=== PATIENT | female | born 1970 | race Caucasian/White ===

== ENCOUNTER 2016-09-30 17:02 | Observation (INO) | payer OTHER ==
[~2016-09-30] VITALS: Ht 167.6 cm; Wt 98.7 kg
[~2016-09-30 17:02] MED LIST: CHOL1CAP95 PO; GABA600T PO; MULT1CHW39 PO; PANT20TA PO; TRAM-10 PO; TYLOTC500 PO; VITAMIN B12 LIQUID PO
[2016-09-30] MEDS ORDERED: ASPIRIN 324 MG CHEW PO STA (17:45)
--- NOTE | 2016-09-30 17:59 | EMERGENCY ROOM VISIT NOTE ---
History First contact with patient: 17:34 Chief Complaint: CARDIAC ASSESSMENT Stated Complaint: FLUTTERING IN CHEST, TIGHTNESS, LT ARM TIGHTNESS History of Present Illness The patient is a 46 year old female who presents to the Emergency Room via private vehicle with complaints of "fluttering in chest, tightness, left arm tightness". Patient states that a week ago she developed chest pain/heaviness and fluttering in her chest and a sensation of clamminess then her heart felt like it was going to beat out of her chest. She notes that this has been off and on since that time she's experienced 3-4 episodes of fluttering per day. She notes that the last episode was today while at the urgent care with her daughter she had pain in the anterior chest that radiated to her arm and was pulling sensation. She was referred here for further evaluation. She states the episode lasted a few seconds and was 2 hours prior to arrival. There is associated nausea. She denies any abdominal pain, vomiting, or history, hypertension, chest pain currently. She denies any trauma or injury. Review of Systems A complete 10-point Review of Systems was discussed with the patient, with pertinent positives and negatives listed in the History of Present Illness. All remaining Review of Systems questions can be considered negative unless otherwise specified. Past Medical/Surgical History Medical Problems: (1) Chest pain radiating to arm (2) Palpitations (3) Right foot drop Family History Patient reports no known family medical history. Diabetes, heart disease, high blood pressure, gallbladder disease. Social History Smoking Status: Never Smoker Marital Status: Housing Status: unknown Occupation Status: unemployed Social History: Patient lives at home with children. Current/Historical Medications Scheduled Gabapentin (Neurontin), 400 MG PO HS Multiple Vitamins W/ Minerals (Multivitamin Gummies Wome), 1 UNIT PO QAM Pantoprazole (Protonix), 40 MG PO DAILY Scheduled PRN Tramadol (Ultram), 1 TAB PO BID PRN for Pain Allergies Coded Allergies: No Known Allergies (Unverified , 09/30/16) Physical Exam Vital Signs Date Time Temp Pulse Resp B/P Pulse Ox O2 Delivery O2 Flow Rate FiO2 09/30/16 20:46 74 18 102/64 100 Room Air 09/30/16 17:42 77 09/30/16 17:22 36.7 72 18 114/62 100 Room Air Physical Exam VITAL SIGNS - Vital signs and nursing notes were reviewed. Afebrile, normotensive, non-tachycardic and saturating on room air at 100%. GENERAL -46-year-old female appearing her stated age who is in no acute distress. Communicates well with provider and answers questions appropriately. SKIN - Without rashes. HEAD - NC/AT. EYES - PERRL with EOMI bilaterally. Sclera anicteric. Palpebral conjunctiva pink and moist with no injection noted. EARS - No deformities of external structures noted on gross examination bilaterally. No pain elicited with palpation of the tragus bilaterally. External auditory canals without discharge or otorrhea. Tympanic membranes pearly sherwood without retraction or bulging. No fluid or purulent material visualized behind the TM. Handle of malleus, umbo, cone of light, pars tensa/ flaccid all easily visualized. NOSE - Midline and without cyanosis. No epistaxis or purulent drainage noted. Septum midline without deviation or septal hematoma noted. MOUTH/OROPHARYNX - Without perioral cyanosis. Buccal mucosa pink and moist and without leukoplakia. Tongue midline with equal elevation of palate bilaterally. No tonsillar hypertrophy, erythema, or exudates noted. Good dentition noted. NECK - Neck with FROM. Supple to palpation. No lymphadenopathy noted. No nuchal rigidity. No Meningismus. LUNGS - Chest wall symmetric without accessory muscle use, intercostals retractions, or central cyanosis. Normal vesicular breath sounds CTA B/L. No wheezes, rales, or rhonchi appreciated. CARDIAC - RRR with S1/S2. No murmur, rubs, or gallops appreciated. ABDOMEN - Abdominal contour without pulsations or visible masses. BS normoactive all four quadrants. No tenderness, palpable masses, hepatosplenomegaly, or ascites noted. EXTREMITIES - No clubbing or peripheral cyanosis. No pretibial edema present. Vascularly intact. +5/5 strength noted in UE/LE bilaterally. NEUROLOGIC - Cranial nerves II through XII grossly intact. Sensory intact to light touch throughout. PSYCH - Pt is very pleasant and interacts well with examiner. Medical Decision & Procedures ER Provider Diagnostic Interpretation: CHEST ONE VIEW PORTABLE CLINICAL HISTORY: Chest pain dyspnea COMPARISON STUDY: No previous studies for comparison. FINDINGS: The bones soft tissues and hemidiaphragms are normal. The cardiomediastinal silhouette is normal. The lungs are clear. The pulmonary vasculature is normal. IMPRESSION: Negative chest. Electronically signed by: Karlos Rodriguez M.D. 09/30/2016 6:24 PM Dictated Date/Time: 09/30/2016 6:21 PM Laboratory Results 09/30/16 19:11 Red Blood Count 3.97, Mean Corpuscular Volume 92.2, Mean Corpuscular Hemoglobin 31.0, Mean Corpuscular Hemoglobin Concent 33.6, Mean Platelet Volume 10.3, Neutrophils (%) (Auto) 49.9, Lymphocytes (%) (Auto) 41.2, Monocytes (%) (Auto) 6.9, Eosinophils (%) (Auto) 1.4, Basophils (%) (Auto) 0.4, Neutrophils # (Auto) 2.53, Lymphocytes # (Auto) 2.09, Monocytes # (Auto) 0.35, Eosinophils # (Auto) 0.07, Basophils # (Auto) 0.02 09/30/16 19:11 Test 09/30/16 19:11 09/30/16 19:23 White Blood Count 5.07 K/uL (4.8-10.8) Red Blood Count 3.97 M/uL (4.2-5.4) Hemoglobin 12.3 g/dL (12.0-16.0) Hematocrit 36.6 % (37-47) Mean Corpuscular Volume 92.2 fL (80-100) Mean Corpuscular Hemoglobin 31.0 pg (25-34) Mean Corpuscular Hemoglobin Concent 33.6 g/dl (32-36) Platelet Count 205 K/uL (130-400) Mean Platelet Volume 10.3 fL (7.4-10.4) Neutrophils (%) (Auto) 49.9 % Lymphocytes (%) (Auto) 41.2 % Monocytes (%) (Auto) 6.9 % Eosinophils (%) (Auto) 1.4 % Basophils (%) (Auto) 0.4 % Neutrophils # (Auto) 2.53 K/uL (1.4-6.5) Lymphocytes # (Auto) 2.09 K/uL (1.2-3.4) Monocytes # (Auto) 0.35 K/uL (0.11-0.59) Eosinophils # (Auto) 0.07 K/uL (0-0.5) Basophils # (Auto) 0.02 K/uL (0-0.2) RDW Standard Deviation 46.0 fL (36.4-46.3) RDW Coefficient of Variation 13.6 % (11.5-14.5) Immature Granulocyte % (Auto) 0.2 % Immature Granulocyte # (Auto) 0.01 K/uL (0.00-0.02) Anion Gap 10.0 mmol/L (3-11) Est Creatinine Clear Calc Drug Dose 126.2 ml/min Estimated GFR () 122.5 Estimated GFR (Non- 105.7 BUN/Creatinine Ratio 17.7 (10-20) Calcium Level 8.3 mg/dl (8.5-10.1) Magnesium Level 2.0 mg/dl (1.8-2.4) Total Bilirubin 0.3 mg/dl (0.2-1) Aspartate Amino Transf (AST/SGOT) 25 U/L (15-37) Alanine Aminotransferase (ALT/SGPT) 28 U/L (12-78) Alkaline Phosphatase 49 U/L (45-117) Total Protein 6.6 gm/dl (6.4-8.2) Albumin 3.5 gm/dl (3.4-5.0) Globulin 3.1 gm/dl (2.5-4.0) Albumin/Globulin Ratio 1.1 (0.9-2) Thyroid Stimulating Hormone (TSH) 1.280 uIu/ml (0.300-4.500) Bedside Troponin I 0.000 ng/ml (0-0.045) Medications Administered Medications (Trade) Dose Ordered Sig/Monster Route Start Time Stop Time Status Last Admin Dose Admin Aspirin (Aspirin Chew) 324 mg NOW STAT PO 09/30/16 17:45 09/30/16 17:47 DC 09/30/16 18:10 324 MG Gabapentin (Neurontin Cap) 400 mg HS PO 09/30/16 21:00 10/30/16 20:59 10/01/16 01:14 400 MG Medical Decision Patient was seen and evaluated as above. After obtaining a thorough history and physical examination IV access was obtained and the above workup was initiated. There was concern for acute coronary event. She was given 324 mg chewable aspirin. Point care troponin was initiated, there was difficulty obtaining vascular access. Once this was obtained the blood work was initiated. CBC reveals no leukocytosis but slight anemia. CMP reveals no blood slight abnormality or evidence of kidney failure. Calcium was slightly low at 8.3. Magnesium was within normal limits. No evidence of liver failure. Troponin was 0 and TSH was normal. Although the patient did have normal laboratory findings I was concerned for unstable angina as the patient has had transient episodes of fluttering in the chest followed by chest pain and then sensation of feeling clammy. She also notes that she experiences the chest pain pathway up a flight of stairs. I am concerned that this may be angina, and although the patient as I have any risk factors I do believe she will benefit from inpatient admission for further evaluation and management. Case was thoroughly discussed with my attending, and the decision was made to admit the patient. Patient was thoroughly involved with this decision making and also elected to stay. Case was discussed with Dr. Garcia, and the patient will be admitted for further evaluation and management. Patient seemed happy with plan of care. Please refer to further documentation by hospital staff regarding her stay. In the evaluation and treatment of this patient following differential diagnoses were entertained: Acute coronary syndrome, myocardial infarction, pericarditis, pleurisy, PE, atrial fibrillation, among others. Impression Primary Impression: Chest pain radiating to arm Additional Impression: Palpitations Departure Information Dispostion Admitted as an inpatient Condition FAIR Referrals Wanda Quintero (PCP) Patient Instructions My [facility] Problem Qualifiers
[2016-09-30] MEDS ORDERED: GABA1CAP5 PO (18:00)
[2016-09-30] MEDS ORDERED: PANT40TA PO (18:00)
--- NOTE | 2016-09-30 18:26 | DIAGNOSTIC IMAGING REPORT ---
CHEST ONE VIEW PORTABLE CLINICAL HISTORY: Chest pain dyspnea COMPARISON STUDY: No previous studies for comparison. FINDINGS: The bones soft tissues and hemidiaphragms are normal. The cardiomediastinal silhouette is normal. The lungs are clear. The pulmonary vasculature is normal. IMPRESSION: Negative chest. Electronically signed by: Karlos Rodriguez M.D. 09/30/2016 6:24 PM Dictated Date/Time: 09/30/2016 6:21 PM
[2016-09-30 19:18] LABS: BASO % 0.4 %; BASO ABS # 0.02 K/uL (0-0.2); COMPLETE YES; EOS % 1.4 %; HEMATOCRIT 36.6 % (37-47); IG% 0.2 %; LYMPH % 41.2 %; LYMPH ABS # 2.09 K/uL (1.2-3.4); MEAN CELL VOLUME 92.2 fL (80-100); MEAN CORPUSCULAR HGB CONC 33.6 g/dl (32-36); MEAN PLATELET VOLUME 10.3 fL (7.4-10.4); MONO % 6.9 %; NEUT % 49.9 %; PLATELET COUNT 205 K/uL (130-400); RED BLOOD COUNT 3.97 M/uL (4.2-5.4); WHITE BLOOD COUNT 5.07 K/uL (4.8-10.8)
[2016-09-30 19:38] LABS: BUN/CREATININE RATIO 17.7 (10-20); CALCIUM 8.3 mg/dl (8.5-10.1); CREATININE 0.65 mg/dl (0.60-1.20); POTASSIUM 3.6 mmol/L (3.5-5.1)
[2016-09-30 19:48] LABS: ALB/GLOB RATIO 1.1 (0.9-2); THYROID STIMULATING HORMONE 1.28 uIu/ml (0.300-4.500)
[2016-09-30] MEDS ORDERED: LORAZEPAM 2 MG/ML 1 ML VIAL IV PRN (21:15)
[2016-09-30] MEDS ORDERED: PROMETHAZINE HCL INJ 12.5 MG in SODIUM CHLORIDE 0.9% 50ML 50 ML IV PRN (21:15)
[2016-09-30] MEDS ORDERED: ONDANSETRON INJ 2 MG/ML 2 ML VIAL IV PRN (21:15)
[2016-09-30] MEDS ORDERED: NITROGLYCERIN 0.4 MG SL PER TAB CHARGE SL PRN (21:15)
[2016-09-30] MEDS ORDERED: ZOLPIDEM TARTRATE 5 MG TAB PO PRN ×2 (21:15)
[2016-09-30] MEDS ORDERED: MAGNESIUM HYDROXIDE SUSP 30 ML UDC PO PRN (21:15)
[2016-09-30] MEDS ORDERED: ACETAMINOPHEN 325 MG TAB PO PRN ×2 (21:15)
[2016-09-30] MEDS ORDERED: ALUMINUM/MAGNESIUM/SIMETH (MAALOX MAX) 30 ML UDC PO PRN (21:15)
[2016-09-30] MEDS ORDERED: DiphenhydrAMINE HCL 50 MG/ML VIAL IV PRN (21:15)
[2016-09-30] MEDS ORDERED: IV FLUIDS COMPLETED PRN (21:45)
[2016-09-30 22:09] LABS: CKMB/CK RATIO 0.9 (0-3.0)
[2016-10-01] VITALS (9 sets, daily range): BP systolic 92–109; BP diastolic 55–69; PULSE 67–82; TEMP 36.7–36.9; O2SAT 97–99; Ht 167.6 cm; Wt 98.7 kg
[2016-10-01] MEDS: GABAPENTIN 400 MG CAP PO SCH ×2 (01:14→20:59)
[2016-10-01] MEDS: NSS + 20MEQ KCL 1000ML 1,000 ML IV SCH ×3 (01:14→19:19)
--- NOTE | 2016-10-01 01:34 | History and Physical ---
History & Physical Date & Time of Service: Oct 01, 2016 at 01:26 Chief Complaint: Chest Pain Radiating To Arm, Palpitations Primary Care Physician: Wanda Quintero History of Present Illness Source: patient, family The patient is a 46-year-old female who presents emergency department with complaint of fluttering/pulling sensation in her chest over the past 2 days, with more recent episode she's had radiation of discomfort to her left arm. The symptoms may happen with exertion or at rest. She does have a family history of a sister with tachycardia. She has not had any recent change in her diet pattern, physical activity pattern or sleep. Past Medical/Surgical History Medical Problems: (1) Right foot drop Status: Chronic Family History Patient reports no known family medical history. Social History Smoking Status: Never Smoker Smokeless Tobacco Use: No Alcohol Use: none Drug Use: none Marital Status: Housing status: lives with family Occupational Status: unemployed Multi-Drug Resistant Organisms History of MDRO: No Allergies Coded Allergies: No Known Allergies (Unverified , 09/30/16) Home Medications Scheduled Gabapentin (Neurontin), 400 MG PO HS Multiple Vitamins W/ Minerals (Multivitamin Gummies [place]), 1 UNIT PO QAM Pantoprazole (Protonix), 40 MG PO DAILY Scheduled PRN Tramadol (Ultram), 1 TAB PO BID PRN for Pain Review of Systems The patient denies shortness of breath, coughing, lower extremity swelling, vision change, hearing change, sore throat, fevers, chills, sweats, weight change, fatigue, nausea, vomiting, abdominal pain, pelvic pain, blood in urine or stool, dysuria, urinary frequency or urgency, lightheadedness, dizziness, headache, memory loss, rash, abnormal bruising or bleeding, imbalance, focal or generalized weakness, numbness or tingling in legs, arthralgias or myalgias, back or neck pain, night sweats, or allergy symptoms. The review of systems is otherwise negative other than for that already noted above, and at least 10 systems have been reviewed. Physical Exam Vital Signs Date Time Temp Pulse Resp B/P Pulse Ox O2 Delivery O2 Flow Rate FiO2 10/01/16 01:06 74 09/30/16 23:22 72 16 97/60 99 Room Air 09/30/16 21:59 74 09/30/16 20:46 74 18 102/64 100 Room Air 09/30/16 17:42 77 09/30/16 17:22 36.7 72 18 114/62 100 Room Air The patient is awake, well-developed and adequately nourished, alert and oriented 3, normocephalic and atraumatic, lying in bed and in no acute distress. HEENT--PERRL, EOMI, mucous membranes and oropharynx dry. Neck--supple, no JVD or bruits, thyroid normal, trachea midline, no adenopathy. Heart--normal S1 and S2, no extra beats, no murmurs, rubs or gallops. Lungs--clear bilaterally with good air movement, no respiratory distress, no accessory muscle use. Abdomen--normal bowel sounds and soft, nontender and nondistended, no hernias or masses, no organomegaly. Extremities--no cyanosis, clubbing or edema. There are good distal pulses b/l. Dermatologic--normal skin turgor, normal color, warm and dry, no abnormal lymph nodes, no rash. Neurologic--cranial nerves II through XII grossly intact, motor and sensory examination normal. Rheumatologic--normal range of motion, nontender, muscles and joints. Psychiatric--normal affect. Diagnostics Laboratory Results Results Past 24 Hours Test 09/30/16 19:11 09/30/16 19:23 09/30/16 21:32 Range/Units White Blood Count 5.07 4.8-10.8 K/uL Red Blood Count 3.97 4.2-5.4 M/uL Hemoglobin 12.3 12.0-16.0 g/dL Hematocrit 36.6 37-47 % Mean Corpuscular Volume 92.2 80-100 fL Mean Corpuscular Hemoglobin 31.0 25-34 pg Mean Corpuscular Hemoglobin Concent 33.6 32-36 g/dl Platelet Count 205 130-400 K/uL Mean Platelet Volume 10.3 7.4-10.4 fL Neutrophils (%) (Auto) 49.9 % Lymphocytes (%) (Auto) 41.2 % Monocytes (%) (Auto) 6.9 % Eosinophils (%) (Auto) 1.4 % Basophils (%) (Auto) 0.4 % Neutrophils # (Auto) 2.53 1.4-6.5 K/uL Lymphocytes # (Auto) 2.09 1.2-3.4 K/uL Monocytes # (Auto) 0.35 0.11-0.59 K/uL Eosinophils # (Auto) 0.07 0-0.5 K/uL Basophils # (Auto) 0.02 0-0.2 K/uL RDW Standard Deviation 46.0 36.4-46.3 fL RDW Coefficient of Variation 13.6 11.5-14.5 % Immature Granulocyte % (Auto) 0.2 % Immature Granulocyte # (Auto) 0.01 0.00-0.02 K/uL Sodium Level 140 136-145 mmol/L Potassium Level 3.6 3.5-5.1 mmol/L Chloride Level 104 98-107 mmol/L Carbon Dioxide Level 26 21-32 mmol/L Anion Gap 10.0 3-11 mmol/L Blood Urea Nitrogen 11 7-18 mg/dl Creatinine 0.65 0.60-1.20 mg/dl Est Creatinine Clear Calc Drug Dose 126.2 ml/min Estimated GFR () 122.5 Estimated GFR (Non- 105.7 BUN/Creatinine Ratio 17.7 10-20 Random Glucose 80 70-99 mg/dl Calcium Level 8.3 8.5-10.1 mg/dl Magnesium Level 2.0 1.8-2.4 mg/dl Total Bilirubin 0.3 0.2-1 mg/dl Aspartate Amino Transf (AST/SGOT) 25 15-37 U/L Alanine Aminotransferase (ALT/SGPT) 28 12-78 U/L Alkaline Phosphatase 49 45-117 U/L Total Creatine Kinase 146 135 26-192 U/L Creatine Kinase MB 1.5 1.2 0.5-3.6 ng/ml Creatine Kinase MB Ratio 1.0 0.9 0-3.0 Total Protein 6.6 6.4-8.2 gm/dl Albumin 3.5 3.4-5.0 gm/dl Globulin 3.1 2.5-4.0 gm/dl Albumin/Globulin Ratio 1.1 0.9-2 Thyroid Stimulating Hormone (TSH) 1.280 0.300-4.500 uIu/ml Bedside Troponin I 0.000 0-0.045 ng/ml Troponin I < 0.015 0-0.045 ng/ml Diagnostic Radiology Patient Name: DOREEN HORTON Unit Number: [id number] Dictated: 09/30/161820 Transcribed: 09/30/161820 MS Printed Date/Time: [~ rep prt dt]/[~ rep prt tm] [~ rep ct labl] - [~ rep ct ivnm] [facility] [place] [address] Dictated: 09/30/161820 Transcribed: 09/30/161820 MS Printed Date/Time: [~ rep prt dt]/[~ rep prt tm] [~ rep ct labl] - [~ rep ct ivnm] CHEST ONE VIEW PORTABLE CLINICAL HISTORY: Chest pain dyspnea COMPARISON STUDY: No previous studies for comparison. FINDINGS: The bones soft tissues and hemidiaphragms are normal. The cardiomediastinal silhouette is normal. The lungs are clear. The pulmonary vasculature is normal. IMPRESSION: Negative chest. Electronically signed by: Karlos Rodriguez M.D. 09/30/2016 6:24 PM Dictated Date/Time: 09/30/2016 6:21 PM The status of this report is Signed. Draft = Not yet reviewed or approved by Radiologist. Signed = Reviewed and approved by Radiologist. <AttendingPhy></AttendingPhy> <FamilyPhy>Wanda QuinteroRJimmyNJimmyPJimmy</FamilyPhy> < PrimaryPhy>Wanda QuinteroRJimmyNJimmyP.</PrimaryPhy> <UnitNumber>[id number]</ UnitNumber> <VisitNumber>[id number]</VisitNumber> <PatientName>DOREEN HORTON</PatientName> <DateOfBirth>1970</DateOfBirth> <Location>[facility]< /Location> <ServiceDate>09/30/16</ServiceDate> <MNE>ESINDI</MNE> <OrderingPhy> Skyler Edwards PA-C</OrderingPhy> <OrderingPhyMNE>f rep ord dr marin</ OrderingPhyMNE> <DictatingPhyMNE>f rep dict dr marin</DictatingPhyMNE> <CCListMNE> f rep ct mne</CCListMNE> <AdmittingPhyMNE>f pt admit dr marin</AdmittingPhyMNE> < AttendingPhyMNE>f pt attend dr marin</AttendingPhyMNE> <ConsultingPhyMNE>f pt consult dr marin</ConsultingPhyMNE> <FamilyPhyMNE>f pt fam dr marin</FamilyPhyMNE> <OtherPhyMNE>f pt other dr marin</OtherPhyMNE> < PrimaryPhyMNE>f pt prim care dr marin</PrimaryPhyMNE> <ReferringPhyMNE>f pt referring dr marin</ReferringPhyMNE> EKG EKG shows normal sinus rhythm at 73 bpm, there are no acute ST-T changes. Impression Assessment and Plan Palpitations/fluttering in chest, accompanied by tightness, and more recently radiation to her left arm--the patient be admitted to the telemetry unit, for serial cardiac enzymes, cardiac rhythm monitoring and a 2-D echocardiogram with Dopplers. If the above studies are negative, she should have a stress echocardiogram prior to discharge. Lumbar degenerative disc disease/right foot drop--she is at her baseline at this time no active issues going on. Continue gabapentin 400 mg by mouth at bedtime. GERD--continue pantoprazole 40 mg by mouth daily. Vitamin B-12 deficiency--takes B12 liquid as an outpatient. Level of Care Telemetry Advanced Directives Existing Advance Directive: No Existing Living Will: No Existing Power of Meter Shop Superintendent: No Resuscitation Status FULL RESUSCITATION VTE Prophylaxis VTE Risk Assessment Done? Y/N: Yes Risk Level: Moderate Given or contraindicated: SCD's Social Service Consult None Apply
[2016-10-01 05:08] LABS: BASO % 0.2 %; BASO ABS # 0.01 K/uL (0-0.2); COMPLETE YES; EOS % 2.2 %; HEMATOCRIT 35.9 % (37-47); IG% 0.2 %; LYMPH % 43.6 %; LYMPH ABS # 1.79 K/uL (1.2-3.4); MEAN CELL VOLUME 92.5 fL (80-100); MEAN CORPUSCULAR HEMOGLOBIN 30.9 pg (25-34); MEAN CORPUSCULAR HGB CONC 33.4 g/dl (32-36); MEAN PLATELET VOLUME 10.2 fL (7.4-10.4); MONO % 8.3 %; NEUT % 45.5 %; PLATELET COUNT 193 K/uL (130-400); RED BLOOD COUNT 3.88 M/uL (4.2-5.4); WHITE BLOOD COUNT 4.11 K/uL (4.8-10.8)
[2016-10-01 05:29] LABS: BLOOD UREA NITROGEN 10 mg/dl (7-18); BUN/CREATININE RATIO 16.3 (10-20); CALCIUM 7.9 mg/dl (8.5-10.1); CARBON DIOXIDE 27 mmol/L (21-32); CHLORIDE 109 mmol/L (98-107); CREATININE 0.62 mg/dl (0.60-1.20); GLUCOSE 86 mg/dl (70-99); POTASSIUM 3.9 mmol/L (3.5-5.1); SODIUM 143 mmol/L (136-145)
[2016-10-01 05:34] LABS: CKMB/CK RATIO 0.9 (0-3.0)
[2016-10-01] MEDS: TRAMADOL HCL 50 MG TAB PO PRN (08:03)
[2016-10-01] MEDS: CEROVITE ADV FORMULA TAB PO SCH (08:03)
[2016-10-01] MEDS: PANTOprazole SOD 40 MG TAB PO SCH (08:03)
[2016-10-01 13:58] LABS: CKMB/CK RATIO 0.9 (0-3.0)
--- NOTE | 2016-10-01 14:54 | Progress Note ---
Subjective Date of Service: Oct 01, 2016. Subjective Pt evaluation today including: conversation w/ patient, conversation w/ family , physical exam, chart review, lab review, review of studies, conversation w/ surgery consultant, review of inpatient medication list Mild anxious, no more palpitations and fluttering no chest pain, no other complaint, Problem List Medical Problems: (1) Right knee pain Status: Acute Review of Systems Constitutional: + fatigue, No chills, No fever, No problem reported, No sweats , No weight loss Eyes: No diplopia, No discharge, No eye pain, No redness, No worsening of vision ENT: No dental problems, No hearing loss, No nasal symptoms, No sore throat, No tinnitus, No trouble swallowing, No unusual epistaxis Respiratory: No cough, No dyspnea at rest, No dyspnea on exertion, No hemoptysis, No shortness of breath, No sputum, No wheezing Cardiac: No PND, No chest pain, No claudication, No edema, No orthopnea, No palpitations Abdomen: No constipation, No diarrhea, No nausea, No pain, No vomiting Musculoskeletal: No calf pain, No joint pain, No muscle pain, No swelling Female : No abnormal vaginal bleeding, No dysuria, No hematuria, No incontinence, No urinary frequency, No vaginal discharge Neurologic: No balance problems, No memory loss, No numbness/tingling, No paralysis, No vertigo, No weakness Psychiatric: No anhedonism, No anxiety, No depression symptoms, No insomnia, No substance abuse Heme: No abnormal bleeding/bruising, No clotting problems, No night sweats, No swollen lymph nodes Endo: No excessive thirst, No excessive urination, No fatigue Skin: No bleeding, No color change, No itch, No new/changing skin lesions, No rash Objective Vital Signs Date Time Temp Pulse Resp B/P Pulse Ox O2 Delivery O2 Flow Rate FiO2 10/01/16 12:15 Room Air 10/01/16 11:37 36.7 73 16 109/59 99 Room Air 10/01/16 08:00 Room Air 10/01/16 07:41 70 10/01/16 07:33 36.9 74 16 102/55 97 Room Air 10/01/16 05:10 69 10/01/16 04:40 36.9 67 104/62 98 Room Air 10/01/16 04:40 Room Air 10/01/16 02:03 36.7 77 16 95/55 98 Room Air 10/01/16 01:06 74 09/30/16 23:22 72 16 97/60 99 Room Air 09/30/16 21:59 74 09/30/16 20:46 74 18 102/64 100 Room Air 09/30/16 17:42 77 09/30/16 17:22 36.7 72 18 114/62 100 Room Air Physical Exam General Appearance: WD/WN, no apparent distress, + obese Eyes: normal inspection, PERRL, EOMI, sclerae normal ENT: normal ENT inspection, hearing grossly normal, pharynx normal Neck: supple, no adenopathy, thyroid normal, no JVD, no carotid bruits, trachea midline Respiratory/Chest: chest non-tender, lungs clear, normal breath sounds, no respiratory distress, no accessory muscle use Cardiovascular: regular rate, rhythm, no edema, no gallop, no JVD, no murmur Abdomen: normal bowel sounds, non tender, soft, no organomegaly, no pulsatile mass Extremities: normal range of motion, non-tender, normal inspection, no pedal edema, no calf tenderness, normal capillary refill, pelvis stable Neurologic/Psychiatric: certified peer specialist II-XII nml as tested, no motor/sensory deficits, alert, normal mood/affect, oriented x 3 Skin: normal color, warm/dry, no rash Lymphatic: no adenopathy Laboratory Results Last 24 Hours Test 09/30/16 19:11 09/30/16 19:23 09/30/16 21:32 10/01/16 04:55 White Blood Count 5.07 K/uL 4.11 K/uL Red Blood Count 3.97 M/uL 3.88 M/uL Hemoglobin 12.3 g/dL 12.0 g/dL Hematocrit 36.6 % 35.9 % Mean Corpuscular Volume 92.2 fL 92.5 fL Mean Corpuscular Hemoglobin 31.0 pg 30.9 pg Mean Corpuscular Hemoglobin Concent 33.6 g/dl 33.4 g/dl Platelet Count 205 K/uL 193 K/uL Mean Platelet Volume 10.3 fL 10.2 fL Neutrophils (%) (Auto) 49.9 % 45.5 % Lymphocytes (%) (Auto) 41.2 % 43.6 % Monocytes (%) (Auto) 6.9 % 8.3 % Eosinophils (%) (Auto) 1.4 % 2.2 % Basophils (%) (Auto) 0.4 % 0.2 % Neutrophils # (Auto) 2.53 K/uL 1.87 K/uL Lymphocytes # (Auto) 2.09 K/uL 1.79 K/uL Monocytes # (Auto) 0.35 K/uL 0.34 K/uL Eosinophils # (Auto) 0.07 K/uL 0.09 K/uL Basophils # (Auto) 0.02 K/uL 0.01 K/uL RDW Standard Deviation 46.0 fL 47.1 fL RDW Coefficient of Variation 13.6 % 13.9 % Immature Granulocyte % (Auto) 0.2 % 0.2 % Immature Granulocyte # (Auto) 0.01 K/uL 0.01 K/uL Sodium Level 140 mmol/L 143 mmol/L Potassium Level 3.6 mmol/L 3.9 mmol/L Chloride Level 104 mmol/L 109 mmol/L Carbon Dioxide Level 26 mmol/L 27 mmol/L Anion Gap 10.0 mmol/L 7.0 mmol/L Blood Urea Nitrogen 11 mg/dl 10 mg/dl Creatinine 0.65 mg/dl 0.62 mg/dl Est Creatinine Clear Calc Drug Dose 126.2 ml/min 132.3 ml/min Estimated GFR () 122.5 124.5 Estimated GFR (Non- 105.7 107.4 BUN/Creatinine Ratio 17.7 16.3 Random Glucose 80 mg/dl 86 mg/dl Calcium Level 8.3 mg/dl 7.9 mg/dl Magnesium Level 2.0 mg/dl 2.0 mg/dl Total Bilirubin 0.3 mg/dl Aspartate Amino Transf (AST/SGOT) 25 U/L Alanine Aminotransferase (ALT/SGPT) 28 U/L Alkaline Phosphatase 49 U/L Total Creatine Kinase 146 U/L 135 U/L 114 U/L Creatine Kinase MB 1.5 ng/ml 1.2 ng/ml 1.0 ng/ml Creatine Kinase MB Ratio 1.0 0.9 0.9 Total Protein 6.6 gm/dl Albumin 3.5 gm/dl Globulin 3.1 gm/dl Albumin/Globulin Ratio 1.1 Thyroid Stimulating Hormone (TSH) 1.280 uIu/ml Bedside Troponin I 0.000 ng/ml Troponin I < 0.015 ng/ml < 0.015 ng/ml Test 10/01/16 13:20 Total Creatine Kinase 111 U/L Creatine Kinase MB 1.0 ng/ml Creatine Kinase MB Ratio 0.9 Troponin I < 0.015 ng/ml Assessment and Plan 46-year-old WF was In observation because of typical chest pain from 09/30/2016 Palpitations/fluttering in chest, accompanied by tightness, and more recently had a typical chest pain episodes with chest pain radiation to her left arm Chest x-ray, EKG, cardiac enzyme troponin, results was reviewed, not remarkable TSH is normal range a echo was done no formal report is yet Discussed with patient and family about care plan, patient has typical chest pain, palpitation for couple days, family history of significant heart disease sister has heart attack, I feel patient will be related benefit to have a stress echo,, she probably need to event monitor all Holter as outpatient with PCP as well. Patient has right sided foot drop, I believe she need dobutamine stress echo Continue telemetry uni Lumbar degenerative disc disease/right foot drop stable Continue gabapentin 400 mg by mouth at bedtime. GERD--continue pantoprazole 40 mg by mouth daily. Vitamin B-12 deficiency--takes B12 liquid as an outpatient. GI and DVT prophylaxis Continued [facility] stay due to: home environment unsafe for pt Discharge planning: home
--- NOTE | 2016-10-01 16:55 | ECHOCARDIOGRAM REPORT ---
*NOTICE TO RECEIVING REPUBLICAN AGENCY This information is strictly Confidential and protected under [place] law. [place] law prohibits you from making any further disclosure of this information unless further disclosure is expressly permitted by the written consent of the person to whom it pertains or is authorized by law. A general authorization for the release of medical or other information is not sufficient for this purpose. Hospital accepts no responsibility if the information is made available to any other person, INCLUDING THE PATIENT. Interpretation Summary * Name: DOREEN HORTON Study Date: 10/01/2016 07:51 AM BP: 104/62 mmHg * Patient Location: [facility] HR: 71 * : 1970 (M/d/yyyy) Gender: Female Height: 66 in * Age: 46 yrs Ethnicity: CA Weight: 215 lb * Ordering Physician: Vinnie Wesley * Referring Physician: Laurent Epstein * Performed By: Chacha Vallecillo RCS * * Reason For Study: PALPITATIONS * BSA: 2.1 m2 * -- Conclusions -- * 1. Normal left ventricular size and systolic function. EF 55-60%. No regional wall motion abnormalities. No left ventricular hypertrophy. No significant diastolic dysfunction. * 2. No significant valvular abnormalities. * 3. No prior study available for comparison. Procedure Details * A complete two-dimensional transthoracic echocardiogram was performed (2D, M-mode, Doppler and color flow Doppler). Left Ventricle * Normal left ventricular size and systolic function. EF 55-60%. No regional wall motion abnormalities. No left ventricular hypertrophy. No significant diastolic dysfunction. Right Ventricle * The right ventricle is normal in size and function. * The right ventricular systolic function is normal as assessed by tricuspid annular plane systolic excursion (TAPSE) (normal >1.5 cm). Atria * The left atrial size is normal. * Right atrial size is normal. * There is no evidence of atrial septal defect, but resolution does not allow assessment for a patent foramen ovale. Mitral Valve * The mitral valve leaflets appear normal. There is no evidence of stenosis, fluttering, or prolapse. * There is no mitral valve stenosis. * There is trace mitral regurgitation. Tricuspid Valve * The tricuspid valve is not well visualized, but is grossly normal. * There is no tricuspid stenosis. * There is trace tricuspid regurgitation. Aortic Valve * The aortic valve is trileaflet. * No hemodynamically significant valvular aortic stenosis. * No aortic regurgitation is present. Pulmonic Valve * The pulmonary valve is inadequately visualized, but the Doppler data is adequate for interpretation. * There is no pulmonic valvular stenosis. * Trace pulmonic valvular regurgitation. Great Vessels * The aortic root is normal size. * Aortic arch of normal dimension. * Normal hepatic and pulmonary venous flow patterns. Pericardium/Pleural * There is no pericardial effusion. Great Vessels * Normal inferior vena cava size and collapsability with sniff indicates a normal right atrial pressure of 3 mmHg MMode 2D Measurements and Calculations IVSd 1.1 cm IVSs 1.3 cm LVIDd 4.2 cm LVIDs 2.8 cm LVPWd 10 cm LVPWs 1.3 cm IVS/LVPW 1.1 FS 33.6 % EDV(Teich) 80.6 ml ESV(Teich) 30.0 ml EF(Teich) 62.8 % EDV(cubed) 76.5 ml ESV(cubed) 22.4 ml EF(cubed) 70.8 % % IVS thick 19.5 % % LVPW thick 35.2 % LV mass(C)d 151.9 grams LV mass(C)dI 73.6 grams/m\S\2 LV mass(C)s 121.3 grams LV mass(C)sI 58.8 grams/m\S\2 SV(Teich) 50.6 ml SI(Teich) 24.5 ml/m\S\2 SV(cubed) 54.1 ml SI(cubed) 26.2 ml/m\S\2 Ao root diam 3.4 cm Ao root area 9.2 cm\S\2 LA dimension 3.3 cm LA/Ao 0.95 LVOT diam 2.0 cm LVOT area 3.1 cm\S\2 LVAd ap4 25.7 cm\S\2 LVLd ap4 7.7 cm EDV(MOD-sp4) 70.3 ml EDV(sp4-el) 72.4 ml LVAs ap4 14.9 cm\S\2 LVLs ap4 6.4 cm ESV(MOD-sp4) 31.1 ml ESV(sp4-el) 29.8 ml EF(MOD-sp4) 55.8 % EF(sp4-el) 58.9 % SV(MOD-sp4) 39.2 ml SI(MOD-sp4) 19.0 ml/m\S\2 SV(sp4-el) 42.7 ml SI(sp4-el) 20.7 ml/m\S\2 Doppler Measurements and Calculations MV E max payal 63.6 cm/sec MV A max payal 41.0 cm/sec MV E/A 1.6 MV P1/2t max payal 81.1 cm/sec MV P1/2t 78.4 msec MVA(P1/2t) 2.8 cm\S\2 MV dec slope 302.8 cm/sec\S\2 MV dec time 0.27 sec Ao V2 max 100.0 cm/sec Ao max PG 4.0 mmHg Ao max PG (full) 1.6 mmHg HANNA(V,A) 2.4 cm\S\2 HANNA(V,D) 2.4 cm\S\2 LV V1 max PG 2.4 mmHg LV V1 max 77.1 cm/sec TV E max payal 55.5 cm/sec PA V2 max 94.2 cm/sec PA max PG 3.5 mmHg PI max payal 153.0 cm/sec PI max PG 9.4 mmHg PI dec slope 191.4 cm/sec\S\2 PI P1/2t 234.1 msec RAP systole 3.0 mmHg
[2016-10-02] VITALS: O2SAT 98
[2016-10-02 04:00] VITALS: O2SAT 98
[2016-10-02 04:04] VITALS: BP 100/66; PULSE 76; TEMP 36.9; O2SAT 97
[2016-10-02] MEDS: NSS + 20MEQ KCL 1000ML 1,000 ML IV SCH (05:12)
[2016-10-02 07:54] LABS: BASO % 0.2 %; BASO ABS # 0.01 K/uL (0-0.2); COMPLETE YES; EOS % 1.9 %; HEMATOCRIT 35.8 % (37-47); IG% 0.2 %; LYMPH % 36.3 %; LYMPH ABS # 1.76 K/uL (1.2-3.4); MEAN CELL VOLUME 93.2 fL (80-100); MEAN CORPUSCULAR HGB CONC 33.2 g/dl (32-36); MONO % 6.6 %; NEUT % 54.8 %; PLATELET COUNT 178 K/uL (130-400); RED BLOOD COUNT 3.84 M/uL (4.2-5.4); WHITE BLOOD COUNT 4.85 K/uL (4.8-10.8)
[2016-10-02 08:00] VITALS: O2SAT 98
[2016-10-02 08:07] VITALS: BP 96/59; PULSE 80; TEMP 36.9; O2SAT 94
[2016-10-02 08:19] LABS: BUN/CREATININE RATIO 13.2 (10-20); CALCIUM 7.9 mg/dl (8.5-10.1); CREATININE 0.62 mg/dl (0.60-1.20); POTASSIUM 4.1 mmol/L (3.5-5.1)
[2016-10-02 08:22] LABS: CHOLESTEROL/HDL RATIO 2.9
[2016-10-02] MEDS: TRAMADOL HCL 50 MG TAB PO PRN (08:24)
[2016-10-02] MEDS ORDERED: ATROPINE SULFATE 0.1 MG/ML 5ML SYR ONE (08:28)
[2016-10-02] MEDS ORDERED: DOBUTamine HCL 12.5 MG/ML 20 ML VIAL ONE (08:28)
[2016-10-02] MEDS: CEROVITE ADV FORMULA TAB PO SCH (08:28)
[2016-10-02] MEDS ORDERED: METOPROLOL TARTRATE 1 MG/ML VIAL ONE (08:28)
[2016-10-02 09:07] LABS: ESTIMATED AVERAGE GLUCOSE 100 mg/dl; HA1C FLAG Normal (Normal)
[2016-10-02] MEDS: PANTOprazole SOD 40 MG TAB PO SCH (10:20)
[2016-10-02] MEDS ORDERED: NTRSLP4 SL (11:01)
--- NOTE | 2016-10-02 11:03 | Discharge Instructions ---
Discharge Instructions Admission Reason for Admission: Chest Pain Radiating To Arm, Palpitations Discharge Discharge Diagnosis / Problem: atipical chest pain Discharge Goals Goal(s): Decrease discomfort, Improve function, Increase independence, Improve disease control, Improve nutritional status, Learn about illness, Diagnostic testing, Therapeutic intervention, Prevent Disease Progression, Specific goals Activity Recommendations Activity Limitations: resume your previous activity . Instructions / Follow-Up Instructions / Follow-Up you have atypical chest pain you have Palpitations/fluttering in chest, all the tests so far are unremarkable - you need to follow up with your primary care physician in 1 week, - take medication as instructed, never overdose or any misuse, or take with alcohol, because misuse of medicine may cause organ damage or , call your primary care physician if have questions of medicaitons. - call your primary care physician OR go to local emergency room if has any fever/chill, chest pain, shortness of breathing, nausea/vomiting/abdominal pain , facial droop/slurry speech/local weakness, or if has any questions. - fall precaution - diet as instructed - you need to follow up with your subspecialist - you should understand that it is important to follow up the above instruction , and "not following the above instruction" may cause delayed or missed care of your medical conditions which may cause permanent organ damage and even . Current Hospital Diet Patient's current hospital diet: AHA Diet (Heart Healthy) Discharge Diet Recommended Diet: AHA Diet (Heart Healthy) Pending Studies Studies pending at discharge: no Laboratory Results Hemoglobin A1c Test 10/02/16 07:26 Range/Units Estimated Average Glucose 100 mg/dl Hemoglobin A1c 5.1 4.5-5.6 % Lipid Panel Test 10/02/16 07:26 Range/Units Triglycerides Level 111 0-150 mg/dl Cholesterol Level 149 0-200 mg/dl HDL Cholesterol 52 mg/dl Cholesterol/HDL Ratio 2.9 LDL Cholesterol, Calculated 75 mg/dl Medical Emergencies . Who to Call and When: Medical Emergencies: If at any time you feel your situation is an emergency, please call 911 immediately. . Non-Emergent Contact Non-Emergency issues call your: Primary Care Provider . . "Provider Documentation" section prepared by Toni Heart. VTE Core Measure Inpt VTE Proph given/why not?: SCD's
--- NOTE | 2016-10-02 11:14 | DOBUTAMINE ECHO ---
*NOTICE TO RECEIVING CONSTITUTION PARTY AGENCY This information is strictly Confidential and protected under [place] law. [place] law prohibits you from making any further disclosure of this information unless further disclosure is expressly permitted by the written consent of the person to whom it pertains or is authorized by law. A general authorization for the release of medical or other information is not sufficient for this purpose. Hospital accepts no responsibility if the information is made available to any other person, INCLUDING THE PATIENT. Interpretation Summary * Name: DOREEN HORTON Study Date: 10/02/2016 10:29 AM BP: 93/66 mmHg * Patient Location: .[facility]\S\N288\S\2 HR: 77 * : 1970 (M/d/yyyy) Gender: Female Height: 66 in * Age: 46 yrs Ethnicity: [place] Weight: 215 lb * Ordering Physician: Toni Heart * Referring Physician: Laurent Epstein * Performed By: Chacha Vallecillo RCS * * Reason For Study: CHEST PAIN * BSA: 2.1 m2 * -- Conclusions -- * Stress Echo: * 1. Negative dobutamine stress echo for ischemia at 88% MPHR. * 2. Negative dobutamine ECG for ischemia at 88% MPHR. * 3. Right sided chest discomfort described during dobutamine infusion, which was different than her presenting symptom according to her report. She was tender in that area during her chest pain episode. There were no ischemic ECG or echo changes during that time. * 4. Hypotensive response to dobutamine (mild). * 5. No arrhythmia. Procedure Details * DOBUTAMINE ECHO, CPT#41018 Left Ventricle * The left ventricle is normal in size. * Left ventricular systolic function is normal. * Resting wall motion: Normal. Stress wall motion: Appropriate increase in Left ventricular systolic function and decrease in cavity size. No stress induced segmental wall motion abnormalities. * The left ventricular ejection fraction increases normally with stress. The left ventricular end-systolic cavity size reduces post-stress (normal response). The left ventricular wall motion with stress is normal. Stress Parameters * NSR 78 bpm. * Stress ECG: No ST changes. No arrhythmias. * No arrhythmia were noted with stress. * The stress portion of this study was personally supervised by the undersigned interpreting physician. * Rest heart rate was '77' BPM. * Rest blood pressure was '93/66' * Maximum heart rate achieved was 153 bpm. * Maximum heart rate was 88 % of maximum age-predicted heart rate. * Maximum blood pressure was '114/56' * Maximum Dobutamine infusion rate was '40' mcg/kg/min. * Dobutamine infusion was terminated due to achieving target heart rate * A total of 2.50 mg of IV Metoprolol was administered to reverse Dobutamine-induced tachycardia. * Right sided chest discomfort described during dobutamine infusion. It was tender to palpation in that area. It was different than the chest pain for which she presented. Dobutamine induced hypotension, with a low blood pressure 88/35 mmHg.
--- NOTE | 2016-10-02 11:25 | Discharge Summary ---
Discharge Summary Date of Service Oct 02, 2016. Discharge Summary Admission Date: Sep 30, 2016 at 21:07 Discharge Date: Oct 02, 2016 Discharge Disposition: Home Principal Diagnosis: atypical chest pain Problems/Secondary Diagnoses: Palpitations/fluttering in chest, Procedures: Stress echo Consultations: No Medication Reconciliation New Medications: Nitroglycerin (Nitrostat) 0.4 Mg/1 Tab Subl 0.4 MG SL UD PRN for Chest Pain for 30 Days, #30 Continued Medications: Gabapentin (Neurontin) 400 Mg Cap 400 MG PO HS, CAP Multiple Vitamins W/ Minerals (Multivitamin Gummies Wome) 1 Chw Chw 1 UNIT PO QAM Pantoprazole (Protonix) 40 Mg Tab 40 MG PO DAILY, #30 TAB Tramadol (Ultram) 50 Mg Tab 1 TAB PO BID PRN for Pain for 30 Days, #60 TAB Discharge Exam Doing well, no more chest pain Review of Systems: Constitutional: No chills, No fatigue, No fever, No problem reported, No sweats, No weakness, No weight loss Eyes: No diplopia, No discharge, No eye pain, No problem reported, No redness, No worsening of vision ENT: No dental problems, No hearing loss, No nasal symptoms, No problem reported, No sore throat, No tinnitus, No trouble swallowing, No unusual epistaxis Respiratory: No cough, No dyspnea at rest, No dyspnea on exertion, No hemoptysis, No problem reported, No shortness of breath, No sputum, No wheezing Cardiovascular: No PND, No chest pain, No claudication, No edema, No orthopnea, No palpitations, No problem reported Abdomen: No GI bleeding, No constipation, No diarrhea, No nausea, No pain, No problem reported, No vomiting Genitourinary - Female: No dysmenorrhea, No dysuria, No hematuria, No menorrhagia, No metrorrhagia, No , No problem reported, No rash, No urinary frequency, No urinary incontinence, No urinary retention, No urinary urgency, No vaginal bleeding, No vaginal discharge, No vaginal itching, No vulvodynia Neurologic: No balance problems, No memory loss, No numbness/tingling, No paralysis, No problem reported, No vertigo, No weakness Psychiatric: No anhedonism, No anxiety, No depression symptoms, No insomnia , No problem reported, No substance abuse Endocrine: No excessive thirst, No excessive urination, No fatigue, No problem reported Hematologic / Lymphatic: No abnormal bleeding/bruising, No clotting problems , No night sweats, No problem reported, No swollen lymph nodes Integumentary: No bleeding, No color change, No itch, No new/changing skin lesions, No problem reported, No rash Physical Exam: General Appearance: WD/WN, no apparent distress, + obese Eyes: normal inspection, PERRL ENT: normal ENT inspection, hearing grossly normal, TMs normal Neck: supple, no adenopathy Respiratory/Chest: chest non-tender, lungs clear, normal breath sounds, no respiratory distress Cardiovascular: regular rate, rhythm, no edema, no gallop, no JVD Abdomen / GI: normal bowel sounds, non tender, no organomegaly, no pulsatile mass Extremities: normal inspection, no calf tenderness, normal capillary refill Neurologic/Psychiatric: assistant distribution manager II-XII nml as tested, no motor/sensory deficits , normal reflexes, oriented x 3 Skin: normal color, warm/dry Hospital Course 46-year-old WF was In observation because of typical chest pain from 09/30/2016 Palpitations/fluttering in chest, accompanied by tightness, and more recently had a typical chest pain episodes with chest pain radiation to her left arm Chest x-ray, EKG, cardiac enzyme troponin, results was reviewed, not remarkable TSH is normal range Stress echo was done it was negative, therefore is atypical chest pain Fasting lipid panel was done, LDL less than 100, total cholesterol less than 200 , HbA1c was done which was 7, I encouraged her to continue healthy lifestyle and healthy diet, Stress echo results Conclusions -- * Stress Echo: * 1. Negative dobutamine stress echo for ischemia at 88% MPHR. * 2. Negative dobutamine ECG for ischemia at 88% MPHR. * 3. Right sided chest discomfort described during dobutamine infusion, which was different than her presenting symptom according to her report. She was tender in that area during her chest pain episode. There were no ischemic ECG or echo changes during that time. * 4. Hypotensive response to dobutamine (mild). * 5. No arrhythmia. Lumbar degenerative disc disease/right foot drop stable Continue gabapentin 400 mg by mouth at bedtime. GERD--continue pantoprazole 40 mg by mouth daily. Vitamin B-12 deficiency--takes B12 liquid as an outpatient. GI and DVT prophylaxis Instructions / Follow-Up you have atypical chest pain you have Palpitations/fluttering in chest, all the tests so far are unremarkable - you need to follow up with your primary care physician in 1 week, - take medication as instructed, never overdose or any misuse, or take with alcohol, because misuse of medicine may cause organ damage or , call your primary care physician if have questions of medicaitons. - call your primary care physician OR go to local emergency room if has any fever/chill, chest pain, shortness of breathing, nausea/vomiting/abdominal pain , facial droop/slurry speech/local weakness, or if has any questions. - fall precaution - diet as instructed - you need to follow up with your subspecialist - you should understand that it is important to follow up the above instruction , and "not following the above instruction" may cause delayed or missed care of your medical conditions which may cause permanent organ damage and even . Total Time Spent: Less than 30 minutes This includes examination of the patient, discharge planning, medication reconciliation, and communication with other providers. Discharge Instructions Please refer to the electronic Patient Visit Report (Discharge Instructions) for additional information. Additional Copies To Wanda Quintero
[2016-10-02 12:29] VITALS: BP 168/78; PULSE 91; TEMP 36.7; O2SAT 94
[2017-01-20] MEDS ORDERED: CYCL10TA6 PO (11:27)
[2017-02-19] MEDS ORDERED: PREG1CAP70 PO (13:07)
[2017-04-23] MEDS ORDERED: CHOL2000 PO (10:01)
[2017-04-23] MEDS ORDERED: PREG200C PO (10:01)
[2017-04-23] MEDS ORDERED: ERGO500037 PO (10:01)
[2017-04-23] MEDS ORDERED: CYM/30 PO (10:01)
[2017-04-23] MEDS ORDERED: AMIT25TA9 PO (10:01)
[2017-04-23] MEDS ORDERED: FERR1TAB13 PO (10:01)
[2017-04-23] MEDS ORDERED: voltaren gel TOP (10:01)
[2017-04-23] MEDS ORDERED: CYNI1000 IM (10:01)
== END 2016-10-02 13:16 | disposition home or self-care (01) ==
LOC: ENRESERVTM → ENRESERVDT → C.EDB 17:03 → C.EDINP 21:07 → C.MED 10-01 15:20
PROVIDERS: ADMIT Hospitalist; ATTEND Hospitalist
DX: R07.89 Other chest pain (principal); R00.2 Palpitations; M51.36 Other intervertebral disc degeneration, lumbar region; K21.9 Gastro-esophageal reflux disease without esophagitis; E53.8 Deficiency of other specified B group vitamins; Z82.49 Family history of ischemic heart disease and other diseases of the circulatory system; Z83.3 Family history of diabetes mellitus

== ENCOUNTER → 2017-02-19 | Day surgery (SDC) | payer OTHER ==
[2017-01-20 11:27] VITALS: Ht 167.6 cm; Wt 97.3 kg
[~2017-02-19] VITALS: Ht 167.6 cm; Wt 97.3 kg
[~2017-02-19] MED LIST changes: +AMIT25TA9 PO; -CHOL1CAP95 PO; +CHOL2000 PO; +CYCL10TA6 PO; +CYM/30 PO; +CYNI1000 IM; +ERGO500037 PO; +FERR1TAB13 PO; +GABA1CAP5 PO; -GABA600T PO; +IOPAMIDOL INJ 61% 15 ML VIAL ONE; +LIDOCAINE HCL 1% MPF 5 ML VIAL ONE; -MULT1CHW39 PO; -PANT20TA PO; +PANT40TA PO; +PREG1CAP70 PO; +PREG200C PO; +SODIUM CHLORIDE 0.9% INJ 10 ML VIAL ONE; -TYLOTC500 PO; -VITAMIN B12 LIQUID PO; +voltaren gel TOP
[2017-02-19 13:07] VITALS: TEMP 36.9
--- NOTE | 2017-02-19 13:59 | History & Physical Bridge - [place] ---
H&P Re-Evaluation Bridge Note: I have examined the patient, reviewed the History & Physical and in the interval since the performance of the History & Physical I have noted the following changes of clinical significance: No changes noted
--- NOTE | 2017-02-19 14:23 | Discharge Instructions ---
Discharge Instructions Date of Service Feb 19, 2017. Visit Reason for Visit: Lumbar Radiculopathy Discharge Discharge Diagnosis / Problem: leg pain Discharge Goals Goal(s): Decrease discomfort, Improve function Activity Recommendations Activity Limitations: resume your previous activity Anesthesia . Post Anesthesia Instructions: If you have had General Anesthesia or IV Sedation: * Do not drive today. * Resume driving when surgeon permits. * Do not make important decisions or sign legal documents today. * Call surgeon for: 1. Temperature elevations greater than 101 degrees F. 2. Uncontrollable pain. 3. Excessive bleeding. 4. Persistent nausea and vomiting. 5. Medication intolerance (nausea, vomiting or rash). * For nausea and vomiting use only clear liquids such as: tea, soda, bouillon until nausea subsides, then gradually increase diet as tolerated. * If you have any concerns or questions, call your surgeon's office. If physician is unavailable and it is an emergency, call 911 or go to the nearest emergency room. . Diet Recommendations Recommended Home Diet: resume previous diet Procedures Procedures Performed: Lumbar Epidural Steroid Injection. Pending Studies Studies pending at discharge: no Medical Emergencies . Who to Call and When: Medical Emergencies: If at any time you feel your situation is an emergency, please call 911 immediately. . Non-Emergent Contact Non-Emergency issues call your: Specialist . . "Provider Documentation" section prepared by Manuel Cox. .
[2017-02-19 14:30] VITALS: BP 98/66; PULSE 66; O2SAT 99
--- NOTE | 2017-02-19 16:20 | [facility] Operative Report ---
Operative Report Date of Service Feb 19, 2017. Operative Report DICTATED BY: Manuel Cox M.D. DATE OF SURGERY: 02/19/17. DATE OF OPERATION: 02/19/2017. PREOPERATIVE DIAGNOSIS: L5-S1 disc disease with a right L5 radiculopathy. POSTOPERATIVE DIAGNOSIS: Same. PROCEDURE: Right L5-S1 paramedian intralaminar epidural steroid injection under fluoroscopic guidance. INDICATIONS: The patient is a 46-year-old white female who presents today for an epidural injection to decrease discomfort and improve function as she has failed conservative physical therapy and medications. She has classic pain radiating down the L5 dermatomal distribution of her right leg. CONSENT: Verbal and written consent was obtained from the patient. Risks and benefits were reviewed. Risks include but are not limited to epidural hematoma, allergic reaction, and dural puncture. The patient wishes to proceed. PROCEDURE: The patient was taken back to the special procedures room of [facility] where she was maintained in a prone position. Backside was cleansed with Betadine x3 and a dry sterile dressing was applied. Fluoroscope was used to identify the L5-S1 intralaminar space and overlying skin was anesthetized with 4 mL of lidocaine 1% with a 25 gauge 1.5-inch needle. A 22-gauge 3-1/2 inch Tuohy needle was then directed down towards the intralaminar space and was advanced under lateral fluoroscopic guidance and loss of resistance was noted and Isovue-300 contrast 1 mL was injected in which demonstrated epidural uptake pattern with spread that was confirmed with both AP and lateral views. She then underwent injection after negative aspiration of 40 mg of Depo-Medrol and 4 mL of preservative free sodium chloride. Injection was well tolerated. DISPOSITION: 1. The patient is taken out into the discharge recovery area where she will be discharged home once discharge criteria have been met. 2. Follow up in the [facility] office in 2-4 weeks. I attest to the content of the Intraoperative Record and any orders documented therein. Any exceptions are noted below. I attest to the content of the Intraoperative Record and any orders documented therein. Any exceptions are noted below.
== END | disposition home or self-care (01) ==
LOC: X.SURG 12:57
PROVIDERS: ATTEND Physical Medicine & Rehabilitation
DX: M51.17 Intervertebral disc disorders with radiculopathy, lumbosacral region (principal)

== ENCOUNTER → 2017-03-25 | Outpatient (CLI) | payer OTHER ==
[~2017-03-25] MED LIST changes: -IOPAMIDOL INJ 61% 15 ML VIAL ONE; -LIDOCAINE HCL 1% MPF 5 ML VIAL ONE; -SODIUM CHLORIDE 0.9% INJ 10 ML VIAL ONE
== END | disposition home or self-care (01) ==
LOC: C.RDSM 11:10
PROVIDERS: ATTEND Physical Medicine & Rehabilitation Sports Medicine
DX: M25.561 Pain in right knee (principal); M25.562 Pain in left knee

== ENCOUNTER → 2017-04-01 | Outpatient (CLI) | payer OTHER ==
--- NOTE | 2017-04-01 11:06 | DIAGNOSTIC IMAGING REPORT ---
RIGHT ELBOW MIN 3 VIEWS ROUTINE CLINICAL HISTORY: 46 years-old Female presenting with chronic elbow pain. TECHNIQUE: Frontal, oblique, and lateral views of the right elbow were obtained. COMPARISON: None. FINDINGS: No acute fracture or malalignment. No gross evidence of an elbow joint effusion. No significant degenerative change. Regional soft tissues normal. IMPRESSION: No acute osseous injury of the right elbow. Electronically signed by: Garland Rajan M.D. 04/01/2017 11:05 AM Dictated Date/Time: 04/01/2017 11:04 AM
--- NOTE | 2017-04-01 11:09 | DIAGNOSTIC IMAGING REPORT ---
LEFT ELBOW MIN 3 VIEWS ROUTINE HISTORY: 46 years-old Female M25.529 Elbow pain, chronic bilateral COMPARISON: None available TECHNIQUE: 3 views of the left elbow. FINDINGS: No acute fracture or dislocation is identified. The radial head appears intact. There is minimal spurring of the lateral epicondyle about the distal humerus at the expected site of the common extensor tendon. Bone mineralization is within normal limits. No large joint effusion or radiopaque foreign body. IMPRESSION: 1. No acute bony abnormality. 2. Minimal spurring of the lateral condyle at the expected location of the common extensor tendon. The above report was generated using voice recognition software. It may contain grammatical, syntax or spelling errors. Electronically signed by: Norman Pham M.D. 04/01/2017 11:08 AM Dictated Date/Time: 04/01/2017 11:06 AM
[2017-04-01 12:23] LABS: CALCIUM 9.1 mg/dl (8.5-10.1)
[2017-04-01 12:29] LABS: RHEUMATOID FACTOR < 10.0 U/mL (0-15); TOTAL IRON BINDING CAPACITY 407 mcg/dl (250-450)
[2017-04-05 06:39] LABS: ANTI-CENTROMERE AB <1.0 NEG AI (<1.0 NEG); ANTI-SS-A <1.0 NEG AI (<1.0 NEG); ANTI-SS-B <1.0 NEG AI (<1.0 NEG); DNA ds CRITHIDIA NEGATIVE (NEGATIVE); Sm Antibody <1.0 NEG AI (<1.0 NEG)
== END | disposition home or self-care (01) ==
LOC: C.LAB1850 10:05
PROVIDERS: ATTEND Internal Medicine Rheumatology
DX: M25.529 Pain in unspecified elbow (principal); Z98.84 Bariatric surgery status; R76.8 Other specified abnormal immunological findings in serum; E55.9 Vitamin D deficiency, unspecified

== ENCOUNTER → 2017-04-02 | Outpatient (CLI) | payer OTHER ==
--- NOTE | 2017-04-02 12:17 | DIAGNOSTIC IMAGING REPORT ---
LUMBAR SPINE W/O CONTRAST CLINICAL HISTORY: 46 years-old Female presenting with FOOT DROP, RIGHT, RADICULOPATHY, leg spasms, more left-sided back pain for 4 years, no trauma or surgery. TECHNIQUE: Multisequence, multiplanar MR imaging of the lumbar spine was performed without the use of intravenous contrast. IV contrast: None. COMPARISON: Plain radiographs of the lumbar spine from 05/07/2016. FINDINGS: Localizer images: Unremarkable. Straightening of normal lumbar lordosis. T2 hyperintense, T1 hypointense bone marrow signal intensity noted eccentrically along the left anterior aspect at the L3-4 endplates consistent with edema (Modic type I). T2 hypointense, T1 hypointense bone marrow signal intensity noted eccentrically along the right anterior endplates of L4-5 consistent with sclerosis (Modic type III). Remainder of vertebral bodies to ensure normal height, alignment, and bone marrow signal intensity. Intervertebral disc desiccation at L3-4 and to a lesser extent at L4-5 noted. Multilevel degenerative changes detailed below: L1-2: Normal. L2-3: Facet arthropathy without evidence of neural foraminal or spinal canal narrowing. L3-4: Disc bulge with left neural foraminal narrowing results in minimal effacement of the ventral thecal sac. No significant spinal canal or neural foraminal narrowing. L4-5: Disc bulge with right greater than left facet arthropathy result in mild to moderate right neural foraminal narrowing. No significant spinal canal narrowing. L5-S1: Mild facet arthropathy. No significant spinal canal or neural foraminal narrowing. Spinal cord ends in good position at the superior endplate of L1. Cauda equina normal. Minimal edema noted in the right paraspinal musculature at the level of L5. Minimal superficial edema noted in the subcutaneous tissue of the lower back. No paraspinal fluid collection. No epidural collection. Remaining soft tissues within normal limits. IMPRESSION: 1. Multilevel degenerative changes most severe at L4-5, where there is mild to moderate right neural foraminal narrowing. No significant spinal canal narrowing. 2. Mild edema in the right paraspinal musculature at the L5 level, most consistent with muscle strain. Electronically signed by: Garland Rajan M.D. 04/02/2017 12:16 PM Dictated Date/Time: 04/02/2017 12:10 PM
== END | disposition home or self-care (01) ==
LOC: C.MRIBC 11:00
PROVIDERS: ATTEND Physical Medicine & Rehabilitation
DX: M21.371 Foot drop, right foot (principal); M54.16 Radiculopathy, lumbar region

== ENCOUNTER → 2017-04-08 | Outpatient (CLI) | payer OTHER ==
--- NOTE | 2017-04-08 15:16 | DIAGNOSTIC IMAGING REPORT ---
BONE SCAN WHOLE BODY HISTORY: 46 years-old Female Z98.84 Status post gastric bypass for [id number] Elbow pain, COMPARISON: Right elbow radiographs 04/01/2017. TECHNIQUE: Whole body bone scan was obtained utilizing 25.8 mCi technetium 99 MDP. Scan was obtained 3 hours post injection. Injection was done within the left antecubital fossa. FINDINGS: Residual radiotracer activity is seen within the region of the left antecubital fossa at the injection site. Physiologic radiotracer activity is seen within the kidneys, renal collecting systems and urinary bladder. Mild likely degenerative related uptake is seen about the knees and shoulders. Mildly increased radiotracer activity seen about the facet joints of the lower lumbar spine, likely degenerative related. No abnormal radiotracer uptake is otherwise seen focally within the axial or appendicular skeletal system. No focal abnormal radiotracer uptake is seen about the right elbow. IMPRESSION: 1. No focal abnormally increased radiotracer activity is seen involving the right elbow. 2. Minimal likely degenerative related uptake is seen about the hips, shoulders and lower lumbar spine. The above report was generated using voice recognition software. It may contain grammatical, syntax or spelling errors. Electronically signed by: Norman Pham M.D. 04/08/2017 3:14 PM Dictated Date/Time: 04/08/2017 2:56 PM
== END | disposition home or self-care (01) ==
LOC: C.NUCL 11:00
PROVIDERS: ATTEND Internal Medicine Rheumatology
DX: E55.9 Vitamin D deficiency, unspecified (principal); M25.529 Pain in unspecified elbow; R76.8 Other specified abnormal immunological findings in serum; Z98.84 Bariatric surgery status

== ENCOUNTER → 2017-07-14 | Outpatient (CLI) | payer OTHER ==
[~2017-07-14] MED LIST changes: -PREG1CAP70 PO
== END | disposition home or self-care (01) ==
LOC: C.RDSM 12:00
PROVIDERS: ATTEND Physical Medicine & Rehabilitation Sports Medicine
DX: M25.511 Pain in right shoulder (principal)

== ENCOUNTER → 2017-08-29 | Outpatient (CLI) | payer OTHER | END | disposition home or self-care (01) | LOC: C.RADBC 10:33 | DX: M54.16 Radiculopathy, lumbar region (principal) ==

== ENCOUNTER 2017-09-15 06:30 | Emergency (ER) | payer OTHER ==
[~2017-09-15] VITALS: Ht 167.6 cm; Wt 99.9 kg
[~2017-09-15 06:30] MED LIST changes: -GABA1CAP5 PO
[2017-09-15 06:39] VITALS: TEMP 36.8; Ht 167.6 cm; Wt 99.9 kg
[2017-09-15] MEDS ORDERED: ONDANSETRON INJ 2 MG/ML 2 ML VIAL IV STA (07:06)
[2017-09-15] MEDS ORDERED: SODIUM CHLORIDE 0.9% 1000ML 1,000 ML IV STA (07:06)
[2017-09-15] MEDS ORDERED: DICL1GEL12 TOP (07:31)
--- NOTE | 2017-09-15 08:06 | DIAGNOSTIC IMAGING REPORT ---
PA CHEST WITH ABDOMINAL SERIES CLINICAL HISTORY: Epigastric abdominal pain. Nausea and vomiting. FINDINGS: A PA chest radiograph is compared to study dated 09/30/2016. The cardiomediastinal silhouette is unremarkable. The lungs and pleural spaces are clear. No pneumothorax is seen. The bony thorax is grossly intact. Degenerative change is noted in the thoracic spine. Supine and erect abdominal radiographs are obtained. Correlation is made with lumbar spine radiographs dated 05/07/2016. Surgical clips and suture material are present throughout the upper abdomen. There is a nonobstructed abdominal bowel gas pattern. Mild colonic fecal retention is observed. No evidence of intraperitoneal free air is seen. A 3 mm calcification projects below the right transverse process of L2. This has been present dating back to 2015 and likely represents a phlebolith. No additional abnormal calcifications are identified. The lumbosacral spine and bony pelvis appear intact. IMPRESSION: 1. No active disease in the chest. 2. Nonobstructed abdominal bowel gas pattern. Electronically signed by: Godwin Zepeda M.D. 09/15/2017 8:05 AM Dictated Date/Time: 09/15/2017 7:59 AM
[2017-09-15 08:20] LABS: ALBUMIN 3.2 gm/dl (3.4-5.0); CALCIUM 8.5 mg/dl (8.5-10.1); CREATININE 0.73 mg/dl (0.60-1.20); POTASSIUM 3.8 mmol/L (3.5-5.1)
[2017-09-15 08:23] LABS: TOTAL PROTEIN 7.1 gm/dl (6.4-8.2)
[2017-09-15 08:27] LABS: HEMATOCRIT 36.6 % (37-47); HEMOGLOBIN 12.4 g/dL (12.0-16.0); MEAN CELL VOLUME 88.6 fL (80-100); MEAN CORPUSCULAR HGB CONC 33.9 g/dl (32-36); MEAN PLATELET VOLUME 9.8 fL (7.4-10.4); PLATELET COUNT 179 K/uL (130-400); RED CELL DISTRIBUTION WIDTH CV 13.6 % (11.5-14.5); RED CELL DISTRIBUTION WIDTH SD 43.8 fL (36.4-46.3); WHITE BLOOD COUNT 2.89 K/uL (4.8-10.8)
[2017-09-15 08:34] LABS: INFLUENZA B ANTIGEN Neg for Influ B (NEG)
[2017-09-15] MEDS ORDERED: ONDA4TAB10 SL (09:47)
[2017-09-15 09:48] LABS: BASO % 0.7 %; BASO ABS # 0.02 K/uL (0-0.2); EOS % 0.7 %; EOS ABS # 0.02 K/uL (0-0.5); IG# 0.01 K/uL (0.00-0.02); LYMPH % 51.6 %; LYMPH ABS # 1.49 K/uL (1.2-3.4); MONO % 9.7 %; MONO ABS # 0.28 K/uL (0.11-0.59); NEUT ABS # 1.07 K/uL (1.4-6.5)
--- NOTE | 2017-09-15 09:48 | EMERGENCY ROOM VISIT NOTE ---
History First contact with patient: 06:56 Chief Complaint: ABDOMINAL PAIN Stated Complaint: NAUSEA,HEADACHE,COUGH Nursing Triage Summary: dx with flu last week. pt taking Tamiflu. c/o severe abdominal pain, nausea and vomiting, feels worse. child and spouse both +strep. pt also having sore throat. no fevers. History of Present Illness The patient is a 47 year old female who presents to the Emergency Room with complaints of epigastric pain, nausea since she started taking the Tamiflu last Friday. The patient states that she went to a [facility] outpatient clinic and was diagnosed with influenza although they did not do a swab. She was placed on Tamiflu. The patient states at that time she was very achy all over sensitive to light and felt feverish. Patient states that some of the symptoms have improved but she still has a frontal headache and feels very weak. She denies any recent fevers. She denies any cough. The patient does admit to nausea and vomiting. She has not had a normal bowel movement in 3 days. The patient denies any urinary symptoms of frequency, urgency, dysuria or hematuria. The patient states that she is not drinking due to the nausea and vomiting. The patient states that she took the Tamiflu yesterday but not today. She states that her daughter looked up Tamiflu side effects on the Internet and she has all of them. The patient had a gastric bypass in the past. Review of Systems 10 system review was performed and was negative unless stated otherwise history of present illness. Past Medical/Surgical History Medical Problems: (1) Chest pain radiating to arm (2) Palpitations (3) Right foot drop , Cholecystectomy Gastric bypass Family History Patient reports no known family medical history. Social History Smoking Status: Never Smoker Drug Use: none Marital Status: single Housing Status: unknown Occupation Status: unemployed Current/Historical Medications Scheduled Amitriptyline Hcl (Elavil), 25 MG PO HS Cholecalciferol (Vitamin D3), 2,000 MG PO DAILY Cyanocobalamin (Cyanocobalamin), 1,000 MCG IM Q4WK Ergocalciferol (Vitamin D 01950 Unit), 1 CAP PO Q2WK Ferrous Sulfate (Kp Ferrous Sulfate), 325 MG PO DAILY Pantoprazole (Protonix), 40 MG PO QAM Pregabalin (Lyrica), 200 MG PO QAM Scheduled PRN Diclofenac Sodium (Topical) (Voltaren 1% Top Gel), 1 APPLN TOP QID PRN for Pain Tramadol (Ultram), 50 MG PO QAM PRN for Pain Physical Exam Vital Signs Date Time Temp Pulse Resp B/P (MAP) Pulse Ox O2 Delivery O2 Flow Rate FiO2 09/15/17 08:28 76 122/76 09/15/17 06:39 36.8 75 18 126/80 98 Room Air Physical Exam PHYSICAL EXAM: Vital Signs were reviewed: Reviewed Nurse's notes and agree.. GENERAL: 47-year-old female appears in no acute distress. MENTAL STATUS: Alert, oriented, coherent. EARS: Canals clear. TMs good light reflex, no erythema or fluid level noted. NOSE: Nasal mucosa with moderate erythema engorgement. PHARYNX: Minimal erythema, no edema noted. No exudate noted. Airway is adequate. NECK: Supple, non-tender. No lymphadenopathy noted. LUNGS: Clear to auscultation without wheezes rales or rhonchi. CARDIAC: Regular rate and rhythm without murmur. ABDOMEN: Soft, positive bowel sounds all 4 quadrants. Tenderness palpation in the epigastric region otherwise nontender without organomegaly or masses. SKIN: No rashes noted. Medical Decision & Procedures ER Provider Diagnostic Interpretation: PA CHEST WITH ABDOMINAL SERIES CLINICAL HISTORY: Epigastric abdominal pain. Nausea and vomiting. FINDINGS: A PA chest radiograph is compared to study dated 09/30/2016. The cardiomediastinal silhouette is unremarkable. The lungs and pleural spaces are clear. No pneumothorax is seen. The bony thorax is grossly intact. Degenerative change is noted in the thoracic spine. Supine and erect abdominal radiographs are obtained. Correlation is made with lumbar spine radiographs dated 05/07/2016. Surgical clips and suture material are present throughout the upper abdomen. There is a nonobstructed abdominal bowel gas pattern. Mild colonic fecal retention is observed. No evidence of intraperitoneal free air is seen. A 3 mm calcification projects below the right transverse process of L2. This has been present dating back to 2015 and likely represents a phlebolith. No additional abnormal calcifications are identified. The lumbosacral spine and bony pelvis appear intact. IMPRESSION: 1. No active disease in the chest. 2. Nonobstructed abdominal bowel gas pattern. Electronically signed by: Godwin Zepeda M.D. 09/15/2017 8:05 AM Laboratory Results 09/15/17 07:45 Red Blood Count 4.13, Mean Corpuscular Volume 88.6, Mean Corpuscular Hemoglobin 30.0, Mean Corpuscular Hemoglobin Concent 33.9, Mean Platelet Volume 9.8 09/15/17 07:45 Test 09/15/17 07:30 09/15/17 07:45 Influenza Type A Antigen Neg for Influ A (NEG) Influenza Type B Antigen Neg for Influ B (NEG) White Blood Count 2.89 K/uL (4.8-10.8) Red Blood Count 4.13 M/uL (4.2-5.4) Hemoglobin 12.4 g/dL (12.0-16.0) Hematocrit 36.6 % (37-47) Mean Corpuscular Volume 88.6 fL (80-100) Mean Corpuscular Hemoglobin 30.0 pg (25-34) Mean Corpuscular Hemoglobin Concent 33.9 g/dl (32-36) Platelet Count 179 K/uL (130-400) Mean Platelet Volume 9.8 fL (7.4-10.4) RDW Standard Deviation 43.8 fL (36.4-46.3) RDW Coefficient of Variation 13.6 % (11.5-14.5) Anion Gap 8.0 mmol/L (3-11) Est Creatinine Clear Calc Drug Dose 112.4 ml/min Estimated GFR () 112.9 Estimated GFR (Non- 97.4 BUN/Creatinine Ratio 13.3 (10-20) Calcium Level 8.5 mg/dl (8.5-10.1) Total Bilirubin 0.4 mg/dl (0.2-1) Direct Bilirubin 0.1 mg/dl (0-0.2) Aspartate Amino Transf (AST/SGOT) 24 U/L (15-37) Alanine Aminotransferase (ALT/SGPT) 22 U/L (12-78) Alkaline Phosphatase 49 U/L (45-117) Total Protein 7.1 gm/dl (6.4-8.2) Albumin 3.2 gm/dl (3.4-5.0) Lipase 354 U/L (73-393) Medications Administered Medications (Trade) Dose Ordered Sig/Monster Route Start Time Stop Time Status Last Admin Dose Admin Sodium Chloride 1,000 ml @ 999 mls/hr Q1H1M STAT IV 09/15/17 07:06 09/15/17 08:06 DC 09/15/17 08:30 999 MLS/HR Ondansetron HCl (Zofran Inj) 4 mg NOW STAT IV 09/15/17 07:06 09/15/17 07:08 DC 09/15/17 08:30 4 MG ED Course The patient was evaluated. The patient's EMR medication list were reviewed. IV access was obtained. The patient was given 1 L normal saline wide-open. She was given Zofran 4 mg IV push for nausea. CBC and differential, renal profile, LFTs and lipase levels were ordered. Rapid strep was negative. Culture is pending. Influenza was negative for influenza A and influenza B. Abdominal series x-ray with PA chest was ordered and interpreted by the radiologist as above without any acute findings. The patient was reevaluated was feeling better. The patient was discharged home in stable condition. Medical Decision Differential diagnosis include side effects from Tamiflu, influenza, small bowel obstruction [place] Drug Monitoring Program Search Results: patient reviewed within database Medication Reconcilliation Current Medication List: was personally reviewed by [place] Blood Pressure Screening Patient's blood pressure: Normal blood pressure Impression Primary Impression: Abdominal pain Additional Impressions: Sore throat Influenza-like symptoms Departure Information Dispostion Home / Self-Care Condition GOOD Prescriptions Ondasetron Odt (ZOFRAN ODT) 4 Mg Tab 4 MG SL Q6H for Nausea, #10 TAB Prov: Alis Rodriguez PA-C 09/15/17 Referrals Wanda Quintero (PCP) Forms Call Back Authorization, HOME CARE DOCUMENTATION FORM, IMPORTANT VISIT INFORMATION Patient Instructions ED Nausea Vomiting, [facility] Additional Instructions Push fluids, rest. Tylenol and/or ibuprofen as needed for fever and body aches. Take Zofran as needed for nausea. Follow bland diet. Advance diet slowly as tolerated. If symptoms persist or worsen, follow-up with your family doctor for recheck. Problem Qualifiers Primary Impression: Abdominal pain Abdominal location: epigastric Qualified Codes: R10.13 - Epigastric pain
[2017-09-15 10:12] VITALS: BP 135/70; PULSE 79; O2SAT 99
== END 2017-09-15 10:13 | disposition home or self-care (01) ==
LOC: C.EDB 06:33
DX: J11.2 Influenza due to unidentified influenza virus with gastrointestinal manifestations (principal); Z90.49 Acquired absence of other specified parts of digestive tract; Z98.84 Bariatric surgery status; Z79.899 Other long term (current) drug therapy

== ENCOUNTER 2017-10-08 18:56 | Emergency (ER) | payer OTHER ==
[~2017-10-08] VITALS: Ht 167.6 cm; Wt 101.1 kg
[~2017-10-08 18:56] MED LIST changes: -CYCL10TA6 PO; -CYM/30 PO; +DICL1GEL12 TOP; +ONDA4TAB10 SL; -voltaren gel TOP
[2017-10-08 19:01] VITALS: Ht 167.6 cm; Wt 101.1 kg
[2017-10-08 20:11] LABS: BASO % 0.1 %; BASO ABS # 0.01 K/uL (0-0.2); EOS ABS # 0.07 K/uL (0-0.5); HEMATOCRIT 37.4 % (37-47); HEMOGLOBIN 12.4 g/dL (12.0-16.0); IG# 0.02 K/uL (0.00-0.02); LYMPH % 19.5 %; LYMPH ABS # 1.38 K/uL (1.2-3.4); MEAN CORPUSCULAR HEMOGLOBIN 30.2 pg (25-34); MEAN CORPUSCULAR HGB CONC 33.2 g/dl (32-36); MEAN PLATELET VOLUME 10.4 fL (7.4-10.4); MONO % 6.2 %; MONO ABS # 0.44 K/uL (0.11-0.59); NEUT % 72.9 %; NEUT ABS # 5.15 K/uL (1.4-6.5); PLATELET COUNT 174 K/uL (130-400); RED CELL DISTRIBUTION WIDTH CV 14.2 % (11.5-14.5); RED CELL DISTRIBUTION WIDTH SD 47.4 fL (36.4-46.3); WHITE BLOOD COUNT 7.07 K/uL (4.8-10.8)
[2017-10-08 20:27] LABS: CALCIUM 8.2 mg/dl (8.5-10.1); CREATININE 0.78 mg/dl (0.60-1.20); POTASSIUM 3.6 mmol/L (3.5-5.1)
--- NOTE | 2017-10-08 21:32 | EMERGENCY ROOM VISIT NOTE ---
History First contact with patient: 19:18 Chief Complaint: HYPOGLYCEMIA Stated Complaint: AGITATED, SWEATY, DIZZY, WEIRD Nursing Triage Summary: c/o dizziness [employer] History of Present Illness The patient is a 47 year old female who presents to the Emergency Room with complaints of feeling dizzy and lightheaded prior to arrival. The patient reports that she was driving and began to feel sweaty and dizzy. She states that her feet felt very heavy and her vision began to narrow. She states that her heart began to pound very fast and she felt slightly anxious. She tried to take a sip of her diet ice tea but states that this did not help her symptoms. She states that she had a similar episode last week which resolved after drinking some soda. She had a gastric bypass 7 years ago and eats very small meals of healthy foods. She states that she last ate approximately 4 hours ago. At that time she had a small meal of rice and chicken breast. She is not a diabetic. She denies chest pain or syncopal episodes. Review of Systems A complete 10 point review of systems was reviewed with the patient with pertinent positives and negatives as per history of present illness. All else were negative. Past Medical/Surgical History Medical Problems: (1) Chest pain radiating to arm (2) Palpitations (3) Right foot drop Family History Patient reports no known family medical history. Social History Smoking Status: Never Smoker Drug Use: none Marital Status: single Housing Status: unknown Occupation Status: unemployed Current/Historical Medications Scheduled Amitriptyline Hcl (Elavil), 25 MG PO HS Cholecalciferol (Vitamin D3), 2,000 MG PO DAILY Cyanocobalamin (Cyanocobalamin), 1,000 MCG IM Q4WK Ergocalciferol (Vitamin D 87917 Unit), 1 CAP PO Q2WK Ferrous Sulfate (Kp Ferrous Sulfate), 325 MG PO DAILY Ondasetron Odt (Zofran Odt), 4 MG SL Q6H Pantoprazole (Protonix), 40 MG PO QAM Pregabalin (Lyrica), 200 MG PO QAM Scheduled PRN Diclofenac Sodium (Topical) (Voltaren 1% Top Gel), 1 APPLN TOP QID PRN for Pain Tramadol (Ultram), 50 MG PO QAM PRN for Pain Physical Exam Vital Signs Date Time Temp Pulse Resp B/P (MAP) Pulse Ox O2 Delivery O2 Flow Rate FiO2 10/08/17 21:44 36.5 71 20 116/66 100 10/08/17 21:12 20 110/68 97 Room Air 10/08/17 19:01 36.5 89 17 111/73 99 Room Air Physical Exam VITALS: Vitals are noted on the nurse's note and reviewed by myself. Vital signs stable. GENERAL: This is a 47-year-old female, in no acute distress, nondiaphoretic, well-developed well-nourished. SKIN: The skin was without rashes. HEAD: Normocephalic atraumatic. EARS: External auditory canals clear, tympanic membranes pearly sherwood without erythema or effusion bilaterally. EYES: Pupils equal round and reactive to light and accommodation. Extraocular movements intact. MOUTH: Mucous membranes moist. NECK: Supple without nuchal rigidity. No lymphadenopathy. HEART: Regular rate and rhythm without murmurs gallops or rubs. LUNGS: Clear to auscultation bilaterally without wheezes, rales or rhonchi. No retractions or accessory muscle use. ABDOMEN: Positive bowel sounds x 4. Soft, nontender to palpation. MUSCULOSKELETAL: Strength 5/5 throughout. NEURO: Patient was alert and oriented to person place and time. No focal neurological deficits. Medical Decision & Procedures Laboratory Results 10/08/17 20:00 Red Blood Count 4.11, Mean Corpuscular Volume 91.0, Mean Corpuscular Hemoglobin 30.2, Mean Corpuscular Hemoglobin Concent 33.2, Mean Platelet Volume 10.4, Neutrophils (%) (Auto) 72.9, Lymphocytes (%) (Auto) 19.5, Monocytes (%) (Auto) 6.2, Eosinophils (%) (Auto) 1.0, Basophils (%) (Auto) 0.1, Neutrophils # (Auto) 5.15, Lymphocytes # (Auto) 1.38, Monocytes # (Auto) 0.44, Eosinophils # (Auto) 0.07, Basophils # (Auto) 0.01 10/08/17 20:00 Test 10/08/17 19:45 10/08/17 20:00 Bedside Glucose 112 mg/dl (70-90) White Blood Count 7.07 K/uL (4.8-10.8) Red Blood Count 4.11 M/uL (4.2-5.4) Hemoglobin 12.4 g/dL (12.0-16.0) Hematocrit 37.4 % (37-47) Mean Corpuscular Volume 91.0 fL (80-100) Mean Corpuscular Hemoglobin 30.2 pg (25-34) Mean Corpuscular Hemoglobin Concent 33.2 g/dl (32-36) Platelet Count 174 K/uL (130-400) Mean Platelet Volume 10.4 fL (7.4-10.4) Neutrophils (%) (Auto) 72.9 % Lymphocytes (%) (Auto) 19.5 % Monocytes (%) (Auto) 6.2 % Eosinophils (%) (Auto) 1.0 % Basophils (%) (Auto) 0.1 % Neutrophils # (Auto) 5.15 K/uL (1.4-6.5) Lymphocytes # (Auto) 1.38 K/uL (1.2-3.4) Monocytes # (Auto) 0.44 K/uL (0.11-0.59) Eosinophils # (Auto) 0.07 K/uL (0-0.5) Basophils # (Auto) 0.01 K/uL (0-0.2) RDW Standard Deviation 47.4 fL (36.4-46.3) RDW Coefficient of Variation 14.2 % (11.5-14.5) Immature Granulocyte % (Auto) 0.3 % Immature Granulocyte # (Auto) 0.02 K/uL (0.00-0.02) Anion Gap 7.0 mmol/L (3-11) Est Creatinine Clear Calc Drug Dose 105.8 ml/min Estimated GFR () 104.2 Estimated GFR (Non- 89.9 BUN/Creatinine Ratio 12.6 (10-20) Calcium Level 8.2 mg/dl (8.5-10.1) Medical Decision Differential diagnosis includes hypoglycemia, infection, electrolyte abnormality , vertigo, CVA, TIA, dehydration, among others. The patient was evaluated as above. [id number] glucose was performed while the patient was in triage. She was found to have a glucose of 63. She was then given juice and a sandwich and was feeling better by the time of my evaluation. Repeat [id number] glucose was 112. Labs were unremarkable. Patient does have a history of gastric bypass and eats very small, low-carb meals. She has no history of diabetes. The patient was advised to add a few snacks to her diet in between meals. I did advise her to keep some Candy or soda with her in case she has another episode of these symptoms. She will call her primary care provider in the morning to schedule a follow-up appointment. She verbalized understanding of my assessment and treatment plan and was discharged home in good condition. The patient's case was reviewed with Dr. Burk, ED attending physician, who agreed with my assessment and treatment plan. Medication Reconcilliation Current Medication List: was personally reviewed by me Blood Pressure Screening Patient's blood pressure: Normal blood pressure Impression Primary Impression: Hypoglycemia Departure Information Dispostion Home / Self-Care Condition GOOD Referrals Wanda Quintero (PCP) Patient Instructions [facility] Additional Instructions Contact your primary care provider tomorrow to schedule a follow-up appointment. Make sure to eat frequent small meals. You should eat snacks that contain some carbohydrates between your meals. If you start having these symptoms again, you should eat something with sugar in it such as a candy bar, soda, juice or piece of fruit.
[2017-10-08 21:44] VITALS: BP 116/66; PULSE 71; TEMP 36.5; O2SAT 100
== END 2017-10-08 21:45 | disposition home or self-care (01) ==
LOC: C.EDB 18:58 → C.EDC 21:45
DX: E16.2 Hypoglycemia, unspecified (principal)

== ENCOUNTER 2017-10-12 00:31 | Emergency (ER) | payer OTHER ==
[2017-10-12 00:33] VITALS: TEMP 36.9
[2017-10-12 00:46] VITALS: O2SAT 99
[2017-10-12] MEDS ORDERED: ONDANSETRON INJ 2 MG/ML 2 ML VIAL IV STA (01:00)
[2017-10-12] MEDS ORDERED: SODIUM CHLORIDE 0.9% 1000ML 1,000 ML IV STA (01:00)
--- NOTE | 2017-10-12 01:08 | EMERGENCY ROOM VISIT NOTE ---
History Report prepared by Carine: Meagan Edmond Under the Supervision of: Dr. Toni Strange M.D. First contact with patient: 00:53 Chief Complaint: OTHER COMPLAINT Stated Complaint: TROUBLE BREATHING,ANXIETY,ADVERSE RX TO ALC/MEDS History of Present Illness The patient is a 47 year old female who presents to the Emergency Room with complaints of persistent nausea and weakness that started a couple of hours ago. The patient took her normal medications, Lyrica and Tramadol, and then drank 2 ounces of vodka. The patient's daughter states she was unable to hold herself up or swallow water. The patient has been spitting up but has not vomited. She denies any abdominal pain, headache, or chest pain. This HPI is limited secondary to patient non-interaction. Source of History: patient, family History Limited By: poor cooperation Onset: a couple of hours ago Position: other (global) Timing: other (persistent) Associated Symptoms: No headache, No chest pain, No vomiting, No abdominal pain Review of Systems ROS limited due to patient unwilling to answer questions. Past Medical & Surgical Medical Problems: (1) Chest pain radiating to arm (2) Palpitations (3) Right foot drop Family History Patient reports no known family medical history. Social History Smoking Status: Never Smoker Drug Use: none Marital Status: single Housing Status: unknown Occupation Status: unemployed Current/Historical Medications Scheduled Amitriptyline Hcl (Elavil), 25 MG PO HS Cholecalciferol (Vitamin D3), 2,000 MG PO DAILY Cyanocobalamin (Cyanocobalamin), 1,000 MCG IM Q4WK Ergocalciferol (Vitamin D 44552 Unit), 1 CAP PO Q2WK Ferrous Sulfate (Kp Ferrous Sulfate), 325 MG PO DAILY Ondasetron Odt (Zofran Odt), 4 MG SL Q6H Pantoprazole (Protonix), 40 MG PO QAM Pregabalin (Lyrica), 200 MG PO QAM Scheduled PRN Diclofenac Sodium (Topical) (Voltaren 1% Top Gel), 1 APPLN TOP QID PRN for Pain Tramadol (Ultram), 50 MG PO QAM PRN for Pain Allergies Coded Allergies: No Known Allergies (Unverified , 09/15/17) Physical Exam Vital Signs Date Time Temp Pulse Resp B/P (MAP) Pulse Ox O2 Delivery O2 Flow Rate FiO2 10/12/17 02:37 76 16 103/53 97 Room Air 10/12/17 02:15 75 13 103/58 97 Room Air 10/12/17 01:16 75 16 103/72 98 Room Air 10/12/17 00:46 99 Room Air 10/12/17 00:45 74 10/12/17 00:33 36.9 81 24 114/74 98 Room Air Physical Exam GENERAL: Patient is moderately intoxicated. Smells of alcohol. Well appearing and in no acute distress. HEAD: No evidence of Trauma. AT/NC EYES: Won't open eyes. ENT: Mucous membranes moist, no nasal congestion, . NECK: No step-offs, no adenopathy, no meningismus, trachea is midline. LUNGS: No dyspnea. Clear to auscultation and equal bilaterally. No wheeze, no rhonchi. HEART: Regular rate and rhythm. No murmurs, rubs, gallops appreciated. ABDOMEN: Soft, nontender, bowel sounds positive, no masses appreciated, no peritonitis. BACK: No midline tenderness, no CVA tenderness EXTREMITIES: Normal motion all extremities, no cyanosis, no edema. NEUROLOGIC: Intoxicated. Awake, not answering questions due to nausea. No acute motor or sensory deficits, no focal weakness, cranial nerves grossly intact. SKIN: No rash, no jaundice, no diaphoresis. Limited due to patient not willing to speak. Medical Decision & Procedures Laboratory Results 10/12/17 01:15 Red Blood Count 4.11, Mean Corpuscular Volume 89.8, Mean Corpuscular Hemoglobin 30.2, Mean Corpuscular Hemoglobin Concent 33.6, Mean Platelet Volume 10.0, Neutrophils (%) (Auto) 57.5, Lymphocytes (%) (Auto) 33.4, Monocytes (%) (Auto) 7.4, Eosinophils (%) (Auto) 0.9, Basophils (%) (Auto) 0.5, Neutrophils # (Auto) 3.34, Lymphocytes # (Auto) 1.94, Monocytes # (Auto) 0.43, Eosinophils # (Auto) 0.05, Basophils # (Auto) 0.03 10/12/17 01:15 Test 10/12/17 01:15 White Blood Count 5.81 K/uL (4.8-10.8) Red Blood Count 4.11 M/uL (4.2-5.4) Hemoglobin 12.4 g/dL (12.0-16.0) Hematocrit 36.9 % (37-47) Mean Corpuscular Volume 89.8 fL (80-100) Mean Corpuscular Hemoglobin 30.2 pg (25-34) Mean Corpuscular Hemoglobin Concent 33.6 g/dl (32-36) Platelet Count 203 K/uL (130-400) Mean Platelet Volume 10.0 fL (7.4-10.4) Neutrophils (%) (Auto) 57.5 % Lymphocytes (%) (Auto) 33.4 % Monocytes (%) (Auto) 7.4 % Eosinophils (%) (Auto) 0.9 % Basophils (%) (Auto) 0.5 % Neutrophils # (Auto) 3.34 K/uL (1.4-6.5) Lymphocytes # (Auto) 1.94 K/uL (1.2-3.4) Monocytes # (Auto) 0.43 K/uL (0.11-0.59) Eosinophils # (Auto) 0.05 K/uL (0-0.5) Basophils # (Auto) 0.03 K/uL (0-0.2) RDW Standard Deviation 47.8 fL (36.4-46.3) RDW Coefficient of Variation 14.5 % (11.5-14.5) Immature Granulocyte % (Auto) 0.3 % Immature Granulocyte # (Auto) 0.02 K/uL (0.00-0.02) Anion Gap 10.0 mmol/L (3-11) Estimated GFR () 116.7 Estimated GFR (Non- 100.7 BUN/Creatinine Ratio 20.9 (10-20) Calcium Level 8.5 mg/dl (8.5-10.1) Total Bilirubin 0.1 mg/dl (0.2-1) Direct Bilirubin < 0.1 mg/dl (0-0.2) Aspartate Amino Transf (AST/SGOT) 24 U/L (15-37) Alanine Aminotransferase (ALT/SGPT) 26 U/L (12-78) Alkaline Phosphatase 58 U/L (45-117) Total Protein 7.5 gm/dl (6.4-8.2) Albumin 3.5 gm/dl (3.4-5.0) Lipase 342 U/L (73-393) Ethyl Alcohol mg/dL 79.0 mg/dl (0-3) Laboratory results as reviewed by me. Medications Administered Medications (Trade) Dose Ordered Sig/Monster Route Start Time Stop Time Status Last Admin Dose Admin Ondansetron HCl (Zofran Inj) 4 mg NOW STAT IV 10/12/17 01:00 10/12/17 01:01 DC 10/12/17 01:15 4 MG Sodium Chloride 1,000 ml @ 999 mls/hr Q1H1M STAT IV 10/12/17 01:00 10/12/17 02:00 DC 10/12/17 01:15 999 MLS/HR ED Course 0053: The patient was evaluated in room A10. A complete history and physical exam was performed. 0212: I reevaluated the patient and she is somnolent. Her nausea is gone and she denies any pain anywhere. The patient has no other complaints or requests at the moment. 0235: Reevaluated the patient and she is feeling much better. She is awake and answering questions. She states she wants to go home and she feels safe at home. She agrees to avoid mixing alcohol and other medications. 0300: Reevaluated the patient. Discussed results and discharge instructions: She verbalized understanding and agreement. The patient is ready for discharge. Medical Decision Differential: Alcohol Intoxication, Drug Intoxication, Electrolyte Abnormality, Trauma, Intracranial Event, Toxicological, Excited Delirium, Serotonin Syndrome , amongst other pathologies entertained. 47 yr old female arrives with nausea/vomiting, lightheadedness after taking her Lyrica and Tramadol then doing shots of vodka. She has history of gastric bypass and admits she doesn't do well with Tariq's. Initially she was pretty much unwilling to say anthing but once she was feeling better with IV zofran she was much more interactive. She is stable, labs look good and she is in no distress. She is comfortable with discharge and wants to go home. She states she feels safe at home and denies any concerns. We discussed likelihood this is combination of meds/etoh, but also possibility it is either something early or possibly gastroenteritis. She does have Zofran at home. Clear to her and family that can return at any time if worsening or other concerns. I did note that this has been her third visit in last few weeks but she denies any issues other than medical and that things are fine at home. Medication Reconcilliation Current Medication List: was personally reviewed by me Impression Primary Impression: Nausea Scribe Attestation The scribe's documentation has been prepared under my direction and personally reviewed by me in its entirety. I confirm that the note above accurately reflects all work, treatment, procedures, and medical decision making performed by me. Departure Information Dispostion Home / Self-Care Referrals No Doctor, Assigned (PCP) Patient Instructions [facility] Additional Instructions Avoid drinking alcohol with your medications as these can cause significant interactions. Use Zofran as needed for nausea. Eat a light and bland diet over the next 24 hours while keeping well hydrated. Return if pain, fevers, vomiting, passing out or other concerns. We are always here if you feel you need evaluation for any other reason.
[2017-10-12 01:53] LABS: BASO % 0.5 %; BASO ABS # 0.03 K/uL (0-0.2); EOS % 0.9 %; EOS ABS # 0.05 K/uL (0-0.5); HEMATOCRIT 36.9 % (37-47); HEMOGLOBIN 12.4 g/dL (12.0-16.0); IG# 0.02 K/uL (0.00-0.02); LYMPH % 33.4 %; LYMPH ABS # 1.94 K/uL (1.2-3.4); MEAN CELL VOLUME 89.8 fL (80-100); MEAN CORPUSCULAR HEMOGLOBIN 30.2 pg (25-34); MEAN CORPUSCULAR HGB CONC 33.6 g/dl (32-36); MONO % 7.4 %; MONO ABS # 0.43 K/uL (0.11-0.59); NEUT % 57.5 %; NEUT ABS # 3.34 K/uL (1.4-6.5); PLATELET COUNT 203 K/uL (130-400); RED CELL DISTRIBUTION WIDTH CV 14.5 % (11.5-14.5); RED CELL DISTRIBUTION WIDTH SD 47.8 fL (36.4-46.3); WHITE BLOOD COUNT 5.81 K/uL (4.8-10.8)
[2017-10-12 02:13] LABS: ALBUMIN 3.5 gm/dl (3.4-5.0); ALT/SGPT 26 U/L (12-78); AST/SGOT 24 U/L (15-37); BLOOD UREA NITROGEN 15 mg/dl (7-18); CALCIUM 8.5 mg/dl (8.5-10.1); CARBON DIOXIDE 23 mmol/L (21-32); CREATININE 0.71 mg/dl (0.60-1.20); GLUCOSE 86 mg/dl (70-99); LIPASE 342 U/L (73-393); POTASSIUM 3.5 mmol/L (3.5-5.1); SODIUM 137 mmol/L (136-145)
[2017-10-12 02:16] LABS: ALKALINE PHOSPHATASE 58 U/L (45-117); TOTAL PROTEIN 7.5 gm/dl (6.4-8.2)
[2017-10-12 02:37] VITALS: BP 103/53; PULSE 76; O2SAT 97
== END 2017-10-12 02:51 | disposition home or self-care (01) ==
LOC: C.EDB 00:32 → C.EDA 02:51
DX: R11.0 Nausea (principal); R40.0 Somnolence; Z98.84 Bariatric surgery status

== ENCOUNTER 2017-10-15 11:42 | Emergency (ER) | payer OTHER ==
[~2017-10-15] VITALS: Ht 167.6 cm; Wt 101.6 kg
[2017-10-15 11:47] VITALS: TEMP 37.2; Ht 167.6 cm; Wt 101.6 kg
[2017-10-15] MEDS ORDERED: HYDROmorphone INJ 0.5 MG/0.5 ML SYR IV STA (12:13)
[2017-10-15] MEDS ORDERED: ONDANSETRON INJ 2 MG/ML 2 ML VIAL IV STA (12:13)
[2017-10-15 12:52] LABS: BASO % 0.3 %; BASO ABS # 0.02 K/uL (0-0.2); EOS % 0.7 %; EOS ABS # 0.05 K/uL (0-0.5); HEMATOCRIT 35.8 % (37-47); IG# 0.01 K/uL (0.00-0.02); LYMPH % 27.9 %; LYMPH ABS # 1.97 K/uL (1.2-3.4); MEAN CELL VOLUME 89.9 fL (80-100); MEAN CORPUSCULAR HEMOGLOBIN 30.2 pg (25-34); MEAN CORPUSCULAR HGB CONC 33.5 g/dl (32-36); MEAN PLATELET VOLUME 9.8 fL (7.4-10.4); MONO % 9.6 %; MONO ABS # 0.68 K/uL (0.11-0.59); NEUT % 61.4 %; NEUT ABS # 4.32 K/uL (1.4-6.5); PLATELET COUNT 201 K/uL (130-400); RED CELL DISTRIBUTION WIDTH CV 14.6 % (11.5-14.5); RED CELL DISTRIBUTION WIDTH SD 48.5 fL (36.4-46.3); WHITE BLOOD COUNT 7.05 K/uL (4.8-10.8)
[2017-10-15 13:02] LABS: INR 0.9 (0.9-1.1); PTT PATIENT 25.2 SECONDS (21.0-31.0)
[2017-10-15 13:09] LABS: ALBUMIN 3.3 gm/dl (3.4-5.0); CALCIUM 8.3 mg/dl (8.5-10.1); CREATININE 0.83 mg/dl (0.60-1.20); POTASSIUM 4.1 mmol/L (3.5-5.1)
[2017-10-15 13:12] LABS: TOTAL PROTEIN 6.8 gm/dl (6.4-8.2)
--- NOTE | 2017-10-15 13:49 | DIAGNOSTIC IMAGING REPORT ---
LUMBAR SPINE W/O CONTRAST CLINICAL HISTORY: 47 years-old Female presenting with severe saddle pain, urinary incontinence. prior back surgery. TECHNIQUE: Multisequence, multiplanar MR imaging of the lumbar spine was performed without the use of intravenous contrast. IV contrast: None. COMPARISON: 04/02/2017. FINDINGS: Localizer images: Extra hepatic biliary ductal dilatation with the common duct measuring 14 mm in the midportion. Straightening of normal lumbar lordosis. . Bony edema noted at the endplates of L3-4 has significantly slightly decreased since the prior exam. Endplate changes at L4-5 are less severe and are unchanged from prior exam, combination of minimal edema and sclerotic changes. Vertebral bodies maintain normal height and alignment. Remainder bone marrow signal intensity normal. Disc desiccation noted from L3-4 through L5-S1 with disc height loss greatest at L3-4 and L4-5. Annular fissures suggested at L5-S1. L1-2: Normal. L2-3: Facet arthropathy without significant neural foraminal or spinal canal narrowing.. L3-4: Disc bulge with left neural foraminal narrowing does not result in significant spinal canal stenosis. Minimal bilateral neural foraminal narrowing. L4-5: Minimal disc bulge with right greater than left facet arthropathy result in mild to moderate right neural foraminal narrowing. No significant spinal canal narrowing. L5-S1: Minimal disc bulge with annular fissure. No significant spinal canal or neural foraminal narrowing. Spinal cord ends in good position at the superior endplate of L1. Cauda equina normal. Slight interval decrease in intramuscular edema noted in the right paraspinal region at the level of L5. No paraspinal fluid collection. No epidural collection. Remaining soft tissues within normal limits. IMPRESSION: 1. No evidence of cauda equina impingement. No significant spinal canal stenosis. 2. Multilevel degenerative changes with neural foraminal narrowing most significant at L4-5 on the right. 3. Decreased edema in the right paraspinal musculature at the L5 level, consistent with resolving muscle strain. 4. Significant extrahepatic biliary ductal dilatation. This could represent a reservoir effect in the post cholecystectomy state if the patient has had the gallbladder removed, which cannot be confirmed as no prior imaging of the abdomen has been performed. If the patient has not undergone cholecystectomy, further evaluation to be considered. The report will be called/faxed according to standard departmental protocol. Electronically signed by: Garland Rajan M.D. 10/15/2017 1:47 PM Dictated Date/Time: 10/15/2017 1:36 PM
[2017-10-15] MEDS ORDERED: DIAZEPAM INJ 5 MG/ML 2 ML CARP IV STA (14:23)
[2017-10-15] MEDS ORDERED: GI COCKTAIL PO STA (15:21)
[2017-10-15] MEDS ORDERED: LIDOCAINE HCL 2% VISC SOLN 20 ML UDC ONE ×2 (15:33→15:40)
[2017-10-15] MEDS ORDERED: ALUMINUM/MAGNESIUM SUSP 30 ML UDC ONE ×2 (15:33→15:39)
--- NOTE | 2017-10-15 17:24 | DIAGNOSTIC IMAGING REPORT ---
PELVIS WITHOUT CONTRAST (MRI) CLINICAL HISTORY: 47 years-old Female presenting with sacroiliac joint pain, history of injections. TECHNIQUE: Multisequence, multiplanar MR imaging of the pelvis was performed without the use of intravenous contrast. IV contrast: None. COMPARISON: None. FINDINGS: Localizer images: Unremarkable. Normal bone marrow signal intensity. No fluid in the sacroiliac joints. Normal appearance of the sacral ala and neural foramina. No muscular edema. No superficial soft tissue infiltration. Limited intrapelvic evaluation within normal limits. IMPRESSION: Normal MR examination of the sacroiliac joints. Electronically signed by: Garland Rajan M.D. 10/15/2017 5:22 PM Dictated Date/Time: 10/15/2017 5:15 PM
[2017-10-15] MEDS ORDERED: FENTANYL CITRATE INJ 50 MCG/1 ML 2 ML VIAL IV STA (17:30)
[2017-10-15] MEDS ORDERED: NORCO 5/325MG HOME PACK PO ONE (17:30)
[2017-10-15] MEDS ORDERED: LORAZEPAM 2 MG/ML 1 ML VIAL IV STA (17:55)
[2017-10-15] MEDS ORDERED: KETOROLAC TROMETHAMINE 30 MG/ML VIAL IV STA (18:10)
[2017-10-15 18:39] VITALS: BP 119/66; PULSE 70; O2SAT 97
--- NOTE | 2017-10-15 19:40 | EMERGENCY ROOM VISIT NOTE ---
History Report prepared by Carine: Daphne Gonzalez Under the Supervision of: Dr. Ozzie Chacko M.D. First contact with patient: 12:05 Chief Complaint: GROIN PAIN Stated Complaint: GROIN PAIN History of Present Illness The patient is a 47 year old female who presents to the Emergency Room brought in by EMS with complaints of persistent left knee pain radiating to her groin since two hours ago. She describes the pain as cramping and sore. She notes movement worsens the pain. She reports a history of back surgery in the L4-L5 region July 2012. She reports a history of right drop foot. She reports receiving at least three series of injections by Dr. Nguyen, pain management. Her last steroid/numbing injection was October 09, 2017 in the sacroiliac joint due to sacroiliitis and lumbago. She notes that when she was initially given the first injection and a few days later she experienced severe cramping pain in her perineum. She reports leaking urine due to spasms when the pain occurs. She notes the pain at that time radiated from her groin to both of her knees. Per daughter, the patient was sitting and watching a movie this morning when she suddenly screamed in pain and laid on the floor unable to move due to the pain. She notes the pain seemed to start in her left knee and radiate up towards her groin and perineum. She states that after the first incident, Dr. Nguyen explained that she can experience spasms and pain as a side effect of the injections, though she feels this episode was much worse than the last two episodes. She rated the initial pain today a 10/10 in severity. She notes leaking urine due to the spasms, though she denies any pain with urination. She notes the pain seems to have decreased in severity and she currently rates her pain a 7/10 in severity. She notes that her groin is periodically sending spasms. She notes her left knee is swollen. She is currently taking Lyrica, Tramadol, Zofran, and Protonics. She was recently seen October 12, 2017 for an adverse reaction due to taking medication and alcohol at the same time. She was administered Zofran and fluids. She felt better upon discharge. Pt denies LOC, headache, fevers, chills, diaphoresis, visual changes, neck pain, chest pain, breathing difficulties, nausea, vomiting, abdominal pain, back pain, melena, hematochezia, urinary symptoms, numbness, changes to skin, rash, or other complaints. Source of History: patient Onset: two hours ago Position: knee (left) Symptom Intensity: 7/10 Quality: cramping, other (sore and radiating to groin) Timing: other (persistent) Modifying Factors (Worsening): movement Associated Symptoms: No urinary symptoms (no pain with urination) Note: She notes pain is radiating to her groin and perineum. She notes left knee swelling. She notes leaking urine. Review of Systems See HPI for pertinent positives and negatives. A total of ten systems were reviewed and were otherwise negative. Past Medical & Surgical Medical Problems: (1) Chest pain radiating to arm (2) Palpitations (3) Right foot drop Surgical Problems: (1) H/O discectomy (2) H/O gastric bypass (3) H/O rotator cuff surgery (4) History of cholecystectomy (5) History of laminectomy Family History Diabetes mellitus Social History Smoking Status: Never Smoker Smokeless Tobacco Use: No Alcohol Use: occasionally Drug Use: none Marital Status: single Housing Status: lives with family Occupation Status: unemployed Current/Historical Medications Scheduled Cholecalciferol (Vitamin D3), 2,000 MG PO DAILY Cyanocobalamin (Cyanocobalamin), 1,000 MCG IM Q4WK Ergocalciferol (Vitamin D 26503 Unit), 1 CAP PO Q2WK Ferrous Sulfate (Kp Ferrous Sulfate), 325 MG PO DAILY Ondasetron Odt (Zofran Odt), 4 MG SL Q6H Pantoprazole (Protonix), 40 MG PO QAM Pregabalin (Lyrica), 200 MG PO QAM Scheduled PRN Diclofenac Sodium (Topical) (Voltaren 1% Top Gel), 1 APPLN TOP QID PRN for Pain Tramadol (Ultram), 50 MG PO QAM PRN for Pain Allergies Coded Allergies: No Known Allergies (Unverified , 09/15/17) Physical Exam Vital Signs Date Time Temp Pulse Resp B/P (MAP) Pulse Ox O2 Delivery O2 Flow Rate FiO2 10/15/17 18:39 70 17 119/66 97 Room Air 10/15/17 17:23 71 19 118/65 98 Room Air 10/15/17 14:44 70 14 115/76 94 Room Air 10/15/17 14:00 74 16 119/74 94 Room Air 10/15/17 11:47 37.2 77 18 108/62 98 Room Air Physical Exam GENERAL: Awake, alert, uncomfortable-appearing, in mild distress HENT: Normocephalic, atraumatic. Oropharynx unremarkable. EYES: Normal conjunctiva. Sclera non-icteric. NECK: Supple. No nuchal rigidity. FROM. No masses. RESPIRATORY: Clear to auscultation. No wheezes. CARDIAC: Normal rate. Normal rhythm. No murmurs. No rubs. Extremities warm and well perfused. Pulses equal. No JVD. GI: Soft, non-distended. No tenderness to palpation. No rebound or guarding. No masses. RECTAL: Deferred. MUSCULOSKELETAL: Atraumatic. Chest examination reveals no tenderness. The back is symmetrical on inspection without obvious abnormality. There is no CVA tenderness to palpation. No joint edema. Limited ROM with leg abduction secondary to pain in inner thighs. Mild tenderness, no swelling, and no signs of infection. LOWER EXTREMITIES: Calves are equal size bilaterally and non-tender. No edema. No discoloration. NEURO: Normal sensorium. No sensory or motor deficits noted. No saddle anesthesia. SKIN: No rash or jaundice noted. Medical Decision & Procedures ER Provider Diagnostic Interpretation: Radiology results as stated below per my review and radiologist interpretation: LUMBAR SPINE W/O CONTRAST CLINICAL HISTORY: 47 years-old Female presenting with severe saddle pain, urinary incontinence. prior back surgery. TECHNIQUE: Multisequence, multiplanar MR imaging of the lumbar spine was performed without the use of intravenous contrast. IV contrast: None. COMPARISON: 04/02/2017. FINDINGS: Localizer images: Extra hepatic biliary ductal dilatation with the common duct measuring 14 mm in the midportion. Straightening of normal lumbar lordosis. . Bony edema noted at the endplates of L3-4 has significantly slightly decreased since the prior exam. Endplate changes at L4-5 are less severe and are unchanged from prior exam, combination of minimal edema and sclerotic changes. Vertebral bodies maintain normal height and alignment. Remainder bone marrow signal intensity normal. Disc desiccation noted from L3-4 through L5-S1 with disc height loss greatest at L3-4 and L4-5. Annular fissures suggested at L5-S1. L1-2: Normal. L2-3: Facet arthropathy without significant neural foraminal or spinal canal narrowing.. L3-4: Disc bulge with left neural foraminal narrowing does not result in significant spinal canal stenosis. Minimal bilateral neural foraminal narrowing. L4-5: Minimal disc bulge with right greater than left facet arthropathy result in mild to moderate right neural foraminal narrowing. No significant spinal canal narrowing. L5-S1: Minimal disc bulge with annular fissure. No significant spinal canal or neural foraminal narrowing. Spinal cord ends in good position at the superior endplate of L1. Cauda equina normal. Slight interval decrease in intramuscular edema noted in the right paraspinal region at the level of L5. No paraspinal fluid collection. No epidural collection. Remaining soft tissues within normal limits. IMPRESSION: 1. No evidence of cauda equina impingement. No significant spinal canal stenosis. 2. Multilevel degenerative changes with neural foraminal narrowing most significant at L4-5 on the right. 3. Decreased edema in the right paraspinal musculature at the L5 level, consistent with resolving muscle strain. 4. Significant extrahepatic biliary ductal dilatation. This could represent a reservoir effect in the post cholecystectomy state if the patient has had the gallbladder removed, which cannot be confirmed as no prior imaging of the abdomen has been performed. If the patient has not undergone cholecystectomy, further evaluation to be considered. The report will be called/faxed according to standard departmental protocol. Electronically signed by: Garland Rajan M.D. 10/15/2017 1:47 PM Dictated Date/Time: 10/15/2017 1:36 PM PELVIS WITHOUT CONTRAST (MRI) CLINICAL HISTORY: 47 years-old Female presenting with sacroiliac joint pain, history of injections. TECHNIQUE: Multisequence, multiplanar MR imaging of the pelvis was performed without the use of intravenous contrast. IV contrast: None. COMPARISON: None. FINDINGS: Localizer images: Unremarkable. Normal bone marrow signal intensity. No fluid in the sacroiliac joints. Normal appearance of the sacral ala and neural foramina. No muscular edema. No superficial soft tissue infiltration. Limited intrapelvic evaluation within normal limits. IMPRESSION: Normal MR examination of the sacroiliac joints. Electronically signed by: Garland Rajan M.D. 10/15/2017 5:22 PM Dictated Date/Time: 10/15/2017 5:15 PM Laboratory Results 10/15/17 12:45 Red Blood Count 3.98, Mean Corpuscular Volume 89.9, Mean Corpuscular Hemoglobin 30.2, Mean Corpuscular Hemoglobin Concent 33.5, Mean Platelet Volume 9.8, Neutrophils (%) (Auto) 61.4, Lymphocytes (%) (Auto) 27.9, Monocytes (%) (Auto) 9.6, Eosinophils (%) (Auto) 0.7, Basophils (%) (Auto) 0.3, Neutrophils # (Auto) 4.32, Lymphocytes # (Auto) 1.97, Monocytes # (Auto) 0.68, Eosinophils # (Auto) 0.05, Basophils # (Auto) 0.02 10/15/17 12:45 Test 10/15/17 12:45 10/15/17 13:30 White Blood Count 7.05 K/uL (4.8-10.8) Red Blood Count 3.98 M/uL (4.2-5.4) Hemoglobin 12.0 g/dL (12.0-16.0) Hematocrit 35.8 % (37-47) Mean Corpuscular Volume 89.9 fL (80-100) Mean Corpuscular Hemoglobin 30.2 pg (25-34) Mean Corpuscular Hemoglobin Concent 33.5 g/dl (32-36) Platelet Count 201 K/uL (130-400) Mean Platelet Volume 9.8 fL (7.4-10.4) Neutrophils (%) (Auto) 61.4 % Lymphocytes (%) (Auto) 27.9 % Monocytes (%) (Auto) 9.6 % Eosinophils (%) (Auto) 0.7 % Basophils (%) (Auto) 0.3 % Neutrophils # (Auto) 4.32 K/uL (1.4-6.5) Lymphocytes # (Auto) 1.97 K/uL (1.2-3.4) Monocytes # (Auto) 0.68 K/uL (0.11-0.59) Eosinophils # (Auto) 0.05 K/uL (0-0.5) Basophils # (Auto) 0.02 K/uL (0-0.2) RDW Standard Deviation 48.5 fL (36.4-46.3) RDW Coefficient of Variation 14.6 % (11.5-14.5) Immature Granulocyte % (Auto) 0.1 % Immature Granulocyte # (Auto) 0.01 K/uL (0.00-0.02) Prothrombin Time 9.9 SECONDS (9.0-12.0) Prothromb Time International Ratio 0.9 (0.9-1.1) Activated Partial Thromboplast Time 25.2 SECONDS (21.0-31.0) Partial Thromboplastin Ratio 1.0 Anion Gap 5.0 mmol/L (3-11) Est Creatinine Clear Calc Drug Dose 99.7 ml/min Estimated GFR () 96.6 Estimated GFR (Non- 83.4 BUN/Creatinine Ratio 16.2 (10-20) Calcium Level 8.3 mg/dl (8.5-10.1) Magnesium Level 2.4 mg/dl (1.8-2.4) Total Bilirubin 0.3 mg/dl (0.2-1) Direct Bilirubin 0.1 mg/dl (0-0.2) Aspartate Amino Transf (AST/SGOT) 22 U/L (15-37) Alanine Aminotransferase (ALT/SGPT) 24 U/L (12-78) Alkaline Phosphatase 53 U/L (45-117) Total Creatine Kinase 154 U/L (26-192) Total Protein 6.8 gm/dl (6.4-8.2) Albumin 3.3 gm/dl (3.4-5.0) Urine Color YELLOW Urine Appearance CLEAR (CLEAR) Urine pH 7.5 (4.5-7.5) Urine Specific [place] 1.010 (1.000-1.030) Urine Protein NEG (NEG) Urine Glucose (UA) NEG (NEG) Urine Ketones NEG (NEG) Urine Occult Blood NEG (NEG) Urine Nitrite NEG (NEG) Urine Bilirubin NEG (NEG) Urine Urobilinogen NEG (NEG) Urine Leukocyte Esterase NEG (NEG) Laboratory results reviewed by me Medications Administered Medications (Trade) Dose Ordered Sig/Monster Route Start Time Stop Time Status Last Admin Dose Admin Ondansetron HCl (Zofran Inj) 4 mg NOW STAT IV 10/15/17 12:13 10/15/17 12:18 DC 10/15/17 12:49 4 MG Hydromorphone HCl (Dilaudid Inj) 0.5 mg NOW STAT IV 10/15/17 12:13 10/15/17 12:18 DC 10/15/17 12:50 0.5 MG Diazepam (Valium Inj) 5 mg NOW STAT IV 10/15/17 14:23 10/15/17 14:24 DC 10/15/17 14:43 5 MG Miscellaneous Medication (Gi Cocktail) 24 ml NOW STAT PO 10/15/17 15:21 10/15/17 15:22 DC 10/15/17 15:21 24 ML Al Hydroxide/Mg Hydroxide (Maalox Susp) 30 ml STK-MED ONCE .ROUTE 10/15/17 15:33 10/15/17 15:34 DC 10/15/17 15:39 30 ML Lidocaine HCl (Viscous Lidocaine 2% Soln) 20 ml STK-MED ONCE .ROUTE 10/15/17 15:33 10/15/17 15:34 DC 10/15/17 15:39 20 ML Fentanyl Citrate (Fentanyl Inj) 50 mcg NOW STAT IV 10/15/17 17:30 10/15/17 17:32 DC 10/15/17 17:37 50 MCG Acetaminophen/ Hydrocodone Bitart (Arnett 5/325mg Home Pack) 1 homepack UD ONCE PO 10/15/17 17:30 10/15/17 17:32 DC 10/15/17 17:37 1 HOMEPACK Ketorolac Tromethamine (Toradol Inj) 15 mg NOW STAT IV 10/15/17 18:10 10/15/17 18:12 DC 10/15/17 18:18 15 MG ED Course 1208: The patient was evaluated in room B2. A complete history and physical exam was performed. 1213: Ordered Dilaudid 0.5 mg IV and Zofran 4 mg IV 1252: I reassessed the patient at this time. She is feeling better and was able to use the bathroom. 1400: I reassessed the patient at this time. She reports cramps in stomach. She notes her leg pain has improved. 1423: Ordered Diazepam 5 mg IV 1455: I reassessed the patient at this time. She is feeling better and resting comfortably. 1521: Ordered GI Cocktail 24 ml PO 1533: I spoke with Dr. Nguyen, anesthesiologist. We discussed the patient's case. The patient will be further evaluated tomorrow at 0930 for pain management 0930. He recommends consulting with radiology to see if the patient' s SI joints can be clearly visualized. 1541: I spoke with Dr. Rajan, radiologist. We discussed the patient's case. Unfortunately, the lower aspect where the injection site is cannot be seen. He recommends an MRI of the pelvis. 1730: Ordered Hydrocodone Bitart/Acetaminophen 1 homepack PO and Fentanyl Citrate 50 mcg IV 1756: I reassessed the patient at this time. She is having cramps, though they have since resolved. She does not want narcotics. I discussed the results and treatment plan with the patient. I answered all pertaining questions that she had. She expressed understanding and verbalized agreement. The patient will be discharged home. 1810: Ordered Toradol 15 mg IV Medical Decision Triage Nursing notes reviewed. The patient's presentation and history were concerning for groin pain. Etiologies such as lumbago, sciatica, cauda equina, epidural abscess, osteomyelitis, fracture, aortic disease, metastatic disease, infection, renal colic, gastrointestinal, myositis, rhabdomyolysis, muscular spasm, complication of recent injection, as well as others were entertained. The patient was evaluated. Her physical examination did not reveal any obvious findings although she had limited range of motion secondary to complaints of pain. She was neurovascularly intact. The patient complained of urinary incontinence. An IV was established. She was treated with multiple doses of medications as noted above. She had waxing and waning symptoms but overall improvement. She had unremarkable CBC and chemistry panel. Urinalysis was negative. MRI of the spine revealed degenerative changes but no abscess or cauda equina. I discussed the patient's case with her bridge painter, Dr. Nguyen. The patient will be seen tomorrow in the office. He recommended conservative management as long as her SI joint MR imaging did not reveal any evidence of abscess or abnormal findings. Radiology did complete the second part of the imaging and no significant abnormalities were found. The patient was still having some intermittent muscular spasms of the inner thighs. She has no findings on physical examination. She declined all additional IV narcotics. She requested IV Toradol. This was given. She was comfortable with having a home pack of hydrocodone for tonight in case she had any severe painful episodes. She will continue her current medications. She will follow-up in the office tomorrow for recheck. If she worsens in any way or other symptoms develop she will be back to the ER for reevaluation. By the evaluation outlined above other emergent etiologies such as those listed in the differential, as well as others, were deemed relatively unlikely. The patient was educated about the findings as listed above. All questions were answered and the patient was pleased with the treatment. Return instructions were outlined and the patient was discharged in stable condition. The patient was referred to her pain specialist and PCP for follow-up for a recheck of the current condition. Medication Reconcilliation Current Medication List: was personally reviewed by me Blood Pressure Screening Patient's blood pressure: Normal blood pressure Consults Time Called: [phone] Consulting Physician: Dr. Nguyen, pain management/anesthesiologist Returned Call: [phone] Nguyen. We discussed the patient's case. The patient will be further evaluated tomorrow at 0930 for pain management 0930. He recommends consulting with radiology to see if the patient's SI joints can be clearly visualized. Additional Consults: Time Called: 1535 Consulted Physician: Dr. Rajan, radiologist Returned Call: [phone] Additional Comments: I spoke with Dr. Rajan, radiologist. We discussed the patient's case. Unfortunately, the lower aspect where the injection site is cannot be seen. He recommends an MRI of the pelvis. Impression Primary Impression: Groin pain Scribe Attestation The scribe's documentation has been prepared under my direction and personally reviewed by me in its entirety. I confirm that the note above accurately reflects all work, treatment, procedures, and medical decision making performed by me. Departure Information Dispostion Home / Self-Care Referrals Samuel Guzman MD (PCP) Forms HOME CARE DOCUMENTATION FORM, IMPORTANT VISIT INFORMATION, WORK / SCHOOL INSTRUCTIONS Patient Instructions My [facility] Additional Instructions BACK PAIN/INJURY INSTRUCTIONS: DO NOT drive, drink alcohol, operate machinery, or perform dangerous activities today. You were given medications in the ER that can affect your ability to safely function or operate a vehicle. Hydrocodone/acetaminophen 5/325mg: Take 1-2 pills every 6 hours as needed for pain. Avoid additional Acetaminophen/Tylenol, alcohol, operating machinery or dangerous equipment, working on ladders or roofs, DRIVING, or situations where being under the influence may be dangerous. It is recommended to use a stool softener such as Colace, 100mg twice daily while taking this medication to avoid constipation. Rest and avoid heavy lifting until your symptoms resolve and then gradually return to full activity. A heating pad, warm compresses, or a hot shower may help with tight muscles and can be done several times a day as needed. Continue current medications. Return to the ER immediately for any numbness, tingling, severe pain, loss of control of your bowels or bladder, inability to walk, or as needed. Follow up with your bridge painter tomorrow morning at 0930 as discussed for a recheck of your current condition.
== END 2017-10-15 18:40 | disposition home or self-care (01) ==
LOC: EDBD 11:42 → C.EDB 11:43
DX: R10.9 Unspecified abdominal pain (principal); Z83.3 Family history of diabetes mellitus; Z79.899 Other long term (current) drug therapy

== ENCOUNTER → 2017-10-22 | Outpatient (CLI) | payer OTHER ==
--- NOTE | 2017-10-22 15:29 | DIAGNOSTIC IMAGING REPORT ---
RIGHT KNEE RADIOGRAPHS WITH COMPARISON STANDING AP RADIOGRAPH OF THE LEFT KNEE CLINICAL HISTORY: Right knee pain status post fall. COMPARISON: Knee radiographs March 25, 2017. FINDINGS: Comparison standing AP radiograph of the left knee demonstrates no significant abnormality. There is moderate right lateral patellar tilt. No acute fracture is identified. There is a small right knee joint effusion. Narrowing of the lateral patellofemoral joint space is noted. There is osteophytosis within the lateral patellofemoral compartments. There is also mild osteophytosis within the medial compartment. IMPRESSION: 1. No acute fracture. 2. Small right knee joint effusion. 3. Moderate lateral patellar tilt. Moderate osteoarthritis of the patellofemoral compartment and mild arthritis of the lateral compartment. Electronically signed by: William Bustamante M.D. 10/22/2017 3:27 PM Dictated Date/Time: 10/22/2017 3:26 PM
== END | disposition home or self-care (01) ==
LOC: C.RDSM 14:46
PROVIDERS: ATTEND Physician Assistant
DX: M25.561 Pain in right knee (principal); M25.461 Effusion, right knee; M25.861 Other specified joint disorders, right knee

== ENCOUNTER → 2017-11-11 | Outpatient (CLI) | payer OTHER ==
[~2017-11-11] MED LIST changes: -AMIT25TA9 PO
--- NOTE | 2017-11-11 08:43 | DIAGNOSTIC IMAGING REPORT ---
RIGHT KNEE INCLUDING BILATERAL STANDING AP VIEWS CLINICAL HISTORY: Right knee pain. Patellar fracture. COMPARISON: None. DISCUSSION: Again evident are osteoarthritic changes, most pronounced involving the lateral joint compartment of the right knee. There is mild lateral patellar tilt, unchanged the prior study. Degenerative changes are present within the patellofemoral joint with dorsal patellar spurring. No acute fractures are visualized. IMPRESSION: 1. No acute fractures identified on conventional radiographic imaging 2. Osteoarthritic changes present within the patellofemoral joint and lateral joint compartment. Lateral patellar tilt. Electronically signed by: Alexander Hoang M.D. 11/11/2017 8:41 AM Dictated Date/Time: 11/11/2017 8:40 AM
== END | disposition home or self-care (01) ==
LOC: C.RDSM 15:41
PROVIDERS: ATTEND Physician Assistant
DX: S82.024A Nondisplaced longitudinal fracture of right patella, initial encounter for closed fracture (principal); X58.XXXA Exposure to other specified factors, initial encounter

== ENCOUNTER → 2017-11-17 | Outpatient (CLI) | payer OTHER | END | disposition home or self-care (01) | LOC: C.RDSM 12:40 | PROVIDERS: ATTEND Physical Medicine & Rehabilitation Sports Medicine | DX: M25.511 Pain in right shoulder (principal) ==

== ENCOUNTER 2017-12-03 12:27 | Emergency (ER) | payer OTHER ==
[~2017-12-03] VITALS: Ht 167.6 cm; Wt 102.0 kg
[2017-12-03 12:30] VITALS: TEMP 36.8; Ht 167.6 cm; Wt 102.0 kg
[2017-12-03] MEDS ORDERED: DIAZEPAM 5MG TAB PO STA (12:52)
[2017-12-03] MEDS ORDERED: DEXAMETHASONE **PF** INJ 10 MG/ML VIAL IV STA (12:52)
[2017-12-03] MEDS ORDERED: DEXAMETHASONE INJ 10 MG in SYRINGE 0 ML IM STA (12:58)
[2017-12-03] MEDS ORDERED: DEXAMETHASONE **PF** INJ 10 MG/ML VIAL IM STA (13:11)
[2017-12-03] MEDS ORDERED: CYM/30 PO (13:25)
--- NOTE | 2017-12-03 13:52 | EMERGENCY ROOM VISIT NOTE ---
ED Visit Note First contact with patient: 12:38 CHIEF COMPLAINT: Neck pain HISTORY OF PRESENT ILLNESS: This 47-year-old female patient presents to the emergency department, ambulatory, with her daughter, complaining of pain in the neck and radiating into the shoulder and arms, causing some tingling in the fingers on the right. The patient states 2 weeks ago the symptoms became worse. They have been waking her at night, and become worse with lying flat. The patient states several weeks ago, she fell outside while walking her dog, and landed on her right outstretched hand. She did experience a fractured patella from that fall. She has been following with Dr. Silva, who advised her that the shoulder pain is likely related to a pinched nerve in the arm and would have to heal on its own. She states the pain has been worsening and she cannot sleep. She has not been taking any anti-inflammatory medication for several weeks due to her history of gastric bypass and inability to tolerate NSAIDs. The patient rates the pain as sharp and 8/10. The patient has taken Lyrica, tramadol, and Tylenol without relief of the pain. The patient denies a history of previous neck problems. The patient does have pain of the right arm and shoulder. The patient does report some numbness and tingling in the right upper extremity at times, worse at night. The patient denies chest pain or shortness of breath. There was no head injury and no loss of consciousness. The patient denies headache, blurred vision, abdominal pain, nausea, or vomiting. The patient denies change in personality. REVIEW OF SYSTEMS: A 10 system review of systems was completed with positives and pertinent negatives listed in the HPI. ALLERGIES: None MEDICATIONS: Lyrica, tramadol, Tylenol, Protonix, vitamins, Voltaren gel PMH: Patellar fracture, gastric bypass SOCIAL HISTORY: The patient lives locally with family. She denies drug, alcohol , tobacco use. PHYSICAL EXAM: VITALS: Vitals are noted on the nurse's note and reviewed by myself. Vital signs stable. GENERAL: This is a 47-year-old female, in no acute distress, nondiaphoretic, well-developed well-nourished. SKIN: Capillary reflex less than 2 seconds. HEENT: Normocephalic. PERRLA. EOMI. Nares patent. Mucous membranes moist. Neck is supple without nuchal rigidity. Cervical spine is mildly tender to palpation over the area of C1 and C2 and the base of the skull. The patient does have right-sided tenderness of the paraspinal muscles. There is no lymphadenopathy. MUSCULOSKELETAL: The patient has full range of motion of the bilateral arms. Strength 5/5 of the bilateral upper extremities. The patient has tenderness with palpation of the neck and upper back in the trapezius muscle. NEURO: Patient was alert and oriented to person place and time. Normal sensation to light and sharp touch. No focal neurologic deficits. RADIOLOGY: CERVICAL SPINE 3 VIEWS CLINICAL HISTORY: RUE paresthesias COMPARISON STUDY: None FINDINGS: The prevertebral soft tissues are normal. No fractures or subluxations are visualized. There are moderate degenerative changes the C5-6 level. IMPRESSION: Moderate degenerative changes at the C5-6 level. Electronically signed by: Alexander Hoang M.D. 12/03/2017 1:53 PM Dictated Date/Time: 12/03/2017 1:52 PM R SHOULDER MIN 2 VIEWS ROUTINE CLINICAL HISTORY: right shoulder pain pain COMPARISON: 11/17/2017 Discussion: mild degenerative change glenohumeral and acromioclavicular joints. Mild cortical irregularity of the lateral aspect humeral head suggesting prior partial Hill-Sachs type deformity. No abnormal soft tissue calcifications. IMPRESSION: 1. Minimal/mild degenerative change. Mild old Hill-Sachs type deformity posterior lateral aspect humeral head. No acute process. The above report was generated using voice recognition software. It may contain grammatical, syntax or spelling errors. Electronically signed by: Karlos Rodriguez M.D. 12/03/2017 1:57 PM Dictated Date/Time: 12/03/2017 1:55 PM EMERGENCY DEPARTMENT COURSE: I examined the patient. Her symptoms are consistent with a cervical radiculopathy. I suspect this is related to either the recent fall or her immobility since the fall. The patient's symptoms did minimally improve with steroids. She has not tried any anti-inflammatories, she is unable to take NSAIDs due to gastric bypass surgery. She will be treated with a short course of steroids and muscle relaxers. She was encouraged to closely follow-up outpatient with her orthopedic surgeon, and I recommended considering physical therapy. The patient was agreeable. She does currently have a prescription for tramadol, so does not need further narcotic medication. All questions were answered to patient's satisfaction. Discharge instructions reviewed, patient was discharged home in good condition. I attest that I have personally reviewed the patient's current medication list. Patient was found to have normal blood pressure on screening and does not require follow-up. Etiologies such as cervicalgia, cervical radiculopathy, frozen shoulder, fracture, strain, sprain, contusion, epidural abscess, osteomyelitis, metastatic disease, infection, renal colic, gastrointestinal, as well as others were entertained. DIAGNOSIS: Cervical radiculopathy The chart was completed utilizing [employer] voice recognition software. Grammatical errors, random word insertions, pronoun errors, and incomplete sentences are an occasional consequence of this system due to software limitations, ambient noise, and hardware issues. Any formal questions or concerns about the content, text, or information contained within the body of this dictation should be directly addressed to the provider for clarification. Problem List Medical Problems: (1) Chest pain radiating to arm Status: Resolved (2) Palpitations Status: Resolved (3) Right foot drop Status: Chronic Surgical Problems: (1) H/O discectomy Status: Resolved (2) H/O gastric bypass Status: Resolved (3) H/O rotator cuff surgery Status: Resolved (4) History of cholecystectomy Status: Resolved (5) History of laminectomy Status: Resolved Current/Historical Medications Scheduled Baclofen (Lioresal), 10 MG PO TID Cholecalciferol (Vitamin D3), 2,000 MG PO DAILY Cyanocobalamin (Cyanocobalamin), 1,000 MCG IM Q4WK Duloxetine Hcl (Cymbalta), 1 TAB PO DAILY Ondasetron Odt (Zofran Odt), 4 MG SL Q6H Pantoprazole (Protonix), 40 MG PO QAM Prednisone (Prednisone Tab), 0 PO DAILY Pregabalin (Lyrica), 200 MG PO BID Scheduled PRN Diclofenac Sodium (Topical) (Voltaren 1% Top Gel), 1 APPLN TOP QID PRN for Pain Tramadol (Ultram), 50 MG PO QAM PRN for Pain Allergies Coded Allergies: No Known Allergies (Unverified , 12/03/17) Vital Signs Date Time Temp Pulse Resp B/P (MAP) Pulse Ox O2 Delivery O2 Flow Rate FiO2 4/25/18 14:51 68 16 114/62 97 12/03/17 12:30 36.8 81 20 122/77 97 Room Air Medications Administered Medications (Trade) Dose Ordered Sig/Monster Route Start Time Stop Time Status Last Admin Dose Admin Diazepam (Valium Tab) 5 mg NOW STAT PO 12/03/17 12:52 12/03/17 12:54 DC 12/03/17 13:16 5 MG Dexamethasone Sodium Phosphate (Dexamethasone Inj Pf) 10 mg NOW STAT IM 12/03/17 13:11 12/03/17 13:14 DC 12/03/17 13:17 10 MG Departure Information Impression Primary Impression: Radiculopathy of cervical region Dispostion Home / Self-Care Condition GOOD Prescriptions Prednisone (Prednisone Tab) 20 Mg Tab 0 PO DAILY, #18 TAB 3 DAILY FOR 3 DAYS, THEN 2 DAILY FOR 3 DAYS, THEN 1 DAILY FOR 3 DAYS. Prov: Wanda Burch PA-C 12/03/17 Baclofen (LIORESAL) 10 Mg Tab 10 MG PO TID, #30 TAB Prov: Wanda Burch PA-C 12/03/17 Referrals No Doctor, Assigned (PCP) Patient Instructions ED Cervical Radiculopathy, [facility] Additional Instructions You have been treated in the Emergency Department for Neck Pain. You have received pain medicine in the emergency department which impairs your ability to operate a vehicle. It is illegal for you to drive after receiving these medicines. You have been prescribed Flexeril (cyclobenzaprine) 1 tabs orally, three times per day. Do NOT exceed 30 mg (3 tabs) per day. Take your first dose at bedtime as it can make you drowsy. Always take all medications as prescribed. For pain control, you can use the following [id number] medicines (if >12 yo): Ibuprofen(Motrin, Advil) may be used for fever or pain. Use 600mg every six hours as needed. Take with food. Avoid using more than 2400mg in a 24 hour period. Do not use 2400mg per day for more than three consecutive days without physician direction. Prolonged inappropriate use can lead to stomach upset or ulcers. (AND/OR) Acetaminophen(Tylenol) may be used for fever or pain. Use 1000mg every six hours as needed. Avoid using more than 3000mg in a 24 hour period. If this is an acute injury, ice can be applied to the area of pain for the first 3 days to help decrease pain and inflammation. After the first 3 days, a heating pad can be used over the area for continued soothing relief. You should schedule a follow-up appointment in 2-3 days with your Primary Care Provider for further evaluation and treatment of your neck pain. Return to the Emergency Department if your current symptoms worsen despite treatment course outlined above, or if you develop any of the following symptoms : intractable pain despite aforementioned treatment course, facial droop, slurred speech, unilateral weakness, or worsening of her current symptoms.
--- NOTE | 2017-12-03 13:58 | DIAGNOSTIC IMAGING REPORT ---
R SHOULDER MIN 2 VIEWS ROUTINE CLINICAL HISTORY: right shoulder pain pain COMPARISON: 11/17/2017 Discussion: mild degenerative change glenohumeral and acromioclavicular joints. Mild cortical irregularity of the lateral aspect humeral head suggesting prior partial Hill-Sachs type deformity. No abnormal soft tissue calcifications. IMPRESSION: 1. Minimal/mild degenerative change. Mild old Hill-Sachs type deformity posterior lateral aspect humeral head. No acute process. The above report was generated using voice recognition software. It may contain grammatical, syntax or spelling errors. Electronically signed by: Karlos Rodriguez M.D. 12/03/2017 1:57 PM Dictated Date/Time: 12/03/2017 1:55 PM
[2017-12-03] MEDS ORDERED: BACL1TAB PO (14:16)
[2017-12-03] MEDS ORDERED: PRED20TA2 PO (14:16)
[2017-12-03 14:51] VITALS: BP 114/62; PULSE 68; O2SAT 97
== END 2017-12-03 14:53 | disposition home or self-care (01) ==
LOC: C.EDB 12:27 → C.EDD 14:53
DX: M54.12 Radiculopathy, cervical region (principal); Z98.84 Bariatric surgery status; Z90.49 Acquired absence of other specified parts of digestive tract; Z98.890 Other specified postprocedural states

== ENCOUNTER 2017-12-11 21:49 | Emergency (ER) | payer OTHER ==
[~2017-12-11] VITALS: Ht 167.6 cm; Wt 107.0 kg
[~2017-12-11 21:49] MED LIST changes: +BACL1TAB PO; +CYM/30 PO; -ERGO500037 PO; -FERR1TAB13 PO; +PRED20TA2 PO
[2017-12-11 22:00] VITALS: TEMP 36.7; Ht 167.6 cm; Wt 107.0 kg
[2017-12-11] MEDS ORDERED: ONDA4TAB10 SL (22:59)
[2017-12-11] MEDS ORDERED: PRED20TA PO (22:59)
[2017-12-11] MEDS ORDERED: CYM/30 PO (22:59)
[2017-12-11] MEDS ORDERED: BACL10TA PO (22:59)
[2017-12-11] MEDS ORDERED: AMT/25 PO (22:59)
[2017-12-12] MEDS ORDERED: HYDROmorphone INJ 1 MG/ML SYR IM STA (00:05)
[2017-12-12] MEDS ORDERED: CYCLOBENZAPRINE HCL 10 MG TAB PO STA (00:05)
--- NOTE | 2017-12-12 01:27 | EMERGENCY ROOM VISIT NOTE ---
ED Visit Note First contact with patient: 22:10 I have personally seen and evaluated the patient with the PA. I agree with the diagnosis and management decisions and have been personally involved in the case. A CT scan of the lumbar spine was ordered and is significant for degenerative disc disease. There does not appear to be any acute fracture. The patient was reassured regarding her findings. She seems to be much improved after p.o. prednisone, Flexeril and IM Dilaudid. Patient will be discharged on a prednisone taper, Flexeril 5 mg 3 times a day as needed and given a [place] home pack. Patient was discharged to care of family. Please see Jose Andres PA-C's notes for further details of the history, physical and visit.
[2017-12-12] MEDS ORDERED: NORCO 5/325MG HOME PACK PO ONE (01:30)
[2017-12-12] MEDS ORDERED: PRED20TA PO (01:31)
[2017-12-12] MEDS ORDERED: CYCL5TAB PO (01:31)
[2017-12-12] MEDS ORDERED: ONDANSETRON 4MG OD TAB PO STA (01:34)
[2017-12-12 01:59] VITALS: BP 110/68; PULSE 73; O2SAT 96
--- NOTE | 2017-12-12 02:53 | EMERGENCY ROOM VISIT NOTE ---
History First contact with patient: 22:10 Chief Complaint: BACK PAIN Stated Complaint: BACK PAIN, LEG NUMBNESS History of Present Illness The patient is a 47 year old female who presents to the Emergency Room with complaints of severe acute onset back pain with radiation down her bilateral legs. The patient states that her symptoms began about 90 minutes ago after waking up from a nap on her couch. She does not have a distinct injury or trauma to explain her symptoms otherwise. The patient rates her discomfort a 10 /10. She does have a history of chronic back pain with surgery a few years ago in [place]. She follows locally with the pain clinic where she has had injection therapy. She is also following with [facility] orthopedics for various knee problems. The patient has had MRI at this facility less than 2 months ago that did show some disc protrusion but no significant herniation. The patient has not had fevers or chills. No saddle paresthesias or urinary incontinence. The patient is having difficulty walking tonight because of her pain. Ambulation and movement does worsen her symptoms. She is on tramadol daily for her back pain, and just finished a prednisone taper today. The patient is not having significant neck, chest, or abdominal pain. She has had episodes like this in the past that sound like spasm in her back. Review of Systems More than 10 systems were reviewed and otherwise negative with the exception of history of present illness. Past Medical/Surgical History Medical Problems: (1) Chest pain radiating to arm (2) Palpitations (3) Right foot drop Surgical Problems: (1) H/O discectomy (2) H/O gastric bypass (3) H/O rotator cuff surgery (4) History of cholecystectomy (5) History of laminectomy Family History Diabetes mellitus Social History Smoking Status: Never Smoker Alcohol Use: occasionally Drug Use: none Marital Status: single Housing Status: lives with family Occupation Status: unemployed Current/Historical Medications Scheduled Amitriptyline HCl (Amitriptyline HCl), 1 DOSE PO HS Baclofen (Lioresal), 10 MG PO TID Cholecalciferol (Vitamin D3), 2,000 MG PO DAILY Cyanocobalamin (Cyanocobalamin), 1,000 MCG IM Q4WK Cyclobenzaprine Hcl (Flexeril), 5 MG PO TID Duloxetine HCl (Cymbalta), 30 MG PO DAILY Pantoprazole (Protonix), 40 MG PO QAM Prednisone (Prednisone), 20 MG PO DIRECTED Prednisone (Prednisone), 0 PO DAILY Pregabalin (Lyrica), 200 MG PO BID Scheduled PRN Diclofenac Sodium (Topical) (Voltaren 1% Top Gel), 1 APPLN TOP QID PRN for Pain Ondasetron Odt (Zofran Odt), 4 MG SL Q6H PRN for Nausea or Vomiting Tramadol (Ultram), 50 MG PO QAM PRN for Pain Physical Exam Vital Signs Date Time Temp Pulse Resp B/P (MAP) Pulse Ox O2 Delivery O2 Flow Rate FiO2 12/12/17 01:59 73 16 110/68 96 Room Air 12/11/17 23:50 82 18 122/80 98 Room Air 12/11/17 22:02 73 12/11/17 22:00 36.7 73 15 106/63 96 Room Air Physical Exam VITALS: Vitals are noted on the nurse's note and reviewed by myself. Vital signs stable. GENERAL: Well-developed, well-nourished, obese female, who is moderately uncomfortable but nontoxic. NECK: Supple without nuchal rigidity. No lymphadenopathy. No thyromegaly. Cervical spine is nontender. HEART: Regular rate and rhythm without murmurs gallops or rubs. LUNGS: Clear to auscultation bilaterally without wheezes, rales or rhonchi. No retractions or accessory muscle use. ABDOMEN: Positive normal bowel sounds x 4. Soft, nontender, without masses or organomegaly. No guarding or rebound tenderness. MUSCULOSKELETAL: Positive tenderness of the lower lumbar spine. No saddle paresthesias. Positive straight leg raise bilateral. No evidence of abscess. NEURO: Patient was alert and oriented to person place and time. CN II through XII grossly intact. No focal neurological deficits. Deep tendon reflexes 2+ throughout. Medical Decision & Procedures ER Provider Diagnostic Interpretation: Preliminary Findings Only See Final Report For Complete Findings CT L SPINE: No fracture or malalignment. Degenerative disc disease Medications Administered Medications (Trade) Dose Ordered Sig/Monster Route Start Time Stop Time Status Last Admin Dose Admin Cyclobenzaprine HCl (Flexeril Tab) 10 mg NOW STAT PO 12/12/17 00:05 12/12/17 00:07 DC 12/12/17 00:14 10 MG Prednisone (PredniSONE TAB) 60 mg NOW STAT PO 12/12/17 00:05 5/4/18 00:07 DC 12/12/17 00:14 60 MG Hydromorphone HCl (Dilaudid Inj) 1 mg NOW STAT IM 12/12/17 00:05 12/12/17 00:07 DC 12/12/17 00:14 1 MG Acetaminophen/ Hydrocodone Bitart ([place] 5/325mg Home Pack) 1 homepack UD ONCE PO 12/12/17 01:30 12/12/17 01:31 DC 12/12/17 01:58 1 HOMEPACK Ondansetron HCl (Zofran Odt) 4 mg NOW STAT PO 12/12/17 01:34 12/12/17 01:35 DC 12/12/17 01:34 4 MG ED Course Physical exam and history were performed. Nursing notes, EMR, and Medication List were personally reviewed. Patient appears to have low back pain radiating down her legs bring her to the emergency department by ambulance. I had a lengthy discussion with the patient regarding options of care, and the voice frustration as the patient has recurrence of the symptoms over the years. The patient is requesting testing to explain her symptoms. I attempted to offer the patient pain medication, however the patient was frustrated with this because "I don't want to be doped up and sent home". Review of the EMR shows that she has had 3 emergent MRIs in the past 2 years of her lumbar spine, the last of which was less than 2 months ago. She does not have additional trauma to explain her symptoms, and based on her exam I do not suspect cauda equina or spinal abscess as the likely etiology of her symptoms. I attempted to convey this information to the patient and family, however it was evident after 35 minutes of conversation we had difficulty communicating in a way that was acceptable to the patient. Despite offering her pain medication, imaging, and specialty resources she requested to speak with my attending. This was brought to the attention of the charge nurse who did speak with the patient. The case was discussed with Dr. Burk, who independently evaluated the patient. Dr. Burk ordered CT scan and pain medication. The patient CT scan of the L-spine does not show evidence of acute fracture or malalignment. The patient felt significantly improved after pain medication here in the department, and was comfortable for discharge home. The patient was given a home pack of Vicodin as well as prescriptions for prednisone and Flexeril. The patient is to follow-up with her specialists for further care and management. She was otherwise invited back to the ER with any new, worsening, or concerning symptoms. The chart was completed utilizing [employer]ognition Software. Grammatical errors, random word insertions, pronoun errors, and incomplete sentences are an occasional consequence of this system due to software limitations, ambient noise, and hardware issues. Any formal questions or concerns about the content, text, or information contained within the body of this dictation should be directly addressed to the provider for clarification. . Medical Decision Differential diagnosis: Etiologies such as musculoskeletal, disc herniation, fracture, aortic disease, metastatic disease, cord compression, discitis, infection, renal colic, gastrointestinal, acute exacerbation of chronic back pain, sciatica, cauda equina, as well as others were entertained. Impression Primary Impression: Low back pain Departure Information Dispostion Home / Self-Care Condition GOOD Prescriptions Cyclobenzaprine Hcl (FLEXERIL) 5 Mg Tab 5 MG PO TID for 7 Days, #21 TAB PRN Prov: Jose Andres PA-C 12/12/17 Prednisone (Prednisone) 20 Mg Tab 0 PO DAILY, #18 TAB 3 DAILY FOR 3 DAYS, THEN 2 DAILY FOR 3 DAYS, THEN 1 DAILY FOR 3 DAYS. Prov: Jose Andres PA-C 12/12/17 Forms HOME CARE DOCUMENTATION FORM, IMPORTANT VISIT INFORMATION Patient Instructions My [facility] Additional Instructions You were seen and evaluated today on an emergency basis only. This is not a substitute for, or an effort to provide, complete comprehensive medical care. It is not possible to recognize and treat all injuries or illnesses in a single emergency department visit. For this reason it is recommended that you followup with your primary care physician, painter interior finish, and orthopedist for ongoing care and evaluation. Continue your home medications as prescribed. Begin another home prednisone taper. Flexeril 1 tablet up to 3 times a day as needed for muscle spasms. No driving, working, or alcohol use with Flexeril. You are welcome to return to the emergency department anytime with new, worsening, or concerning symptoms.
--- NOTE | 2017-12-12 07:50 | DIAGNOSTIC IMAGING REPORT ---
CT SCAN OF THE LUMBAR SPINE WITHOUT IV CONTRAST CLINICAL HISTORY: Chronic low back pain. Lower extremity radiculopathy. COMPARISON STUDY: MRI of the lumbar spine dated 10/15/2017. Radiographs of the lumbar spine dated 08/29/2017. TECHNIQUE: CT scan of the lumbar spine was performed from the lower thoracic spine to the sacrum. Images are reviewed in the axial, sagittal, and coronal planes. IV contrast was not administered for this examination. A dose lowering technique was utilized adhering to the principles of ALARA. CT DOSE: 879.28 mGy.cm FINDINGS: The skeletal structures are well mineralized. There is no evidence of fracture or malalignment involving the lumbar spine. Vertebral body height and alignment are maintained. There is minimal lumbar levocurvature centered at L4. Small anterior and marginal osteophytes are seen throughout. There is straightening of the lumbar lordosis. The transverse and spinous processes are intact. There is no evidence of spondylolysis. No lytic or blastic lesion is seen. Mild facet arthropathy is seen at L4-L5 and L5-S1. There is moderate disc space narrowing at L3-L4 and L4-L5 with associated endplate sclerosis. Mild disc space narrowing is seen at L5-S1. There is no evidence of large disc herniation by CT. Small posterior disc osteophyte complexes are seen at L3-L4, L4-L5, and L5-S1. There is no evidence of high-grade central canal stenosis. The visualized sacrum and bony pelvis appear intact. The paraspinous soft tissues are normal as visualized. The imaged retroperitoneal structures are grossly unremarkable. IMPRESSION: 1. No acute bony abnormality is seen involving the lumbar spine. 2. Mild spondylotic change as above. This was better characterized on the recent MRI of the lumbar spine. Dictated: 12/12/2017 7:22 AM Transcribed: 12/12/2017 7:50 AM Chris Electronically signed by: Godwin Zepeda M.D. 12/12/2017 7:51 AM Dictated Date/Time: 12/12/2017 7:22 AM
== END 2017-12-12 02:04 | disposition home or self-care (01) ==
LOC: EDBD 21:49 → C.EDB 21:50
DX: M54.16 Radiculopathy, lumbar region (principal); G89.29 Other chronic pain; Z98.890 Other specified postprocedural states; Z79.891 Long term (current) use of opiate analgesic; Z79.899 Other long term (current) drug therapy

== ENCOUNTER → 2018-03-26 | Outpatient (CLI) | payer OTHER ==
[~2018-03-26] MED LIST changes: +AMT/25 PO; +BACL10TA PO; -BACL1TAB PO; +GADAVIST IV PRN; +PRED20TA PO; -PRED20TA2 PO
--- NOTE | 2018-03-26 13:43 | DIAGNOSTIC IMAGING REPORT ---
MRI OF THE CERVICAL SPINE WITH AND WITHOUT CONTRAST CLINICAL HISTORY: Right-sided neck pain. Numbness in fingers. COMPARISON: Cervical spine radiographs December 03, 2017. TECHNIQUE: Utilizing a 1.5 Sara magnet and dedicated coil, multiplanar, multiecho imaging of the cervical spine was performed before and after intravenous administration of 4.5 of Gadavist. FINDINGS: Alignment of the cervical spine is anatomic. Vertebral body heights are maintained. There is no marrow edema or marrow replacement. Cervical cord signal and caliber are normal. There is no intracanalicular mass or fluid collection. Paravertebral soft tissues are unremarkable. Visualized portions of the posterior fossa are unremarkable. C2-C3: The central canal and neural foramen are patent. C3-C4: Central canal is patent. There is mild narrowing of the left neural foramen. Moderate narrowing of the right neural foramen is noted due to disc osteophyte complex and uncovertebral hypertrophy. C4-C5: Tiny central disc protrusion is noted. Central canal is patent. There is mild bilateral neural foraminal stenosis. C5-C6: Posterior disc osteophyte complex results in mild narrowing of the central canal. There is an annular tear. The neural foramen are patent. C6-C7: Minimal posterior disc osteophyte complex is noted. Central canal is patent. Neural foramen are patent. C7-T1: Central canal and neural foramen are patent. IMPRESSION: 1. Mild multilevel degenerative disc disease without severe central canal stenosis. Mild central canal narrowing at C5-C6. Normal cervical cord signal and caliber. 2. Mild to moderate multilevel neural foraminal narrowing, as detailed above. Electronically signed by: William Bustamante M.D. 03/26/2018 1:42 PM Dictated Date/Time: 03/26/2018 1:31 PM
== END | disposition home or self-care (01) ==
LOC: C.MRIBC 11:53
PROVIDERS: ATTEND Nurse Practitioner Family
DX: M48.02 Spinal stenosis, cervical region (principal); M99.71 Connective tissue and disc stenosis of intervertebral foramina of cervical region; M79.601 Pain in right arm; R20.0 Anesthesia of skin; R29.898 Other symptoms and signs involving the musculoskeletal system

== ENCOUNTER 2021-12-18 08:18 | Inpatient (IN) ==
--- NOTE | 2021-12-06 11:49 | PAT Medication Instructions ---
Medication Instructions Date of Service December 06, 2021 Home Medications cholecalciferol (vitamin D3) 50 mcg (2,000 unit) capsule (Vitamin D3) 2,000 unit PO 2XWK cyanocobalamin (vitamin B-12) 1,000 mcg/mL injection solution 1,000 mcg SUBCUT MO diclofenac sodium 1 % topical gel (Voltaren) 1 dose TOPICAL QID PRN pantoprazole 40 mg tablet,delayed release 40 mg PO QAM tramadol 50 mg tablet 50 mg PO Q6 PRN cyclobenzaprine 5 mg tablet 5 mg PO HS PRN pregabalin 200 mg capsule (Lyrica) 200 mg PO BID sertraline 100 mg tablet 100 mg PO HS bupropion HCl 450 mg 24 hr tablet, extended release 450 mg PO QAM Continue as directed cyanocobalamin (vitamin B-12) 1,000 mcg/mL injection solution 1,000 mcg SUBCUT MO STOP taking 24 hours before surgery diclofenac sodium 1 % topical gel (Voltaren) 1 dose TOPICAL QID PRN DO NOT take the morning of surgery cholecalciferol (vitamin D3) 50 mcg (2,000 unit) capsule (Vitamin D3) 2,000 unit PO 2XWK Take morning of surgery With a small sip of water, OTHERWISE NOTHING TO EAT OR DRINK AFTER MIDNIGHT: pantoprazole 40 mg tablet,delayed release 40 mg PO QAM tramadol 50 mg tablet 50 mg PO Q6 PRN (okay to take up to 4 hours prior to surgery if needed) pregabalin 200 mg capsule (Lyrica) 200 mg PO BID bupropion HCl 450 mg 24 hr tablet, extended release 450 mg PO QAM Take evening before surgery tramadol 50 mg tablet 50 mg PO Q6 PRN (if needed) cyclobenzaprine 5 mg tablet 5 mg PO HS PRN (if needed) pregabalin 200 mg capsule (Lyrica) 200 mg PO BID sertraline 100 mg tablet 100 mg PO HS Other Notes If you have any questions please call us at [phone] or [phone] or [phone] or [phone]
--- NOTE | 2021-12-10 15:41 | Anesthesiology Consultation ---
Date of Service December 10, 2021 Assessment & Plan (1) Encounter for pre-operative examination: - Patient acceptable risk for surgery pending surgeon-ordered PCP preop evaluation (Khushi BRAYRP- PSH/already done per pt). - COVID screening: Per assessment on 12/10: No known COVID-19 positive contacts or current COVID-19 related symptoms. Travel screen negative. Patient vaccinated. Surgeon arranging preop COVID testing. Awaiting results. Chart Review Chart Review: Patient seen in Pre Admission Testing Teaching & Discussion Pre-Anesthesia Teaching/Discussion Notes: Instructed NPO after midnight before surgery,except medications with 15 cc of water. Medication instructions provided according to the PAT guidelines. History Surgery Operation Date: 12/18/21 07:00 Proposed Procedures p Right Total Knee Arthroplasty - Garland Silva MD Height/Weight Height: 5 ft 6 in Weight: 108.1 kg Allergies Allergy/AdvReac Type Severity Reaction Status Date / Time NSAIDS (Non-Steroidal AdvReac TOLD TO Verified 12/06/21 08:20 Anti-Inflamma AVOID R/T GASTRIC BYPASS Medications Home Medications Medication Instructions Recorded Confirmed Last Taken cholecalciferol (vitamin D3) 50 2,000 unit PO 2XWK 04/30/18 12/06/21 Unknown mcg (2,000 unit) capsule (Vitamin D3) cyanocobalamin (vitamin B-12) 1,000 mcg SUBCUT MO 04/30/18 12/06/21 Unknown 1,000 mcg/mL injection solution diclofenac sodium 1 % topical gel 1 dose TOPICAL QID PRN 04/30/18 12/06/21 Unknown (Voltaren) pantoprazole 40 mg tablet,delayed 40 mg PO QAM 04/30/18 12/06/21 Unknown release tramadol 50 mg tablet 50 mg PO Q6 PRN 04/30/18 12/06/21 Unknown cyclobenzaprine 5 mg tablet 5 mg PO HS PRN 10/14/19 12/06/21 Unknown pregabalin 200 mg capsule (Lyrica) 200 mg PO BID 04/13/20 12/06/21 Unknown sertraline 100 mg tablet 100 mg PO HS 05/11/21 12/06/21 Unknown bupropion HCl 450 mg 24 hr tablet, 450 mg PO QAM 12/06/21 12/06/21 Unknown extended release Past Medical History Medical History (Updated 12/10/21 @ 16:34 by Monie Landrum) Anemia Anxiety Arthritis Fibromyalgia Hx of attention deficit disorder As child Hypoglycemia Diet controlled- OR made aware to make earlier case Neuropathy Right foot drop Mild Exercise / Class Metabolic Activity II 4-5 Yardwork/Stairs/Walk up hill Past Family History Family History (Updated 12/06/21 @ 08:31 by Talia Tom, GHULAM) Father Hypertension Mother Breast cancer Family history of diabetes mellitus Sister Family history of diabetes mellitus Other Graves disease No family history of adverse response to anesthesia Past Surgical History Surgical History (Updated 12/06/21 @ 08:31 by Talia Tom, GHULAM) H/O gastric bypass 2006 H/O rotator cuff surgery LEFT History of X 2 History of cholecystectomy History of colonoscopy History of esophagogastroduodenoscopy (EGD) History of lumbar surgery LAMINECTOMY/DISCECTOMY History of partial hysterectomy History of tooth extraction S/P anal fissurectomy Social History Smoking Status: Never smoker Hx Alcohol Use: Yes alcohol intake frequency: holidays/special occasions only substance use type: does not use Review of Systems Patient denies chest pain, shortness of breath, dyspnea on exertion, fever, chills, cough, wheezing, palpitations. Physical Exam Vital Signs VITALS BP 104/69 P 72 TEMP 98.3 SP02 97%RA RESP 16 PHYSICAL Full cervical extension range of motion. Full TMJ range of motion. TMD 4 finger breaths Mallampati Score 1 Dentition: intact Lungs: clear throughout to auscultation Cardiac: regular rate and rhythm, no murmurs noted Spine: normal Carotid arteries: negative bruit Extremities: no edema Lab Results Anesthesia Preop Results Results Anesthesia Widget: WBC 5.25 K/uL (4.8-10.8) 12/10/21 Hgb 12.5 g/dL (12.0-16.0) 12/10/21 Hct 38.4 % (37-47) 12/10/21 Plt 259 K/uL (130-400) 12/10/21 Na 137 mmol/L (136-145) 12/10/21 K 4.5 mmol/L (3.5-5.1) 12/10/21 Cl 103 mmol/L (98-107) 12/10/21 CO2 30 mmol/L (21-32) 12/10/21 BUN 12 mg/dl (6-23) 12/10/21 Creat 0.77 mg/dl (0.6-1.2) 12/10/21 Glucose Level 80 mg/dl (70-99(Fasting)) 12/10/21 PT 10.1 Seconds (9.0-12.0) 12/10/21 PTT 25.7 Seconds (21.0-31.0) 12/10/21 INR 0.9 (0.9-1.1) 12/10/21 Blood Type O Negative 12/10/21 Antibody Screen NEGATIVE 12/10/21 Testing Electrocardiogram Date: 12/11/21 NSR at 70bpm. unconfirmed report. Chest X-Ray Date: 12/11/21 FINDINGS: Lung volumes are normal. Lungs are clear. There is no pneumothorax or pleural effusion. Cardiac size is normal. Mediastinal contours are normal. There is no evidence for pulmonary edema. There is slight elevation/eventration of the right hemidiaphragm. Upper abdominal surgical clips are noted. IMPRESSION: No acute cardiopulmonary findings.
[~2021-12-18 08:18] MED LIST changes: +ACETAMINOPHEN 500 MG TAB PO SCH; -AMT/25 PO; -BACL10TA PO; +BUPIVACAINE 0.5 % 5 MG/1 ML PF 10ML VIAL ONE; -CHOL2000 PO; -CYM/30 PO; -CYNI1000 IM; +CeleBREX 200 MG CAP PO SCH; +DEXAMETHASONE SOD INJ 4 MG/ML VIAL ONE; -DICL1GEL12 TOP; +FAMOTIDINE 20 MG TAB PO SCH; +GABAPENTIN 900 MG DOSE PO SCH; -GADAVIST IV PRN; +LR 500ML BOLUS, THEN 15ML/HR IV SCH; +LR 60ML/HR IV SCH; +METOCLOPRAMIDE HCL 10 MG TABLET PO SCH; +MIDAZOLAM HCL 1 MG/ML 2ML VIAL ONE; -ONDA4TAB10 SL; +ONDANSETRON INJ 2 MG/ML 2 ML VIAL ONE; -PANT40TA PO; -PRED20TA PO; -PREG200C PO; +PROPOFOL IV EMULSION 10 MG/ML 20 ML VIAL IV ONE; +ROPIVACAINE 0.5% 5 MG/ML 30 ML VIAL ONE; +ROPIVACAINE 0.5% HCL/PF 150 MG, BUPIVACAINE 0.75% MPF 20 ML, EPINEPHrine 0.15 MG, Ketor... INFIL SCH; -TRAM-10 PO; +TRANEXAMIC ACID 1,000 MG **IV Intra-op IV SCH; +TRANEXAMIC ACID 1,000 MG **IV Pre-op IV SCH; +ceFAZolin 2000MG 2,000 MG/15 ML SYR IV SCH; +cloNIDine HCL 0.1 MG/24 HR TRANSDERM SYS TD SCH; +dexAMETHasone 4 MG TAB PO SCH; +oxyCODONE HCL 10 MG TABCR (OxyCONTIN) PO SCH; +traMADol HCL 50 MG TABLET PO SCH
[2021-12-18] MEDS ORDERED: HYDROmorphone INJ 2 MG/ML SYR/VIAL IV PRN (09:42)
[2021-12-18] MEDS ORDERED: ePHEDrine sulfate 50 MG/ML AMP IV PRN (09:42)
[2021-12-18] MEDS ORDERED: PROMETHAZINE HCL 12.5 MG in SODIUM CHLORIDE 0.9% 50 ML IV PRN (09:42)
[2021-12-18] MEDS ORDERED: ONDANSETRON INJ 2 MG/ML 2 ML VIAL IV PRN (09:42)
[2021-12-18] MEDS ORDERED: ATROPINE SULFATE 0.1 MG/ML 10ML SYR IV PRN (09:42)
--- NOTE | 2021-12-18 11:02 | History & Physical Bridge Note ---
Date of Service December 18, 2021 History & Physical Bridge Note I have examined the patient, reviewed the History & Physical and in the interval since the performance of the History & Physical I have noted the following changes of clinical significance: no changes noted
[2021-12-18] MEDS ORDERED: ORTHO JOINT ANESTHETIC ONE (11:31)
[2021-12-18] MEDS ORDERED: PROPOFOL IV EMULSION 10 MG/ML 20 ML VIAL IV ONE ×2 (11:38→13:52)
[2021-12-18] MEDS ORDERED: VANCOMYCIN HCL 1000MG/20ML VIAL ONE (11:45)
--- NOTE | 2021-12-18 15:19 | Operative Report ---
Post Operative Report Pre & Post Diagnosis Operation Date: 12/18/21 09:30 Pre-Op Diagnosis: Unilateral Primary Osteoarthrits Right Knee Post-Op Diagnosis: Unilateral Primary Osteoarthrits Right Knee I identified the patient and participated in the time-out.: Yes Procedure Operation Date: 12/18/21 09:30 Actual Procedures p Right Total Knee Arthroplasty(Right) - Garland Silva MD Surgeon Garland Silva MD Log Chain Feeder Annabelle Olsen medical student, Erwin Cortez fellow, Lawanda Jang Estimated Blood Loss 5 Findings Consistent with Post-Op Diagnosis Specimens Resected bone and soft tissue Anesthesia Type MAC Spinal Regional Complications none Disposition Accompanied Patient To Recovery: No Disposition: Recovery Room Indications Patient is 51 years old. She has significant right knee pain and osteoarthritis. Imaging work-up indicates that she is more likely to benefit from replacement procedure versus arthroscopic based upon alignment and loss of cartilage lateral compartment. Description of Procedure Informed consent obtained. Patient identified. She identified the operative site as the right knee. I marked with my initials. A preoperative surgical timeout was performed. A preop dose of IV antibiotics was given. She was taken to the operating room and positioned supine on the operating room table a bump was placed under the right hip. A tourniquet on the right thigh. A bump under the right calf for positioning. Leg was prescribed prepped and draped in usual sterile fashion. DVT prophylaxis intraoperatively with foot pumps. Postoperatively early mobility, mechanical devices and Lovenox. The exam demonstrated range 0/5/1 10-1 15 with valgus alignment. There was no significant MCL or LCL laxity. A dose of TXA was given. Bony prominences were inspected and padded. Limb exsanguinated with the Esmarch and tourniquet inflated 275 mmHg. Later increased to 300. A midline longitudinal incision was made of about 20 to 25 cm in length extended as necessary. A full-thickness medial flap was elevated followed by medial parapatellar arthrotomy. The retropatellar fat pad was resected. The synovial reflection in the lateral gutter was released. There were large osteophytes along the patella with wholesale grade 3 and 4 changes of the patella. Osteophytes were removed. Soft tissue on the anterior aspect the distal femur was excised and a minimal medial release was performed. The patella could not be everted due to the fat layer and it was tucked off to the side of the knee. The knee was flexed. There was some grade 3 chondrosis over a 1-1/2 to 2 cm area of the extended weightbearing area of the medial femoral condyle. The medial meniscus was largely intact in the medial tibial plateau. Relatively normal. The cruciate ligaments were resected. Osteophytes were noted along the lateral more so the medial side of the knee and these were excised as encountered. The central tibial plateau had an area of 1-1/2 to 2 cm of grade 4 chondrosis. The 45 degree weightbearing area of the femoral condyle had a full-thickness loss of cartilage down to bone which was in the neighborhood of 1 and half to 2 cm. The lateral meniscus was macerated and largely extruded and it was then excised from the knee. The tibia was then easily subluxated and exposed. An intramedullary a pilot steam yacht hole was made just in front of and between the tibial spines. The penelope was introduced the whole way down the tibia. The 0 degree cutting block was applied and aligned with the tibial tubercle and pinned in the place. To fully seat this required removal of the prominence of the tibial spines. We made a conservative cut of 6 mm laterally corresponding to 8 mm medially the guide was pinned in place and the extra medullary alignment was checked showing that the slope was parallel to the tibia and the alignment penelope bisected the malleoli and intersected the second ray. This was then carefully cut and sized to a 3. A pilot steam yacht hole was drilled into the distal femur just above the PCL this was followed by insertion of the distal femoral cutting guide set 5 degrees valgus 12 mm thick. This was pinned in the place and the cut was made. The extension gap was a tight 10 with a couple millimeters of looseness medially. The epicondylar axis was marked out and the distal femoral sizing block was applied and sized with 3. The external rotation drill holes were made which matched the epicondylar axis. A size 3 anterior cutting block was applied. This was the anterior down cutting block. Collateral ligaments protected cuts were made. The flexion gap was a pretty symmetric 12.5. We then went ahead and applied the box cutting guide lateralized it and made the box cut. The trial femur was applied. We then prepared the tibia with the keel and the post. The knee was then reduced with the size 10 spacer. This showed slight looseness medially and tightness laterally in extension but equal laxity of a couple millimeters in 90 degrees flexion. The patella was measured to be 21 mm in thickness. I selected a 35 mm 3 peg oval dome patella. The guide was set to preserve a little over 14 mm of bone. The cut was made. The paddle was applied and aligned and the lug holes were drilled. Patellar tracking was good with no hands technique. The trial components were removed from the knee. The canals were plugged. Ortho joint mix injected in the mid bony surfaces were meticulously prepared with pulsatile lavage. Soft tissues were kept moist throughout the surgical procedure. I then applied a lamina swimming teacher and did an inverted cruciform release. The lateral geniculate's were identified superiorly and the release began there and proceeded down to the cut surface of the tibia and then from there out to the patellar tendon and back to the LCL. This released the tight lateral structures and allow the 12.5 block to be inserted with full extension and good symmetric tightness. 2 bags of Simplex P cement were mixed and while in a doughy workable state, the components were then cemented into place femur tibia patella with a trial spacer held in full extension until cement hardened. Tourniquet was then let down after about 150 minutes of inflation and meticulous hemostasis was performed. There was minimal bleeding. Trialing with a 10 spacer was performed followed by the 12.5. 12.5 gave better stability and full extension mid position and 90 degrees flexion. It also allow the knee to be fully straightened without hyperextension. The final 12.5 mm thick polyethylene insert was applied. The back of the knee was inspected for cement. Previously then back the knee was inspected and lateral osteophytes were removed. The lateral capsule was also released released from the tibia and osteophytes there were resected as encountered. The knee was then irrigated. Meticulous hemostasis was performed. Closure was then performed with #1 Vicryl below the equator of the patella and a running and interrupted fashion. #2 FiberWire above the equator of the patella. The skin was then closed in layers with 0 and 2-0 Vicryl followed by janett on the skin. The leg was cleaned wet and dry sponges and a bulky soft sterile dressing was applied Xeroform 4 x 4's ABD soft wrap and full-length [place] wrap with knee immobilizer. A Prevena wound VAC will be placed tomorrow. She was then awakened from anesthesia without difficulty and taken to the recovery room in stable condition there were no specimens or complications counts were correct and blood loss is estimated to be 5 cc. At the conclusion the operation spoke patient's family and informed them of my findings. She will be admitted to the hospital for a routine postop total knee protocol. [place] assisted flexion with the extensor mechanism closed was 105 to 110 degrees limited by the soft tissue envelope. Composite patellar thickness was 23 mm. Patellar tracking was fine for no hands technique. Components inserted with a J[employer]J PFC Sigma rotating platform knee a size 3 right posterior stabilized femur and a size 3 mobile-bearing keeled tibial tray a 12.5 mm thick size 3 polyethylene insert and a 35 mm 3 peg oval dome patella I attest to the content of the Intraoperative Record and any orders documented therein. Any exceptions are noted below.
--- NOTE | 2021-12-18 15:22 | Operative Report ---
Post Operative Report Pre & Post Diagnosis Operation Date: 12/18/21 09:30 Pre-Op Diagnosis: Unilateral Primary Osteoarthrits Right Knee Post-Op Diagnosis: Unilateral Primary Osteoarthrits Right Knee I identified the patient and participated in the time-out.: Yes Procedure Operation Date: 12/18/21 09:30 Actual Procedures p Right Total Knee Arthroplasty(Right) - Garland Silva MD Surgeon Gonzales Silva MD Rn Neonatal Marquis Cortez MD, Linh VARNER Estimated Blood Loss 5 Findings Consistent with Post-Op Diagnosis Consistent with post op findings. Please see Dr. Silva note. Specimens Bone and soft tissue specimens. Description of Procedure I participated in prepping dressing and assisted Dr. Silva during the procedure. Please see Dr. Silva note. I attest to the content of the Intraoperative Record and any orders documented therein. Any exceptions are noted below. Supervising Physician Co-Signing Physician Notes Dr. Silva
--- NOTE | 2021-12-18 15:40 | Anesthesiology Progress Note ---
Date of Service December 18, 2021 Anesthesia Post Procedure Vital Signs Vital Signs: Temp Pulse Pulse Resp BP Pulse Ox 12/18/21 15:30 78 14 126/76 98 12/18/21 15:22 97.7 F 78 10 L 106/65 100 12/18/21 08:51 98.1 F 79 22 117/61 97 Pain Intensity Right Knee: Pain Intensity: 7 Transfer of Care Handoff Completed per policy Notes Mental Status: alert / awake / arousable and participated in evaluation Patient Amnestic to Procedure: Yes Nausea / Vomiting: adequately controlled Pain: adequately controlled Airway Patency, RR, SpO2: stable & adequate BP & HR: stable & adequate Hydration State: stable & adequate Neuraxial Anesthesia: was administered and sensory block is resolving Anesthetic Complications: no major complications apparent and Pt Satisfied with anesthetic care
[2021-12-18] MEDS: fentaNYL citrate 100 MCG/2 ML VIAL IV PRN ×2 (16:02→16:07)
--- NOTE | 2021-12-18 16:27 | XRay Report ---
RIGHT KNEE 2 VIEWS History: Right total knee arthroplasty. Degenerative arthritis. Postop. FINDINGS: The patient is status post a right total knee arthroplasty. The hardware is intact. No frac ture or dislocation. Skin janett are in place. IMPRESSION: Right total knee arthroplasty. No evidence for hardware complication. ACT 112: Negative or not required by law. Electronically signed by: Marcos Castañeda M.D. 12/18/2021 4:25 PM
[2021-12-18] MEDS ORDERED: HYDROmorphone INJ 0.5 MG/0.5 ML SYR IV PRN (16:49)
[2021-12-18] MEDS ORDERED: MAGNESIUM HYDROXIDE SUSP 30 ML UDC PO PRN (16:49)
[2021-12-18] MEDS ORDERED: diphenhydrAMINE Capsule 25 MG CAP PO PRN (16:49)
[2021-12-18] MEDS ORDERED: traMADol HCL 50 MG TABLET PO PRN (16:49)
[2021-12-18] MEDS ORDERED: diphenhydrAMINE 50 MG/ML VIAL IV PRN (16:49)
[2021-12-18] MEDS ORDERED: bisacodyL 10 MG SUPP PR PRN (16:49)
[2021-12-18] MEDS ORDERED: NALOXONE HCL 0.4 MG/1 ML VIAL/CARP IV PRN (16:49)
[2021-12-18] MEDS ORDERED: ALUMINUM/MAGNESIUM SUSP 30 ML UDC PO PRN (16:49)
[2021-12-18] MEDS: CHECK CLONIDINE PATCH PLACEMENT SCH ×3 (16:53→23:17)
[2021-12-18] MEDS: SODIUM CHLORIDE 0.9% 1000ML 1,000 ML IV SCH (17:11)
--- NOTE | 2021-12-18 17:29 | Orthopedic Progress Note ---
Date of Service December 18, 2021 Assessment & Plan (1) Status post total right knee replacement: Plan: POD 0- Right total knee replacement PT/OT to start tomorrow. Home medications continued. Pain medication as prescribed PRN. Allowed to be out of bed weight bear as tolerated right lower extremity with walker and knee immobilizer on her right leg when out of bed. Ice to right knee PRN pain/swelling. Teds/AV impulse boots and Lovenox (to start tomorrow) for DVT prophylaxis. Case management for discharge plan, she would like to go to [facility]. States that she contacted her insurance and it's 100% approved by her insurance. Discussed findings with Dr. Silva. Reviewed x-rays with patient and her family - will show her again tomorrow as she may have little recollection of my visit. All questions answered, will re-eval in AM. Admission and Anticipated Discharge Date Admission Date: December 18, 2021 Subjective Patient resting in bed, complaining of back pain, denies knee pain right now. Leg is still numb, just getting to her room from PACU. Sister and at her bedside. She is groggy and in and out of sleep during my visit. Physical Exam Musculoskeletal: Dressings right knee clean, dry and intact. Ice in place. Dorsal and plantar foot is numb with light touch. Strong dorsalis pedis pulse. No edema right foot today. Able to slightly extend her toes, but not her big toe. No ankle ROM yet, no big toe ROM. Results & Data ([facility]) Vital Signs (Past 12 Hours) Vital Signs Temp Pulse Pulse Resp BP Pulse Ox 12/18/21 17:05 36.6 C 86 16 120/77 100 12/18/21 16:35 36.6 C 88 14 119/75 98 12/18/21 16:20 84 14 123/87 95 12/18/21 16:10 36.3 C L 86 14 140/84 90 12/18/21 16:00 78 14 128/83 97 12/18/21 15:50 87 14 118/72 98 12/18/21 15:40 36.4 C L 78 14 119/74 98 12/18/21 15:30 78 14 126/76 98 12/18/21 15:22 36.5 C 78 10 L 106/65 100 12/18/21 08:51 36.7 C 79 22 117/61 97 Diagnostic Findings RIGHT KNEE 2 VIEWS History: Right total knee arthroplasty. Degenerative arthritis. Postop. FINDINGS: The patient is status post a right total knee arthroplasty. The hardware is intact. No fracture or dislocation. Skin janett are in place. IMPRESSION: Right total knee arthroplasty. No evidence for hardware complication.
[2021-12-18] MEDS: oxyCODONE HCL IR 5 MG TAB (IMMEDIATE RELEASE) PO PRN (18:01)
[2021-12-18] MEDS: KETOROLAC 30 MG/ML VIAL IV SCH ×2 (18:10→23:16)
[2021-12-18] MEDS: HYDROmorphone INJ 1 MG/ML SYRINGE IV PRN ×2 (19:12→23:13)
[2021-12-18] MEDS: ACETAMINOPHEN 500 MG TAB PO SCH (22:09)
[2021-12-18] MEDS: PREGABALIN 100 MG CAP PO SCH (22:09)
[2021-12-18] MEDS: SENNA 8.6 MG TAB PO SCH (22:10)
[2021-12-18] MEDS: DOCUSATE SODIUM 100 MG CAP PO SCH (22:10)
[2021-12-18] MEDS: ceFAZolin 2000MG 2,000 MG/15 ML SYR IV SCH (22:10)
[2021-12-19] MEDS: SODIUM CHLORIDE 0.9% 1000ML 1,000 ML IV SCH (02:53)
[2021-12-19] MEDS: ACETAMINOPHEN 500 MG TAB PO SCH ×3 (05:16→21:07)
[2021-12-19] MEDS: KETOROLAC 30 MG/ML VIAL IV SCH ×2 (05:17→12:39)
[2021-12-19] MEDS: HYDROmorphone INJ 1 MG/ML SYRINGE IV PRN ×3 (05:19→21:04)
[2021-12-19] MEDS: ceFAZolin 2000MG 2,000 MG/15 ML SYR IV SCH (05:19)
[2021-12-19 06:30] LABS: Hematocrit (blood only) 33.6 % (37-47); Hemoglobin 10.7 g/dL (12.0-16.0); Mean Corpuscular Hemoglobin 29.9 pg (25-34); Mean Corpuscular Hgb Conc 31.8 g/dL (32-36); Mean Corpuscular Volume 93.9 fL (80-100); Mean Platelet Volume 10.2 fL (7.4-10.4); Platelet Count 231 K/uL (130-400); RDW Coefficient of Variation 14.1 % (11.5-14.5); RDW Standard Deviation 48.4 fL (36.4-46.3); Red Blood Count 3.58 M/uL (4.2-5.4)
[2021-12-19 06:57] LABS: BUN Creatinine Ratio 19.2 (10-20); Calcium 7.9 mg/dl (8.5-10.1); Creatinine Clr Calc Pharmacy 105.4 ml/min; Est GFR (African American) 101.3 ml/min; Est GFR (Non-African American) 87.4 ml/min; Potassium 4.2 mmol/L (3.5-5.1)
[2021-12-19] MEDS ORDERED: dexAMETHasone 4 MG TAB PO SCH (08:00)
[2021-12-19] MEDS: CHECK CLONIDINE PATCH PLACEMENT SCH ×2 (08:01→17:30)
[2021-12-19] MEDS: MULTIVITAMIN TAB PO SCH (08:39)
[2021-12-19] MEDS: DOCUSATE SODIUM 100 MG CAP PO SCH ×2 (08:40→21:05)
[2021-12-19] MEDS: PANTOprazole 40 MG TAB PO SCH (08:40)
[2021-12-19] MEDS: ENOXAPARIN INJ 30 MG/0.3 ML SYR SQ SCH ×2 (08:41→21:05)
[2021-12-19] MEDS: PREGABALIN 100 MG CAP PO SCH ×2 (08:54→21:04)
[2021-12-19] MEDS: oxyCODONE HCL IR 5 MG TAB (IMMEDIATE RELEASE) PO PRN ×2 (09:32→17:34)
[2021-12-19] MEDS: POLYETHYLENE (MIRALAX) 17 GM PACK PO PRN (09:38)
--- NOTE | 2021-12-19 12:11 | Progress Notes ---
DATE OF SERVICE: 12/19/2021 She is resting comfortably in bed. No significant problems are reported. She is afebrile. Her vital signs are stable. Her urine output is noted at 0.23 mL/kg per hour. Whi te count 10, hemoglobin 11, hematocrit 33, platelets 231. PRP noted. X-ray reviewed and shows no ev idence of complication, a well-positioned total knee arthroplasty. On exam, she is able to help reposition herself. The dressing is clean and dry. Ice pack intact. S he reports some diminished sensation throughout the foot with pins and needles and varying degrees of numbness. There are no areas of normal sensation, but she does have more numbness laterally. She i s able to feel the top and bottom of her foot as well as medially. Cap refill less than 2 seconds. Pedal pulses, dorsalis pedis and posterior tib are both dopplerable, but are difficult to palpate. S he has motor function intact throughout. She can activate ankle and toe dorsiflexion, plantarflexion , inversion and eversion, but does not have a sustained effort to measure strength. These would be 2 -3/5 at most. Likely inhibited by pain perception and perhaps resolving nerve block. IMPRESSION: Right total knee arthroplasty. PLAN: She is doing well. Lovenox for DVT prophylaxis. PT and OT. We will plan on changing her gui ssing probably tomorrow and applying the wound VAC. Hopefully, she will be accepted and approved for [facility], which will be beneficial for her. We talked about management of her pain and disc ussed the results of the surgical procedure. Job ID: [id number]
[2021-12-19] MEDS: CeleBREX 200 MG CAP PO SCH (21:06)
[2021-12-19] MEDS: SENNA 8.6 MG TAB PO SCH (21:06)
[2021-12-20] MEDS: CHECK CLONIDINE PATCH PLACEMENT SCH ×3 (01:50→15:04)
[2021-12-20] MEDS: oxyCODONE HCL IR 5 MG TAB (IMMEDIATE RELEASE) PO PRN ×4 (02:20→20:23)
[2021-12-20] MEDS: HYDROmorphone INJ 1 MG/ML SYRINGE IV PRN ×4 (06:02→22:04)
[2021-12-20] MEDS: ACETAMINOPHEN 500 MG TAB PO SCH ×3 (06:03→22:04)
[2021-12-20] MEDS: CeleBREX 200 MG CAP PO SCH ×2 (08:06→20:17)
[2021-12-20] MEDS: PREGABALIN 100 MG CAP PO SCH ×2 (08:06→20:22)
[2021-12-20] MEDS: MULTIVITAMIN TAB PO SCH (08:06)
[2021-12-20] MEDS: PANTOprazole 40 MG TAB PO SCH (08:06)
[2021-12-20] MEDS: ENOXAPARIN INJ 30 MG/0.3 ML SYR SQ SCH ×2 (08:06→20:18)
[2021-12-20] MEDS: DOCUSATE SODIUM 100 MG CAP PO SCH ×2 (08:06→20:17)
[2021-12-20] MEDS: POLYETHYLENE (MIRALAX) 17 GM PACK PO PRN (08:15)
--- NOTE | 2021-12-20 09:08 | Orthopedic Progress Note ---
Date of Service December 20, 2021 Assessment & Plan (1) Status post total right knee replacement: Plan: Patient is postop day 2. She was encouraged to participate in PT and OT. She was encouraged to keep on top of her pain medication with oral meds if possible. Her dressing will be changed later today by Peyton GOMEZ. Continue with ice and elevation. She was encouraged to perform frequent quad sets. Follow-up in the office as scheduled for staple removal. Call with any other concerns. Admission and Anticipated Discharge Date Admission Date: December 18, 2021 Subjective Patient is seen in her room this morning. She states she has significant pain. She states she can normally handle a lot of pain, but this was unbearable. She has been using Dilaudid and oxycodone. She did refuse to participate in her morning exercises. She denies any nausea or vomiting. She describes the knee pain is burning. She was out of bed last night and did ambulate in her room. She also was sitting in the chair last evening. She is currently in bed. Physical Exam Physical Exam: General: Well-developed, well-nourished, middle-aged female, in no acute distress. Obvious discomfort. Laying in bed. Conversive. Skin: Warm and dry with good turgor. No rashes. Postsurgical dressings are in place. They are dry. They were not removed at this time. Musculoskeletal: Patient has a dropfoot on the right side. She does have some light motor function intact to the ankle for plantarflexion. She is also able to set her quad with significant encouragement. Neurologic: Gross sensation is intact across the right leg at the thigh and ankle, by soft touch. Peripheral pulses are 2+. Results & Data ([facility]) Vital Signs (Past 12 Hours) Vital Signs Temp Pulse Resp BP Pulse Ox 12/20/21 07:33 36.7 C 75 18 107/84 98 12/19/21 22:52 36.8 C 77 16 95/56 L 94
[2021-12-20] MEDS: ONDANSETRON INJ 2 MG/ML 2 ML VIAL IV PRN (16:20)
--- NOTE | 2021-12-20 17:55 | Progress Notes ---
DATE OF SERVICE: 12/20/2021 The patient is seen for routine postoperative care. Her family is with her. She reports increased p ain today, but she was able to participate with physical therapy. She is afebrile. Her vital signs are stable. She has no labs today. On exam, her foot is warm with capillary refill less than 2 seconds. She has 3/5 strength to ankle a nd toe dorsiflexion, plantarflexion, inversion, and eversion. There is chronic numbness on the later al side of her foot. On the plantar aspect of the foot, she reports some degree of numbness, but thi s might be close to normal. The top of the foot and medial side of the foot feel better than it did yesterday, almost normal, but still a little bit numb and tingly. The foot is not swollen. Her dres sing is changed. The incision is benign. There is no significant drainage and no intra-articular ef fusion or fluid collection. A Prevena wound VAC is applied. She is doing well postoperatively. We will continue to work with her to control her pain. She is be ing evaluated for placement at [facility]. That authorization is pending. She will continue PT and O T. Lovenox for DVT prophylaxis. There is a possibility that she may need to go home if she does not qualify for [facility]. I think her weakness is secondary to pain inhibition. Job ID: [id number]
[2021-12-20] MEDS: SENNA 8.6 MG TAB PO SCH (20:17)
[2021-12-21] MEDS: CHECK CLONIDINE PATCH PLACEMENT SCH ×3 (00:16→14:11)
[2021-12-21] MEDS: oxyCODONE HCL IR 5 MG TAB (IMMEDIATE RELEASE) PO PRN ×4 (01:55→18:38)
[2021-12-21] MEDS: ACETAMINOPHEN 500 MG TAB PO SCH ×3 (06:38→21:00)
[2021-12-21 07:44] LABS: Creatinine Clr Calc Pharmacy 133.1 ml/min; Est GFR (African American) 119.5 ml/min; Est GFR (Non-African American) 103.1 ml/min
[2021-12-21] MEDS: POLYETHYLENE (MIRALAX) 17 GM PACK PO PRN (08:06)
[2021-12-21] MEDS: PREGABALIN 100 MG CAP PO SCH ×2 (08:07→21:03)
[2021-12-21] MEDS: ENOXAPARIN INJ 30 MG/0.3 ML SYR SQ SCH ×2 (08:08→20:58)
[2021-12-21] MEDS: DOCUSATE SODIUM 100 MG CAP PO SCH ×2 (08:08→20:59)
[2021-12-21] MEDS: PANTOprazole 40 MG TAB PO SCH (08:08)
[2021-12-21] MEDS: MULTIVITAMIN TAB PO SCH (08:08)
[2021-12-21] MEDS: CeleBREX 200 MG CAP PO SCH ×2 (08:08→20:59)
[2021-12-21] MEDS: ONDANSETRON INJ 2 MG/ML 2 ML VIAL IV PRN (08:18)
[2021-12-21] MEDS: HYDROmorphone INJ 1 MG/ML SYRINGE IV PRN ×2 (10:22→15:09)
--- NOTE | 2021-12-21 13:34 | Orthopedic Progress Note ---
Date of Service December 21, 2021 Assessment & Plan (1) Status post total right knee replacement: Plan: POD 3- Right total knee replacement continue PT/OT. Pain medication as prescribed PRN. Allowed to be out of bed weight bear as tolerated right lower extremity with wal ker and knee immobilizer on her right leg when out of bed, can discontinue knee immobilizer when has good leg control. Ice to right knee PRN pain/swelling. Teds/AV impulse boots and Lovenox for DVT prophylaxis. [facility] currently [facility]. If not [facility] then patient may consider SNF. She doesn't feel that she is able to go home. She's worried if she goes home she will not get the adequate rehab needed to be successful from this surgery. Discussed with case management. Will disucss findings with Dr. Silva. Will continue to follow - Dr. Callahan will cover for Dr. Silva over the . Most likely will be here until Friday. All questions answered. Admission and Anticipated Discharge Date Admission Date: December 20, 2021 Subjective She is resting in bed today, doing well. Pain in right knee but she state's "this is expected from her surgery". She has been able to participate in PT. States that she has pain in her inner groin. Slightly nauseated. Taking pain medication which does help with her pain. She states she was worried this morning, but does understand that this amount of pain is normal for after surgery. Physical Exam Musculoskeletal: Right knee: Prevena in place, functioning. She is able to lift her leg 1 inch off the bed, pain with movement. No distal edema, calf midly sore to the touch, same as yesterday. Foot is warm, able to wiggle toes. No ecchymosis right groin, paresthesias lateral aspect of knee. Results & Data ([facility]) Vital Signs (Past 12 Hours) Vital Signs Temp Pulse Resp BP Pulse Ox 12/21/21 07:13 37.1 C 85 16 106/65 97
[2021-12-21] MEDS: SENNA 8.6 MG TAB PO SCH (20:59)
[2021-12-22] MEDS: oxyCODONE HCL IR 5 MG TAB (IMMEDIATE RELEASE) PO PRN ×3 (00:10→18:21)
[2021-12-22] MEDS: CHECK CLONIDINE PATCH PLACEMENT SCH ×3 (00:12→15:48)
[2021-12-22] MEDS: HYDROmorphone INJ 1 MG/ML SYRINGE IV PRN ×2 (05:01→20:18)
[2021-12-22] MEDS: ACETAMINOPHEN 500 MG TAB PO SCH ×3 (06:11→22:08)
--- NOTE | 2021-12-22 08:05 | Orthopedic Progress Note ---
Date of Service December 22, 2021 Assessment & Plan (1) Status post total right knee replacement: Plan: POD 4- Right total knee replacement continue PT/OT. Pain medication as prescribed PRN. Allowed to be out of bed weight bear as tolerated right lower extremity with wal ker and knee immobilizer on her right leg when out of bed, can discontinue knee immobilizer when has good leg control. Ice to right knee PRN pain/swelling. Teds/AV impulse boots and Lovenox for DVT prophylaxis. [facility] currently [facility]. If not [facility] then patient may consider SNF. She doesn't feel that she is able to go home. She's worried if she goes home she will not get the adequate rehab needed to be successful from this surgery. Discussed with case management. Will continue to follow Most likely will be here until Friday. All questions answered. Admission and Anticipated Discharge Date Admission Date: December 20, 2021 Subjective Patient is resting comfortably in bed this AM. She has been able to participate in PT. Pain is managed with oral pain meds. Nausea has resolved. States that she feels better today than yesterday. She also denies CP, SOB, vomiting, fever, chills, sweats, lethargy, numbness/tingling. She is anticipating going to rehab but has not yet been approved. Review of Systems Review of Systems: All systems reviewed & are unremarkable except as noted in Subjective Physical Exam Physical Exam: Right knee: Prevana in place and draining appropriately. Patient able to actively flex to 80 degrees and extend to 0. Calf is soft and supple but TTP. Periph pulses palpable. Cap refill less than 2 seconds. Only able to active SLR about 1-1 1/2 off of bed. Able to actively dorsi and plantar flex foot. Has chronic Drop foot. NV intact in Rt LE. Results & Data ([facility]) Vital Signs (Past 12 Hours) Vital Signs Temp Pulse Resp BP Pulse Ox 12/22/21 07:14 36.9 C 78 17 116/70 97 12/21/21 22:10 37 C 86 16 115/74 99 Diagnostic Findings Laboratory Results WBC 9.90 K/uL (4.8-10.8) 12/19/21 05:54 RBC 3.58 M/uL (4.2-5.4) L 12/19/21 05:54 Hgb 10.7 g/dL (12.0-16.0) L 12/19/21 05:54 Hct 33.6 % (37-47) L 12/19/21 05:54 MCV 93.9 fL (80-100) 12/19/21 05:54 MCH 29.9 pg (25-34) 12/19/21 05:54 MCHC 31.8 g/dL (32-36) L 12/19/21 05:54 RDW Std Deviation 48.4 fL (36.4-46.3) H 12/19/21 05:54 RDW Coeff of Evelia 14.1 % (11.5-14.5) 12/19/21 05:54 Plt Count 231 K/uL (130-400) 12/19/21 05:54 MPV 10.2 fL (7.4-10.4) 12/19/21 05:54 Sodium 138 mmol/L (136-145) 12/19/21 05:54 Potassium 4.2 mmol/L (3.5-5.1) 12/19/21 05:54 Chloride 105 mmol/L (98-107) 12/19/21 05:54 Carbon Dioxide 25 mmol/L (21-32) 12/19/21 05:54 Anion Gap 8 (3-11) 12/19/21 05:54 BUN 15 mg/dl (6-23) 12/19/21 05:54 Creatinine 0.63 mg/dl (0.6-1.2) 12/21/21 06:52 Est Cr Clr Drug Dosing 133.1 ml/min 12/21/21 06:52 Est GFR ( Amer) 119.5 ml/min 12/21/21 06:52 Est GFR (Non-Af Amer) 103.1 ml/min 12/21/21 06:52 BUN/Creatinine Ratio 19.2 (10-20) 12/19/21 05:54 Glucose 128 mg/dl (70-99(Fasting)) H 12/19/21 05:54 Calcium 7.9 mg/dl (8.5-10.1) L 12/19/21 05:54 Impressions Knee X-Ray 12/18/21 15:27 RIGHT KNEE 2 VIEWS History: Right total knee arthroplasty. Degenerative arthritis. Postop. FINDINGS: The patient is status post a right total knee arthroplasty. The hardware is intact. No fracture or dislocation. Skin janett are in place. IMPRESSION: Right total knee arthroplasty. No evidence for hardware complication. ACT 112: Negative or not required by law. Electronically signed by: Marcos Castañeda M.D. 12/18/2021 4:25 PM
[2021-12-22] MEDS: ENOXAPARIN INJ 30 MG/0.3 ML SYR SQ SCH ×2 (08:51→20:23)
[2021-12-22] MEDS: DOCUSATE SODIUM 100 MG CAP PO SCH ×2 (08:51→20:25)
[2021-12-22] MEDS: CeleBREX 200 MG CAP PO SCH ×2 (08:51→20:23)
[2021-12-22] MEDS: MULTIVITAMIN TAB PO SCH (08:51)
[2021-12-22] MEDS: PANTOprazole 40 MG TAB PO SCH (08:52)
[2021-12-22] MEDS: PREGABALIN 100 MG CAP PO SCH ×2 (08:53→20:26)
[2021-12-22] MEDS: SENNA 8.6 MG TAB PO SCH (20:25)
[2021-12-23] MEDS: CHECK CLONIDINE PATCH PLACEMENT SCH ×2 (00:01→09:44)
[2021-12-23] MEDS: ACETAMINOPHEN 500 MG TAB PO SCH ×4 (05:54→21:22)
[2021-12-23] MEDS: HYDROmorphone INJ 1 MG/ML SYRINGE IV PRN ×2 (06:05→23:48)
[2021-12-23] MEDS: ONDANSETRON INJ 2 MG/ML 2 ML VIAL IV PRN (06:13)
--- NOTE | 2021-12-23 07:01 | Ultrasound Report ---
RIGHT LOWER EXTREMITY VENOUS DOPPLER HISTORY: Right leg pain; clot concern COMPARISON STUDY: None. FINDINGS: There is normal compressibility, flow, and augmentation within the right lower extremity de ep venous system. IMPRESSION: No DVT within the right lower extremity ACT 112: Negative or not required by law. Electronically signed by: Marcos Castañeda M.D. 12/23/2021 6:58 AM
--- NOTE | 2021-12-23 09:20 | Orthopedic Progress Note ---
Date of Service December 23, 2021 Assessment & Plan (1) Status post total right knee replacement: Plan: POD 5- Right total knee replacement continue PT/OT. Pain medication as prescribed PRN. Allowed to be out of bed weight bear as tolerated right lower extremity with wal ker and knee immobilizer on her right leg when out of bed, can discontinue knee immobilizer when has good leg control. Ice to right knee PRN pain/swelling. Teds/AV impulse boots and Lovenox for DVT prophylaxis. [facility] currently [facility]. If not [facility] then patient may consider SNF. She doesn't feel that she is able to go home. She's worried if she goes home she will not get the adequate rehab needed to be successful from this surgery. Discussed with case management. Will continue to follow All questions answered. Admission and Anticipated Discharge Date Admission Date: December 20, 2021 Supervising Physician Co-Signing Physician Notes I, Dr. Callahan, saw and examined the patient and discussed the management with my PA. I reviewed my PAs note and agree with the documented findings and the plan of care I developed. Subjective Patient is resting comfortably sitting on the edge of her bed this AM. She has been able to participate in PT. Pain is managed with oral pain meds. Nausea has resolved with use of scopolomine patch. States that she feels better today than yesterday. She also denies CP, SOB, vomiting, fever, chills, sweats, lethargy, numbness/tingling. She is anticipating going to rehab but has not yet been approved. Physical Exam Physical Exam: Right knee: Prevana in place and draining appropriately. Patient able to actively flex to 90 degrees and extend to 0. Calf is soft and supple but TTP. Periph pulses palpable. Cap refill less than 2 seconds. Able to preform active assisted SLRT this AM. Able to actively dorsi and plantar flex foot. Has chronic Drop foot. NV intact in Rt LE. Results & Data ([facility]) Vital Signs (Past 12 Hours) Vital Signs Temp Pulse Resp BP Pulse Ox 12/23/21 07:33 36.4 C L 80 16 108/66 97 12/22/21 22:47 36.7 C 80 18 101/68 98 Diagnostic Findings Laboratory Results WBC 9.90 K/uL (4.8-10.8) 12/19/21 05:54 RBC 3.58 M/uL (4.2-5.4) L 12/19/21 05:54 Hgb 10.7 g/dL (12.0-16.0) L 12/19/21 05:54 Hct 33.6 % (37-47) L 12/19/21 05:54 MCV 93.9 fL (80-100) 12/19/21 05:54 MCH 29.9 pg (25-34) 12/19/21 05:54 MCHC 31.8 g/dL (32-36) L 12/19/21 05:54 RDW Std Deviation 48.4 fL (36.4-46.3) H 12/19/21 05:54 RDW Coeff of Evelia 14.1 % (11.5-14.5) 12/19/21 05:54 Plt Count 231 K/uL (130-400) 12/19/21 05:54 MPV 10.2 fL (7.4-10.4) 12/19/21 05:54 Sodium 138 mmol/L (136-145) 12/19/21 05:54 Potassium 4.2 mmol/L (3.5-5.1) 12/19/21 05:54 Chloride 105 mmol/L (98-107) 12/19/21 05:54 Carbon Dioxide 25 mmol/L (21-32) 12/19/21 05:54 Anion Gap 8 (3-11) 12/19/21 05:54 BUN 15 mg/dl (6-23) 12/19/21 05:54 Creatinine 0.63 mg/dl (0.6-1.2) 12/21/21 06:52 Est Cr Clr Drug Dosing 133.1 ml/min 12/21/21 06:52 Est GFR ( Amer) 119.5 ml/min 12/21/21 06:52 Est GFR (Non-Af Amer) 103.1 ml/min 12/21/21 06:52 BUN/Creatinine Ratio 19.2 (10-20) 12/19/21 05:54 Glucose 128 mg/dl (70-99(Fasting)) H 12/19/21 05:54 Calcium 7.9 mg/dl (8.5-10.1) L 12/19/21 05:54 Impressions Knee X-Ray 12/18/21 15:27 RIGHT KNEE 2 VIEWS History: Right total knee arthroplasty. Degenerative arthritis. Postop. FINDINGS: The patient is status post a right total knee arthroplasty. The hardware is intact. No fracture or dislocation. Skin janett are in place. IMPRESSION: Right total knee arthroplasty. No evidence for hardware complication. ACT 112: Negative or not required by law. Electronically signed by: Marcos Castañeda M.D. 12/18/2021 4:25 PM Venous Doppler Study 12/22/21 23:11 RIGHT LOWER EXTREMITY VENOUS DOPPLER HISTORY: Right leg pain; clot concern COMPARISON STUDY: None. FINDINGS: There is normal compressibility, flow, and augmentation within the right lower extremity deep venous system. IMPRESSION: No DVT within the right lower extremity ACT 112: Negative or not required by law. Electronically signed by: Marcos Castañeda M.D. 12/23/2021 6:58 AM
[2021-12-23] MEDS: oxyCODONE HCL IR 5 MG TAB (IMMEDIATE RELEASE) PO PRN ×4 (09:43→22:57)
[2021-12-23] MEDS: ENOXAPARIN INJ 30 MG/0.3 ML SYR SQ SCH ×2 (09:44→21:19)
[2021-12-23] MEDS: MULTIVITAMIN TAB PO SCH (09:45)
[2021-12-23] MEDS: CeleBREX 200 MG CAP PO SCH ×2 (09:45→21:25)
[2021-12-23] MEDS: PREGABALIN 100 MG CAP PO SCH ×2 (09:45→21:20)
[2021-12-23] MEDS: PANTOprazole 40 MG TAB PO SCH (09:45)
[2021-12-23] MEDS: DOCUSATE SODIUM 100 MG CAP PO SCH ×2 (09:45→21:19)
[2021-12-23] MEDS: SENNA 8.6 MG TAB PO SCH (21:19)
[2021-12-24 05:37] LABS: Hematocrit (blood only) 34.8 % (37-47); Hemoglobin 11.6 g/dL (12.0-16.0); Mean Corpuscular Hemoglobin 30.9 pg (25-34); Mean Corpuscular Hgb Conc 33.3 g/dL (32-36); Mean Corpuscular Volume 92.6 fL (80-100); Mean Platelet Volume 9.5 fL (7.4-10.4); Platelet Count 259 K/uL (130-400); RDW Coefficient of Variation 14.4 % (11.5-14.5); Red Blood Count 3.76 M/uL (4.2-5.4); White Blood Count 4.83 K/uL (4.8-10.8)
[2021-12-24 06:06] LABS: Creatinine Clr Calc Pharmacy 152.4 ml/min; Est GFR (Non-African American) 107.8 ml/min
[2021-12-24] MEDS: HYDROmorphone INJ 1 MG/ML SYRINGE IV PRN ×2 (06:48→21:29)
[2021-12-24] MEDS: ACETAMINOPHEN 500 MG TAB PO SCH ×3 (06:53→21:23)
[2021-12-24] MEDS: CeleBREX 200 MG CAP PO SCH ×2 (08:41→21:27)
[2021-12-24] MEDS: DOCUSATE SODIUM 100 MG CAP PO SCH ×2 (08:42→21:24)
[2021-12-24] MEDS: PANTOprazole 40 MG TAB PO SCH (08:42)
[2021-12-24] MEDS: ENOXAPARIN INJ 30 MG/0.3 ML SYR SQ SCH ×2 (08:42→21:23)
[2021-12-24] MEDS: MULTIVITAMIN TAB PO SCH (08:43)
[2021-12-24] MEDS: PREGABALIN 100 MG CAP PO SCH ×2 (08:45→21:29)
[2021-12-24] MEDS: oxyCODONE HCL IR 5 MG TAB (IMMEDIATE RELEASE) PO PRN ×3 (08:46→19:51)
--- NOTE | 2021-12-24 11:34 | Progress Notes ---
DATE OF SERVICE: 12/24/2021. She is resting comfortably in bed. She reports some concerns about leg pain and swelling as well as bruising. She had an ultrasound done, which was negative for DVT. She is concerned about her ongoin g hospitalization and rehabilitation and what the next step is. She has also experienced a lot of pa in. She is afebrile. Her vital signs are stable. White count is 5, hemoglobin 12, hematocrit 35, platel ets are 259. Creatinine noted. On exam today, her foot is warm with capillary refill less than 2 seconds. She has no palpable pedal pulses. There is mild swelling of the foot, leg and ankle with bruising into the posterior calf and posterior knee area. Her wound VAC is intact and functioning properly. She is able to fully straig hten her knee, but cannot do a straight leg raise. She can bend her knee about 60 degrees. She has full ankle dorsiflexion and plantar flexion, although it is a slow process to get there. She does hurd ve 5 to 5-/5 strength with ankle and toe dorsiflexion, plantarflexion, inversion and eversion. She h as intact normal sensation throughout her foot except for numbness on the lateral border of her foot, which she states is chronic. IMPRESSION: Postop day #6 status post a right total knee arthroplasty. PLAN: We will await the authorization for acute inpatient rehabilitation. We will continue PT and O T as well as DVT prophylaxis. We talked about being prepared for the next steps, which are either go ing home or penitentiary facility. We talked about the pros and cons of each of these. The disco mfort on the lateral side of her knee is likely secondary to the extensive dissection done over there because of her lateral compartment knee arthritis. I reassured her that the bruising is normal. Th e stocking can be discontinued if it is causing her more issues than its worth. She can shower in a seated position. Continue routine postoperative management. Reassurance was offered her that everyt fidel is going well with the knee replacement thus far. Job ID: [id number]
--- NOTE | 2021-12-24 18:59 | Progress Notes ---
DATE OF SERVICE: 12/24/2021 As of this afternoon, we had not heard whether there has been an approval for [facility] [employer]. Joan cannon was via the caseworker protective services. The patient evidently received a call from her insurance company and the y had asked her some questions. They indicated to her that they will hopefully have a decision tomor row morning. The patient's and sister were at bedside. They both expressed concerns that yuki moore was not getting the attention that she needed. She is taking medication and getting up and going t o the bathroom on her own. They are concerned that she is a fall risk. They are concerned because s ometimes she forgets to ask for her pain medication and they wanted to see if she could be on a regul ar schedule of pain medicine. I discussed with them the reasons why we do not recommend that she be on a scheduled interval of narcotic pain medication. We talked about the next step. Hopefully, [facility] is approved, but if it is not, home is an option or [facility] group home could be denied as well. We talked about her dogs at home as well as her situation there. Her daughter has a baby and they do not feel that it is a good situation. It is a 2-level home, the bedrooms are upsta irs. We discussed that it is possible that her only option is to go home. They should hopefully try to figure out a plan for the next step. Her is concerned about her going back home. I disc ussed with him that people can take medication for pain and be functionally mobile. She is getting h er therapy here. Her sister also expressed concerns that people were talking to the patient like the insurance company, etc. She is taking medication and she is concerned that she is not fully aware o f what is going on and she would like to be more included in these conversations and that is why she took time off work. I spoke to the nursing staff regarding the patient's and her family's concerns r egarding her care. Job ID: [id number]
[2021-12-24] MEDS: SENNA 8.6 MG TAB PO SCH (21:24)
[2021-12-25] MEDS: ACETAMINOPHEN 500 MG TAB PO SCH ×2 (06:05→12:23)
[2021-12-25] MEDS: HYDROmorphone INJ 1 MG/ML SYRINGE IV PRN (06:05)
[2021-12-25] MEDS: ONDANSETRON INJ 2 MG/ML 2 ML VIAL IV PRN (06:17)
[2021-12-25] MEDS: oxyCODONE HCL IR 5 MG TAB (IMMEDIATE RELEASE) PO PRN ×2 (08:00→12:23)
[2021-12-25] MEDS: DOCUSATE SODIUM 100 MG CAP PO SCH (08:01)
[2021-12-25] MEDS: CeleBREX 200 MG CAP PO SCH (08:01)
[2021-12-25] MEDS: ENOXAPARIN INJ 30 MG/0.3 ML SYR SQ SCH (08:02)
[2021-12-25] MEDS: PREGABALIN 100 MG CAP PO SCH (08:03)
--- NOTE | 2021-12-25 09:42 | Orthopedic Progress Note ---
Date of Service December 25, 2021 Assessment & Plan (1) Status post total right knee replacement: Plan: POD 6- Right total knee replacement continue PT/OT. Pain medication as prescribed PRN. Allowed to be out of bed weight bear as tolerated right lower extremity with wal ker and knee immobilizer on her right leg when out of bed, can discontinue knee immobilizer when has good leg control. Ice to right knee PRN pain/swelling. Teds/AV impulse boots and Lovenox for DVT prophylaxis. Patient is very pleased with the progress that she has met. She is not sure that she will be accepted to [facility] and if possible would like to be discharged home today. Will continue to follow All questions answered. Admission and Anticipated Discharge Date Admission Date: December 20, 2021 Subjective Patient is resting comfortably lying in her bed this AM. She has been able to participate in PT. Pain is managed with oral pain meds. States that she feels better today than yesterday. Patient states that she has extended her distance of walking several times a day around both nurses stations on the third floor. She states that today she was also able to lift her leg off the bed. She states of her while she would like to go home today. She also denies CP, SOB, vomiting, fever, chills, sweats, lethargy, numbness/tingling. She is anticipat ing going to rehab but has not yet been approved. Review of Systems Review of Systems: All systems reviewed & are unremarkable except as noted in Subjective Physical Exam Physical Exam: Right knee: Prevana in place and draining appropriately. Patient able to actively flex to 90 degrees and extend to 0. Calf is soft and supple but slightly TTP. Periph pulses palpable. Cap refill less than 2 seconds. Able to preform active SLRT this AM By lifting he had approximately 4 inches off the bed. Able to actively dorsi and plantar flex foot. Has chronic Drop foot. NV intact in Rt LE. Results & Data ([facility]) Vital Signs (Past 12 Hours) Vital Signs Temp Pulse Resp BP Pulse Ox 12/25/21 07:14 36.7 C 80 16 104/69 99 12/24/21 22:17 36.7 C 78 18 97/64 L 96 Diagnostic Findings Laboratory Results WBC 4.83 K/uL (4.8-10.8) 12/24/21 05:20 RBC 3.76 M/uL (4.2-5.4) L 12/24/21 05:20 Hgb 11.6 g/dL (12.0-16.0) L 12/24/21 05:20 Hct 34.8 % (37-47) L 12/24/21 05:20 MCV 92.6 fL (80-100) 12/24/21 05:20 MCH 30.9 pg (25-34) 12/24/21 05:20 MCHC 33.3 g/dL (32-36) 12/24/21 05:20 RDW Std Deviation 49.0 fL (36.4-46.3) H 12/24/21 05:20 RDW Coeff of Evelia 14.4 % (11.5-14.5) 12/24/21 05:20 Plt Count 259 K/uL (130-400) 12/24/21 05:20 MPV 9.5 fL (7.4-10.4) 12/24/21 05:20 Sodium 138 mmol/L (136-145) 12/19/21 05:54 Potassium 4.2 mmol/L (3.5-5.1) 12/19/21 05:54 Chloride 105 mmol/L (98-107) 12/19/21 05:54 Carbon Dioxide 25 mmol/L (21-32) 12/19/21 05:54 Anion Gap 8 (3-11) 12/19/21 05:54 BUN 15 mg/dl (6-23) 12/19/21 05:54 Creatinine 0.55 mg/dl (0.6-1.2) L 12/24/21 05:20 Est Cr Clr Drug Dosing 152.4 ml/min 12/24/21 05:20 Est GFR ( Amer) 125.0 ml/min 12/24/21 05:20 Est GFR (Non-Af Amer) 107.8 ml/min 12/24/21 05:20 BUN/Creatinine Ratio 19.2 (10-20) 12/19/21 05:54 Glucose 128 mg/dl (70-99(Fasting)) H 12/19/21 05:54 Calcium 7.9 mg/dl (8.5-10.1) L 12/19/21 05:54 Impressions Knee X-Ray 12/18/21 15:27 RIGHT KNEE 2 VIEWS History: Right total knee arthroplasty. Degenerative arthritis. Postop. FINDINGS: The patient is status post a right total knee arthroplasty. The hardware is intact. No fracture or dislocation. Skin janett are in place. IMPRESSION: Right total knee arthroplasty. No evidence for hardware complication. ACT 112: Negative or not required by law. Electronically signed by: Marcos Castañeda M.D. 12/18/2021 4:25 PM Venous Doppler Study 12/22/21 23:11 RIGHT LOWER EXTREMITY VENOUS DOPPLER HISTORY: Right leg pain; clot concern COMPARISON STUDY: None. FINDINGS: There is normal compressibility, flow, and augmentation within the right lower extremity deep venous system. IMPRESSION: No DVT within the right lower extremity ACT 112: Negative or not required by law. Electronically signed by: Marcos Castañeda M.D. 12/23/2021 6:58 AM
[2021-12-25] MEDS: MULTIVITAMIN TAB PO SCH (10:41)
[2021-12-25] MEDS: PANTOprazole 40 MG TAB PO SCH (10:41)
--- NOTE | 2021-12-25 16:57 | Discharge Summary ---
Date of Service December 25, 2021 Discharge Data Procedures Performed Operation Date: 12/18/21 09:30 Actual Procedures p Right Total Knee Arthroplasty(Right) - Garland Silva MD Hospital Course (1) Status post total right knee replacement: Patient was admitted to [facility] after undergoing an elective right total knee arthroplasty by Dr. Silva on December 18, 2021. Her surgery was performed with spinal anesthesia and a peripheral nerve block. She tolerated the procedure well without any intraoperative complications. She was given 2 g of IV Ancef for surgical prophylaxis which was continued for 24 hours after surgery. Postoperatively x-rays were taken in the recovery unit and showed a stable prosthesis of her right knee. She was allowed out of bed, weight-bear as tolerated with a knee immobilizer on her right lower extremity with the assistance of a walker. Her regular home medications were continued. She was given IV Dilaudid, oxycodone, tramadol, IV Toradol, Tylenol for postoperative pain control. A bowel regimen was also prescribed as needed. She was given Colace 100 mg p.o. twice daily. Physical therapy and Occupational Therapy consults were placed. Case management consult was also placed. Her vital signs remained stable during her inpatient stay. She was placed on Lovenox 30 mg twice daily for DVT prophylaxis which will be continued for 2 to 4 weeks after surgery. She was also given YESSICA stockings which were discontinued on postoperative day 6 due to them cutting into her leg And causing pain. She requested discharge to [facility]. Referral and authorization was implemented on December 20, 2021. On postoperative day 2 we also took off her postsurgical dressing and placed a Prevena wound VAC. This was left in place until the time of her discharge. She participated in physical therapy and Occupational Therapy on a daily basis. Authorization for discharge to [facility] took 6 days, Hence her lengthy admission. She did not want to be discharged home until an authorization determination was made by [facility]. On Saturday, December 25, 2021 her insurance approved discharged to [facility]. She was discharged to [facility] in stable condition. She was transported by [facility]. Discharge instructions were provided. She will follow-up as scheduled as an outpatient. All questions were answered. She was seen and evaluated by someone from our office/staff on a daily basis. H&H remained stable during her inpatient stay. Her CBC on Jeff, December 24, 2021 was normal. We will continue to do this weekly while she is on Lovenox. She understands and agrees with the plan.
== END 2021-12-25 13:11 | DRG 470 ==
LOC: 3E 08:18 → ASU 08:18
DX: M17.11 Unilateral primary osteoarthritis, right knee; K21.9 Gastro-esophageal reflux disease without esophagitis; Z88.6 Allergy status to analgesic agent